=== PATIENT | female | born 1935 | race Caucasian/White ===

== ENCOUNTER 2021-02-11 09:53 | Emergency (ER) | payer MEDICARE ==
[2021-02-11 10:18] VITALS: BP 152/62; PULSE 78
[2021-02-11] MEDS ORDERED: Sodium Chloride 0.9% 10 ML Syringe FLUSH PRN (10:49)
--- NOTE | 2021-02-11 10:49 | EDM.PDOC ---
ED HPI GENERAL MEDICAL PROBLEM - General Chief Complaint: General Stated Complaint: WEAKNESS WHEN TRYING TO GET UP AND IN R ARM Time Seen by Provider: 02/11/21 10:40 Source of Information: Reports: Patient, Family, RN Notes Reviewed History Limitations: Reports: No Limitations - History of Present Illness INITIAL COMMENTS - FREE TEXT/NARRATIVE: 86-year-old female presents emergency department day complaint of weakness increasing shortness of breath and weight gain as well as leg edema. She has a known history of coronary artery disease as well as congestive heart failure she states the symptoms have progressively gotten worse over the last 2 weeks she used to be on Lasix 40 mg daily this has been cut back to 20 mg daily about 6 months prior Lower Back Pain Score (Numeric/FACES): 8 - Related Data Allergies Allergy/AdvReac Type Severity Reaction Status Date / Time shellfish derived Allergy Hives Verified 02/11/21 10:25 enviromental Allergy Other Uncoded 02/11/21 10:25 Home Meds: Home Meds Simvastatin 40 mg PO ACLUNCH 05/01/14 [History] cycloSPORINE [Restasis] 1 drop EYEBOTH BID 05/01/14 [History] Aspirin 81 mg PO DAILY 03/02/15 [History] Furosemide 20 mg PO DAILY 03/02/15 [History] Magnesium Chloride [Mag-64] 64 mg PO TID 03/02/15 [History] Metoprolol Tartrate 12.5 mg PO BID 03/02/15 [History] Potassium Chloride 10 meq PO BID 03/02/15 [History] metFORMIN HCl [Metformin HCl] 500 mg PO BID 03/03/15 [History] Acetaminophen 1 - 2 tab PO Q6H PRN 02/08/19 [History] Calcium Citrate/Vitamin D3 [Calcium Citrate + D] 2 tab PO BID 02/08/19 [History] Cholecalciferol (Vitamin D3) [Vitamin D3] 2,000 unit PO DAILY 02/08/19 [History] Insulin Detemir [Levemir Flextouch] 30 units SQ ACBREAKFAST 02/08/19 [History] Losartan Potassium 12.5 tab PO DAILY 02/08/19 [History] Past Medical History HEENT History: Reports: Impaired Vision Cardiovascular History: Reports: Bypass, CAD, High Cholesterol, Hypertension Other Gastrointestinal History: colon ca 1977 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: Musculoskeletal History: Reports: Back Pain, Chronic Endocrine/Metabolic History: Reports: Diabetes, Type II, Obesity/BMI 30+ Oncologic (Cancer) History: Reports: Colon - Infectious Disease History Infectious Disease History: Reports: Chicken Pox, Measles, Mumps - Past Surgical History Head Surgeries/Procedures: Reports: None HEENT Surgical History: Reports: Cataract Surgery Cardiovascular Surgical History: Reports: Coronary Artery Bypass GI Surgical History: Reports: Appendectomy Endocrine Surgical History: Reports: None Musculoskeletal Surgical History: Reports: None Oncologic Surgical History: Reports: None Dermatological Surgical History: Reports: None Social & Family History - Tobacco Use Tobacco Use Status *Q: Never Tobacco User Second Hand Smoke Exposure: No - Caffeine Use Caffeine Use: Reports: Coffee, Soda - Recreational Drug Use Recreational Drug Use: No ED ROS GENERAL - Review of Systems Review Of Systems: See Below Constitutional: Reports: No Symptoms HEENT: Reports: No Symptoms Respiratory: Reports: Shortness of Breath Cardiovascular: Reports: Dyspnea on Exertion, Edema. Denies: Chest Pain GI/Abdominal: Reports: No Symptoms ED EXAM, GENERAL - Physical Exam Exam: See Below Exam Limited By: No Limitations General Appearance: Alert, WD/WN, No Apparent Distress Respiratory/Chest: No Respiratory Distress, Chest Non-Tender, Decreased Breath Sounds, Crackles Cardiovascular: Regular Rate, Rhythm, No Murmur GI/Abdominal: Soft, Non-Tender Extremities: Pedal Edema Course - Vital Signs Last Recorded V/S: Last Vital Signs Temp 97.5 F 02/11/21 10:29 Pulse 78 02/11/21 10:29 Resp 18 02/11/21 10:29 BP 152/62 H 02/11/21 10:29 Pulse Ox 90 L 02/11/21 10:29 - Orders/Labs/Meds Orders: Active Orders 24 hr Category Date Time Status Peripheral IV Care [RC] . DIRECTED Care 02/11/21 10:49 Active Sodium Chloride 0.9% [Saline Flush] Med 02/11/21 10:49 Active 10 ml FLUSH ASDIRECTED PRN Peripheral IV Insertion Adult [OM.PC] Urgent Oth 02/11/21 10:49 Ordered Medication Orders Sodium Chloride (Sodium Chloride 0.9% 10 Ml Syringe) 10 ml FLUSH ASDIRECTED PRN PRN Reason: Keep Vein Open Last Admin: 02/11/21 12:54 Dose: 10 ml Documented by: PREILOR Labs: Laboratory Tests 02/11/21 02/11/21 Range/Units 11:07 11:07 WBC 6.9 (4.5-11.0) K/uL RBC 4.46 (3.30-5.50) M/uL Hgb 13.4 (12.0-15.0) g/dL Hct 44.3 (36.0-48.0) % MCV 99 H (80-98) fL MCH 30 (27-31) pg MCHC 30 L (32-36) % Plt Count 214 (150-400) K/uL Add Manual Diff Yes Neutrophils % (Manual) 76 H (36-66) % Band Neutrophils % 1 L (5-11) % Lymphocytes % (Manual) 16 L (24-44) % Monocytes % (Manual) 7 H (2-6) % Eosinophils % (Manual) 0 L (2-4) % Basophils % (Manual) 0 (0-1) % Nucleated RBCs 1 Sodium 138 L (140-148) mmol/L Potassium 4.9 (3.6-5.2) mmol/L Chloride 103 (100-108) mmol/L Carbon Dioxide 24 (21-32) mmol/L Anion Gap 15.9 H (5.0-14.0) mmol/L BUN 29 H (7-18) mg/dL Creatinine 1.2 H (0.6-1.0) mg/dL Est Cr Clr Drug Dosing 27.60 mL/min Estimated GFR (MDRD) 43 L (>60) Glucose 123 H (74-106) mg/dL Calcium 8.8 (8.5-10.1) mg/dL Total Bilirubin 0.7 D (0.2-1.0) mg/dL AST 49 H D (15-37) U/L ALT 11 L (12-78) U/L Alkaline Phosphatase 325 H D (46-116) U/L Troponin I 0.020 (0.000-0.056) ng/mL NT-Pro-B Natriuret Pep 37740 H (5-450) pg/mL Total Protein 6.4 (6.4-8.2) g/dL Albumin 2.7 L (3.4-5.0) g/dL Globulin 3.7 H (2.3-3.5) g/dL Albumin/Globulin Ratio 0.7 L (1.2-2.2) Meds: Medications Generic Name Dose Route Start Last Admin Trade Name Fremaggy PRN Reason Stop Dose Admin Sodium Chloride 10 ml 02/11/21 10:49 02/11/21 12:54 Sodium Chloride 0.9% 10 Ml Syringe FLUSH 10 ml ASDIRECTED PRN Administration Keep Vein Open Discontinued Medications Generic Name Dose Route Start Last Admin Trade Name Jacobo PRN Reason Stop Dose Admin Furosemide 60 mg 02/11/21 11:44 02/11/21 12:53 Furosemide 40 Mg/4 Ml Vial IVPUSH 02/11/21 11:45 60 mg ONETIME ONE Administration Departure - Departure Time of Disposition: 14:05 Disposition: Home, Self-Care 01 Condition: Fair Clinical Impression: Acute exacerbation of congestive heart failure Qualifiers: Heart failure type: unspecified Qualified Code(s): I50.9 - Heart failure, unspecified - Discharge Information Instructions: Heart Failure, Self Care, [id number] Referrals: Magan Cabrera MD [Primary Care Provider] - Forms: ED Department Discharge Additional Instructions: Please report to the registration desk tomorrow for outpatient medication treatment nursing staff will call me and I will come and chat with you at that time Sepsis Event Note (ED) - Evaluation Sepsis Screening Result: No Definite Risk - Focused Exam Vital Signs: Vital Signs Temp Pulse Resp BP Pulse Ox 02/11/21 10:29 97.5 F 78 18 152/62 H 90 L 02/11/21 10:17 97.5 F 78 18 152/62 H 90 L - My Orders Last 24 Hours: My Active Orders 02/11/21 10:49 Peripheral IV Care [RC] . DIRECTED Sodium Chloride 0.9% [Saline Flush] 10 ml FLUSH ASDIRECTED PRN Peripheral IV Insertion Adult [OM.PC] Urgent - Assessment/Plan Last 24 Hours: My Active Orders 02/11/21 10:49 Peripheral IV Care [RC] . DIRECTED Sodium Chloride 0.9% [Saline Flush] 10 ml FLUSH ASDIRECTED PRN Peripheral IV Insertion Adult [OM.PC] Urgent Plan: Assessment Acuity = acute Site and laterality = exacerbation congestive heart failure Etiology = unknown Manifestations = shortness of breath weight gain Location of injury = Home Lab values = CBC unremarkable creatinine elevated 1.2 consistent chronic renal failure stage G3 B BNP markedly elevated 18,362 albumin low 2.7 consistent with hypoalbuminemia alk phos elevated 325 chest x-ray demonstrates cardiomegaly Plan She had good success with 60 mg IV Lasix I did offer hospital admission for the ongoing weakness and treatment of her congestive heart failure she preferred to go home and try outpatient treatment. Therefore we will leave the IV in place she will return to either the ED or the outpatient surgery center for another dose of IV Lasix I will reassess her at that time and adjust medications accordingly This note was dictated using [employer] voice recognition software please call with any questions on syntax or grammar.
[2021-02-11] MEDS ORDERED: Furosemide 40 MG/4 ML VIAL IVPUSH ONE (11:44)
--- NOTE | 2021-02-11 12:23 | CR ---
CHEST: Portable 02/11/2021 at 11:20 AM CLINICAL HISTORY:SOB COMPARISON:2011 FINDINGS: The heart is enlarged. Pulmonary vascularity is normal. There is mild generalized interstitial prominence which is felt to be chronic. There is blunting the right costophrenic angle which may represent some minimal right effusion. Impression: Limited study Mild cardiomegaly. Generalized interstitial prominence. Much of this is chronic.
== END 2021-02-11 14:31 | disposition home or self-care (01) ==
LOC: JP.ED 09:53
DX: I11.0 Hypertensive heart disease with heart failure (principal); I50.9 Heart failure, unspecified; I25.10 Atherosclerotic heart disease of native coronary artery without angina pectoris; E11.9 Type 2 diabetes mellitus without complications; E78.00 Pure hypercholesterolemia, unspecified; E66.9 Obesity, unspecified; Z68.36 Body mass index [BMI] 36.0-36.9, adult; Z91.013 Allergy to seafood; Z91.048 Other nonmedicinal substance allergy status; Z79.82 Long term (current) use of aspirin; Z79.4 Long term (current) use of insulin; Z79.899 Other long term (current) drug therapy
CPT/HCPCS: 36415; 71045; 80053; 83880; 84484; 85025; 96374; 99285; J1940

== ENCOUNTER 2021-02-20 12:29 | Inpatient (IN) | payer MEDICARE ==
[2021-02-20] MEDS ORDERED: Sodium Chloride 0.9% 10 ML Syringe FLUSH PRN (13:01)
[2021-02-20] MEDS ORDERED: Glucose Gel 15 GM in 37.5 GM Tube PO PRN (13:01)
[2021-02-20] MEDS ORDERED: Ondansetron 4 MG/2 ML SDV IV PRN (13:01)
[2021-02-20] MEDS ORDERED: Polyethylene Glycol 3350 Powder 17 GM Packet PO PRN (13:01)
[2021-02-20] MEDS ORDERED: 50% Dextrose in Water 50 ML Syringe IV PRN (13:01)
[2021-02-20] MEDS ORDERED: Albuterol 0.083% 2.5 MG/3 ML Neb Soln NEB PRN (13:01)
--- NOTE | 2021-02-20 13:08 | PCM.HP.2 ---
H&P History of Present Illness - General Date of Service: 02/20/21 Admit Problem/Dx: Admission Diagnosis/Problem Admission Diagnosis/Problem CHF, Congestive heart failure Source of Information: Patient, Provider, RN Notes Reviewed History Limitations: Reports: No Limitations - History of Present Illness Initial Comments - Free Text/Narative: Ms. Angulo is an 86-year-old woman who was admitted as a direct admission from the clinic with increased peripheral edema and evidence of pulmonary edema on chest x-ray, having failed outpatient management. She has had difficulty with progressive peripheral edema now extending into her thighs. Chest x-ray obtained last week at the clinic did suggest congestive heart failure as well but she denies significant symptoms of shortness of breath, PND, or orthopnea. Her dose of oral diuretic therapy was increased, unfortunately edema has worsened despite more aggressive therapy. Her weight is up approximately 20 pounds from her baseline and renal function has declined over the past few weeks. She denies any symptoms of infection specifically no fever chills or productive cough. - Related Data Allergies/Adverse Reactions: Allergies Allergy/AdvReac Type Severity Reaction Status Date / Time shellfish derived Allergy Hives Verified 02/11/21 10:25 enviromental Allergy Other Uncoded 02/11/21 10:25 Home Medications: Home Meds Simvastatin 40 mg PO ACLUNCH 05/01/14 [History] cycloSPORINE [Restasis] 1 drop EYEBOTH BID 05/01/14 [History] Aspirin 81 mg PO DAILY 03/02/15 [History] Furosemide 40 mg PO BID 03/02/15 [History] Magnesium Chloride [Mag-64] 64 mg PO TID 03/02/15 [History] Metoprolol Tartrate 12.5 mg PO BID 03/02/15 [History] Potassium Chloride 10 meq PO DAILY 03/02/15 [History] metFORMIN HCl [Metformin HCl] 500 mg PO BID 03/03/15 [History] Acetaminophen 1 - 2 tab PO Q6H PRN 02/08/19 [History] Calcium Citrate/Vitamin D3 [Calcium Citrate + D] 2 tab PO BID 02/08/19 [History] Cholecalciferol (Vitamin D3) [Vitamin D3] 2,000 unit PO DAILY 02/08/19 [History] Insulin Detemir [Levemir Flextouch] 30 units SQ ACBREAKFAST 02/08/19 [History] Losartan Potassium 12.5 mg PO DAILY 02/08/19 [History] Past Medical History HEENT History: Reports: Impaired Vision Cardiovascular History: Reports: Bypass, CAD, High Cholesterol, Hypertension Other Gastrointestinal History: colon ca 1977 Genitourinary History: Reports: None 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: Musculoskeletal History: Reports: Back Pain, Chronic Endocrine/Metabolic History: Reports: Diabetes, Type II, Obesity/BMI 30+ Oncologic (Cancer) History: Reports: Colon - Infectious Disease History Infectious Disease History: Reports: Chicken Pox, Measles, Mumps - Past Surgical History Head Surgeries/Procedures: Reports: None HEENT Surgical History: Reports: Cataract Surgery Cardiovascular Surgical History: Reports: Coronary Artery Bypass GI Surgical History: Reports: Appendectomy Endocrine Surgical History: Reports: None Musculoskeletal Surgical History: Reports: None Oncologic Surgical History: Reports: None Dermatological Surgical History: Reports: None Social & Family History - Caffeine Use Caffeine Use: Reports: Coffee, Soda H&P Review of Systems - Review of Systems: Review Of Systems: See Below General: Reports: Malaise, Weakness, Fatigue. Denies: Fever, Chills HEENT: Reports: No Symptoms Pulmonary: Reports: No Symptoms Cardiovascular: Reports: Dyspnea on Exertion, Edema. Denies: Chest Pain, Palpitations, Orthopnea, PND, Lightheadedness, Syncope Gastrointestinal: Reports: No Symptoms Genitourinary: Reports: No Symptoms Musculoskeletal: Reports: No Symptoms Skin: Reports: No Symptoms Psychiatric: Reports: No Symptoms Neurological: Reports: No Symptoms Hematologic/Lymphatic: Reports: No Symptoms Immunologic: Reports: No Symptoms Exam - Exam Exam: See Below - Vital Signs Vital Signs: Last Vital Signs Temp 97.6 F 02/20/21 12:47 Pulse 72 02/20/21 12:47 Resp 24 H 02/20/21 12:47 BP 107/31 L 02/20/21 12:47 Pulse Ox 94 L 02/20/21 12:47 Weight: 200 lb 13.458 oz - Exam Quality Assessment: DVT Prophylaxis General: Alert, Oriented, Cooperative, Mild Distress HEENT: Conjunctiva Clear, Hearing Intact, Mucosa Moist & [place], Normal Nasal Septum, Posterior Pharynx Clear, Pupils Equal Neck: Supple, Trachea Midline, +2 Carotid Pulse wo Bruit Lungs: Normal Respiratory Effort, Decreased Breath Sounds. No: Rales, Rhonchi, Wheezing Cardiovascular: Regular Rate, Regular Rhythm, Normal S1, Normal S2. No: Systolic Murmur, Diastolic Murmur GI/Abdominal Exam: Soft, Non-Tender, No Organomegaly, No Distention Extremities: Non-Tender, Pedal Edema Skin: Warm, Dry, Intact Neurological: Cranial Nerves Intact, Strength Equal Bilateral, Normal Speech, Normal Tone, Sensation Intact. No: Focal Deficit Neuro Extensive - Mental Status: Alert, Oriented x3, Normal Mood/Affect, Normal Cognition, Memory Intact - Patient Data Result Diagrams: 02/20/21 13:40 02/20/21 13:40 Sepsis Event Note - Focused Exam Vital Signs: Vital Signs Temp Pulse Resp BP Pulse Ox 02/20/21 12:47 97.6 F 72 24 H 107/31 L 94 L *Q Meaningful Use (ADM) - VTE Risk Assess *Q Each Risk Factor Represents 1 Point: Swollen Legs, Current, Obesity ( BMI > 25 kg/m2), Congestive heart failure (CHF) Total Score 1 Point Risk Factors: 3 Each Risk Factor Represents 2 Points: None, Malignancy (present or previous) Total Score 2 Point Risk Factors: 2 Each Risk Factor Represents 3 Points: Age 75 Years or Greater Total Score 3 Point Risk Factors: 3 Each Risk Factor Represents 5 Points: None Total Score 5 Point Risk Factors: 0 Venous Thromboembolism Risk Factor Score *Q: 8 Problem List Initiated/Reviewed/Updated: Yes Orders Last 24hrs: Active Orders 24 hr Category Date Time Status Patient Status [ADT] Routine ADT 02/20/21 13:02 Ordered Ambulate [RC] QID Care 02/20/21 13:02 Ordered Communication Order [RC] STAT Care 02/20/21 13:02 Ordered Diabetes Education [RC] Click to Edit Care 02/20/21 13:02 Ordered EKG Documentation Completion [RC] ASDIRECTED Care 02/20/21 13:06 Ordered Height and Weight [RC] DAILY Care 02/20/21 13:02 Ordered Intake and Output [RC] QSHIFT Care 02/20/21 13:02 Ordered Notify Provider Vital Signs [RC] ASDIRECTED Care 02/20/21 13:02 Ordered Notify Provider [RC] PRN Care 02/20/21 13:02 Ordered Oxygen Therapy [RC] PRN Care 02/20/21 13:02 Ordered RT Aerosol Therapy [RC] ASDIRECTED Care 02/20/21 13:05 Ordered Up With Assistance [RC] ASDIRECTED Care 02/20/21 13:01 Ordered Up to Chair [RC] QID Care 02/20/21 13:02 Ordered VTE/DVT Education [RC] Per Unit Routine Care 02/20/21 13:02 Ordered Vital Signs [RC] Q4H Care 02/20/21 13:02 Ordered PT Evaluation and Treatment [CONS] Routine Cons 02/20/21 13:01 Ordered 2 Gram Sodium Diet [DIET] Diet 02/20/21 Lunch Ordered Chest 2V [CR] Stat Exams 02/20/21 13:01 Ordered BASIC METABOLIC PANEL,BMP [CHEM] Timed Lab 02/21/21 05:00 Ordered CBC WITH AUTO DIFF [HEME] Stat Lab 02/20/21 13:01 Ordered COMPREHENSIVE METABOLIC PN,CMP [CHEM] Stat Lab 02/20/21 13:01 Ordered GLUCOSE POC LAB TO COLLECT JPM [POC] QIDACANDBED Lab 02/20/21 16:30 Ordered GLUCOSE POC LAB TO COLLECT JPM [POC] QIDACANDBED Lab 02/20/21 21:00 Ordered GLUCOSE POC LAB TO COLLECT JPM [POC] QIDACANDBED Lab 02/21/21 07:30 Ordered GLUCOSE POC LAB TO COLLECT JPM [POC] QIDACANDBED Lab 02/21/21 11:30 Ordered GLUCOSE POC LAB TO COLLECT JPM [POC] QIDACANDBED Lab 02/21/21 16:30 Ordered GLUCOSE POC LAB TO COLLECT JPM [POC] QIDACANDBED Lab 02/21/21 21:00 Ordered GLUCOSE POC LAB TO COLLECT JPM [POC] QIDACANDBED Lab 02/22/21 07:30 Ordered GLUCOSE POC LAB TO COLLECT JPM [POC] QIDACANDBED Lab 02/22/21 11:30 Ordered GLUCOSE POC LAB TO COLLECT JPM [POC] QIDACANDBED Lab 02/22/21 16:30 Ordered GLUCOSE POC LAB TO COLLECT JPM [POC] QIDACANDBED Lab 02/22/21 21:00 Ordered GLUCOSE POC LAB TO COLLECT JPM [POC] QIDACANDBED Lab 02/23/21 07:30 Ordered GLUCOSE POC LAB TO COLLECT JPM [POC] QIDACANDBED Lab 02/23/21 11:30 Ordered GLUCOSE POC LAB TO COLLECT JPM [POC] QIDACANDBED Lab 02/23/21 16:30 Ordered GLUCOSE POC LAB TO COLLECT JPM [POC] QIDACANDBED Lab 02/23/21 21:00 Ordered GLUCOSE POC LAB TO COLLECT JPM [POC] QIDACANDBED Lab 02/24/21 07:30 Ordered GLUCOSE POC LAB TO COLLECT JPM [POC] QIDACANDBED Lab 02/24/21 11:30 Ordered GLUCOSE POC LAB TO COLLECT JPM [POC] QIDACANDBED Lab 02/24/21 16:30 Ordered GLUCOSE POC LAB TO COLLECT JPM [POC] QIDACANDBED Lab 02/24/21 21:00 Ordered GLUCOSE POC LAB TO COLLECT JPM [POC] QIDACANDBED Lab 02/25/21 07:30 Ordered GLUCOSE POC LAB TO COLLECT JPM [POC] QIDACANDBED Lab 02/25/21 11:30 Ordered MAGNESIUM [CHEM] Stat Lab 02/20/21 13:01 Ordered MAGNESIUM [CHEM] Timed Lab 02/21/21 05:00 Ordered Acetaminophen [TylenoL] Med 02/20/21 13:01 Ordered 650 mg PO Q4H PRN Albuterol [Proventil Neb Soln] Med 02/20/21 13:01 Ordered 2.5 mg NEB Q4H PRN Bumetanide [Bumex] Med 02/20/21 13:07 Once 2 mg IVPUSH ONETIME ONE Dextrose 50% in Water Med 02/20/21 13:01 Ordered 50 ml IV ONETIME PRN Dextrose [Glutose 15] Med 02/20/21 13:01 Ordered 15 gm PO ONETIME PRN Enoxaparin [Lovenox] Med 02/20/21 13:15 Ordered 40 mg SUBCUT DAILY Insulin Detemir [Levemir Flextouch] Med 02/21/21 07:30 Ordered 30 units SQ ACBREAKFAST Insulin Lispro [HumaLOG] Med 02/20/21 17:00 Ordered See Protocol SUBCUT QIDACANDBED Losartan [Cozaar] Med 02/21/21 09:00 Ordered 12.5 tab PO DAILY Magnesium Chloride [Mag-64] Med 02/20/21 14:00 Ordered 64 mg PO TID Metoprolol Tartrate [Lopressor] Med 02/20/21 21:00 Ordered 12.5 mg PO BID Ondansetron [Zofran] Med 02/20/21 13:01 Ordered 4 mg IV Q4H PRN Simvastatin [Simvastatin] Med 02/21/21 11:00 Ordered 40 mg PO ACLUNCH Sodium Chloride 0.9% [Saline Flush] Med 02/20/21 13:01 Ordered 10 ml FLUSH ASDIRECTED PRN cycloSPORINE [Restasis] Med 02/20/21 21:00 Ordered 1 drop EYEBOTH BID metFORMIN [Glucophage] Med 02/20/21 21:00 Ordered 500 mg PO BID polyethylene glycoL 3350 [MiraLAX] Med 02/20/21 13:01 Ordered 17 gm PO DAILY PRN Saline Lock Insert [OM.PC] Routine Oth 02/20/21 13:01 Ordered Resuscitation Status Routine Resus Stat 02/20/21 13:01 Ordered EKG 12 Lead [EK] Stat Ther 02/20/21 13:01 Ordered Assessment/Plan Comment:: ASSESSMENT AND PLAN PROBABLE CONGESTIVE HEART FAILURE-recent progressive increase in peripheral edema and evidence of pulmonary edema noted on chest x-ray. Most of her symptoms are related to the increase in peripheral edema, she does note shortness of breath with exertion. -2 g sodium diet -IV Bumex now, reassess in a.m. -Echocardiogram when available Tuesday or as outpatient CHRONIC KIDNEY DISEASE STAGE III -Closely monitor urine output and renal function TYPE 2 DIABETES MELLITUS -Continue outpatient medications and long-acting insulin -4 times daily glucometers -Low-dose sliding scale Humalog MAINTENANCE ISSUES -DVT prophylaxis; Lovenox 40 mg subcu daily -GI prophylaxis; not indicated -[place] catheter; not indicated -Nutrition; 2 g sodium diet -Nicotine dependence; not required CODE STATUS-FULL CODE ADMISSION STATUS-patient will be admitted to inpatient status, expect at least a 2 night hospital stay for evaluation and management of problems as outlined above. At the time of this admission I do not reasonably expected evaluation and management of this problem will require more than a 96 hour hospital stay. DISPOSITION-anticipate discharge to home after the hospital stay. PRIMARY CARE PROVIDER-Dr. Cabrera - Mortality Measure Prognosis:: Good
[2021-02-20] MEDS ORDERED: Enoxaparin 40 MG/0.4 ML Syringe SUBCUT SCH (13:15)
[2021-02-20] MEDS ORDERED: Bumetanide 1 MG/4 ML MDV IVPUSH ONE (13:45)
[2021-02-20] MEDS ORDERED: Hypromellose 0.3% Ophth Soln 15 ML Bottle EYEBOTH PRN (13:57)
[2021-02-20] MEDS ORDERED: Non-Formulary Medication 1 Each (Magnesium Chloride [Mag-64] 64 MG Tab.Er) PO SCH (14:00)
--- NOTE | 2021-02-20 14:38 | CR ---
CHEST: 2 view CLINICAL HISTORY:Dyspnea COMPARISON:02/11/2021 FINDINGS: Study is limited due to patient's large body habitus. Heart is enlarged. Pulmonary vascular areas cephalized. There is a small right effusion. There are atherosclerotic changes in the aorta. IMPRESSION: Cardiac megaly Vascular congestion suggests pulmonary venous hypertension Small right pleural effusion also seen on 02/11/2021
[2021-02-20] MEDS ORDERED: Bumetanide 1 MG/4 ML MDV ONE (15:14)
[2021-02-20] MEDS: Enoxaparin 30 MG/0.3 ML Syringe SUBCUT SCH (16:39)
[2021-02-20] MEDS: Insulin Lispro 100 Unit/ML 3 ML KwikPen SUBCUT SCH ×2 (16:40→21:18)
[2021-02-20] MEDS: metFORMIN 500 MG Tab PO SCH (16:42)
[2021-02-20] MEDS: Sodium Chloride 0.9% 1,000 ML IV SCH (17:04)
[2021-02-20] MEDS: Acetaminophen 325 MG Tab PO PRN (20:07)
[2021-02-20] MEDS ORDERED: Non-Formulary Medication 1 Each (Cyclosporine [Restasis] 1 EACH Amp) EYEBOTH SCH (21:00)
[2021-02-20] MEDS ORDERED: Nystatin Topical Powder 15 GM Bottle TOP SCH (21:00)
[2021-02-20] MEDS ORDERED: Magnesium Oxide 400 MG Tab PO SCH (21:00)
[2021-02-20] MEDS: Metoprolol Tartrate 25 MG Tab PO SCH (21:20)
[2021-02-21] MEDS: Sodium Chloride 0.9% 1,000 ML IV SCH (03:05)
[2021-02-21] MEDS: Acetaminophen 325 MG Tab PO PRN ×4 (07:24→19:33)
[2021-02-21] MEDS: Insulin Lispro 100 Unit/ML 3 ML KwikPen SUBCUT SCH ×4 (07:27→20:11)
[2021-02-21] MEDS ORDERED: INSULIN DETEMIR SQ SCH (07:30)
[2021-02-21] MEDS ORDERED: Insulin Glargine,Human Rec. Analog 100 Units/ML 3 ML Pen SUBCUT SCH (07:30)
[2021-02-21] MEDS: metFORMIN 500 MG Tab PO SCH (08:32)
[2021-02-21] MEDS: Insulin Glargine,Human Rec. Analog 100 Units/ML 3 ML Pen SUBCUT SCH (08:33)
[2021-02-21] MEDS: Magnesium Oxide 400 MG Tab PO SCH (08:34)
[2021-02-21] MEDS: traMADol 50 MG Tab PO SCH (08:35)
[2021-02-21] MEDS: Nystatin Topical Powder 15 GM Bottle TOP SCH ×3 (08:35→20:20)
[2021-02-21] MEDS: Losartan 25 MG Tab PO SCH (08:39)
[2021-02-21] MEDS: Metoprolol Tartrate 25 MG Tab PO SCH ×2 (08:40→20:19)
[2021-02-21] MEDS: Bumetanide 2.5 MG/10 ML MDV IVPUSH SCH ×2 (08:44→20:20)
--- NOTE | 2021-02-21 10:16 | PCM.PN ---
- General Info Date of Service: 02/21/21 Subjective Update: Ms. Angulo has remained fairly stable since admission yesterday. Because of abnormalities noted on labs she did receive some IV fluids through the night for hydration. Lactic acid level has improved. She remains fairly weak and relatively inactive, she does have longstanding low back pain which causes difficulty with transfers and ambulation. Functional Status: Reports: Tolerating Diet, Urinating - Review of Systems General: Reports: Weakness, Fatigue. Denies: Fever, Chills Pulmonary: Reports: No Symptoms Cardiovascular: Reports: Dyspnea on Exertion, Edema. Denies: Chest Pain, Palpitations, Orthopnea, PND Gastrointestinal: Reports: No Symptoms Genitourinary: Reports: No Symptoms - Patient Data Vitals - Most Recent: Last Vital Signs Temp 97.3 F 02/21/21 07:07 Pulse 62 02/21/21 08:40 Resp 16 02/21/21 07:07 BP 109/57 L 02/21/21 08:40 Pulse Ox 95 02/21/21 07:07 Weight - Most Recent: 204 lb 12.951 oz I&O - Last 24 Hours: Intake & Output 02/20/21 02/21/21 02/21/21 22:59 06:59 14:59 Intake Total 470 1508 969 Output Total 1300 400 Balance -830 1108 969 Lab Results Last 24 Hours: Laboratory Results - last 24 hr 02/20/21 02/20/21 02/20/21 Range/Units 13:40 13:40 14:51 WBC 9.5 (4.5-11.0) K/uL RBC 4.55 (3.30-5.50) M/uL Hgb 14.4 (12.0-15.0) g/dL Hct 44.7 (36.0-48.0) % MCV 98 (80-98) fL MCH 32 H (27-31) pg MCHC 32 (32-36) % Plt Count 170 (150-400) K/uL Add Manual Diff Yes Neutrophils % (Manual) 76 H (36-66) % Band Neutrophils % 4 L (5-11) % Lymphocytes % (Manual) 10 L (24-44) % Monocytes % (Manual) 10 H (2-6) % Sodium 133 L (140-148) mmol/L Potassium 5.1 (3.6-5.2) mmol/L Chloride 101 (100-108) mmol/L Carbon Dioxide 17 L (21-32) mmol/L Anion Gap 20.1 H (5.0-14.0) mmol/L BUN 43 H (7-18) mg/dL Creatinine 1.6 H (0.6-1.0) mg/dL Est Cr Clr Drug Dosing 20.70 mL/min Estimated GFR (MDRD) 31 L (>60) Glucose 122 H (74-106) mg/dL POC Glucose (74-106) mg/dL Lactic Acid 4.1 H (0.4-2.0) mmol/L Calcium 8.5 (8.5-10.1) mg/dL Magnesium 1.8 (1.8-2.4) mg/dL Total Bilirubin 0.9 (0.2-1.0) mg/dL AST 96 H D (15-37) U/L ALT 11 L (12-78) U/L Alkaline Phosphatase 353 H (46-116) U/L Total Protein 6.2 L (6.4-8.2) g/dL Albumin 2.5 L (3.4-5.0) g/dL Globulin 3.7 H (2.3-3.5) g/dL Albumin/Globulin Ratio 0.7 L (1.2-2.2) Procalcitonin ng/mL 02/20/21 02/20/21 02/20/21 Range/Units 14:51 16:21 21:09 WBC (4.5-11.0) K/uL RBC (3.30-5.50) M/uL Hgb (12.0-15.0) g/dL Hct (36.0-48.0) % MCV (80-98) fL MCH (27-31) pg MCHC (32-36) % Plt Count (150-400) K/uL Add Manual Diff Neutrophils % (Manual) (36-66) % Band Neutrophils % (5-11) % Lymphocytes % (Manual) (24-44) % Monocytes % (Manual) (2-6) % Sodium (140-148) mmol/L Potassium (3.6-5.2) mmol/L Chloride (100-108) mmol/L Carbon Dioxide (21-32) mmol/L Anion Gap (5.0-14.0) mmol/L BUN (7-18) mg/dL Creatinine (0.6-1.0) mg/dL Est Cr Clr Drug Dosing mL/min Estimated GFR (MDRD) (>60) Glucose (74-106) mg/dL POC Glucose 93 72 L (74-106) mg/dL Lactic Acid (0.4-2.0) mmol/L Calcium (8.5-10.1) mg/dL Magnesium (1.8-2.4) mg/dL Total Bilirubin (0.2-1.0) mg/dL AST (15-37) U/L ALT (12-78) U/L Alkaline Phosphatase (46-116) U/L Total Protein (6.4-8.2) g/dL Albumin (3.4-5.0) g/dL Globulin (2.3-3.5) g/dL Albumin/Globulin Ratio (1.2-2.2) Procalcitonin 0.37 ng/mL 02/20/21 02/21/21 02/21/21 Range/Units 21:15 04:15 04:15 WBC (4.5-11.0) K/uL RBC (3.30-5.50) M/uL Hgb (12.0-15.0) g/dL Hct (36.0-48.0) % MCV (80-98) fL MCH (27-31) pg MCHC (32-36) % Plt Count (150-400) K/uL Add Manual Diff Neutrophils % (Manual) (36-66) % Band Neutrophils % (5-11) % Lymphocytes % (Manual) (24-44) % Monocytes % (Manual) (2-6) % Sodium 135 L (140-148) mmol/L Potassium 4.6 (3.6-5.2) mmol/L Chloride 102 (100-108) mmol/L Carbon Dioxide 20 L (21-32) mmol/L Anion Gap 17.6 H (5.0-14.0) mmol/L BUN 41 H (7-18) mg/dL Creatinine 1.5 H (0.6-1.0) mg/dL Est Cr Clr Drug Dosing 22.08 mL/min Estimated GFR (MDRD) 33 L (>60) Glucose 94 (74-106) mg/dL POC Glucose (74-106) mg/dL Lactic Acid 2.7 H 2.4 H (0.4-2.0) mmol/L Calcium 8.5 (8.5-10.1) mg/dL Magnesium 1.8 (1.8-2.4) mg/dL Total Bilirubin (0.2-1.0) mg/dL AST (15-37) U/L ALT (12-78) U/L Alkaline Phosphatase (46-116) U/L Total Protein (6.4-8.2) g/dL Albumin (3.4-5.0) g/dL Globulin (2.3-3.5) g/dL Albumin/Globulin Ratio (1.2-2.2) Procalcitonin ng/mL 02/21/21 Range/Units 04:15 WBC (4.5-11.0) K/uL RBC (3.30-5.50) M/uL Hgb (12.0-15.0) g/dL Hct (36.0-48.0) % MCV (80-98) fL MCH (27-31) pg MCHC (32-36) % Plt Count (150-400) K/uL Add Manual Diff Neutrophils % (Manual) (36-66) % Band Neutrophils % (5-11) % Lymphocytes % (Manual) (24-44) % Monocytes % (Manual) (2-6) % Sodium (140-148) mmol/L Potassium (3.6-5.2) mmol/L Chloride (100-108) mmol/L Carbon Dioxide (21-32) mmol/L Anion Gap (5.0-14.0) mmol/L BUN (7-18) mg/dL Creatinine (0.6-1.0) mg/dL Est Cr Clr Drug Dosing mL/min Estimated GFR (MDRD) (>60) Glucose (74-106) mg/dL POC Glucose (74-106) mg/dL Lactic Acid (0.4-2.0) mmol/L Calcium (8.5-10.1) mg/dL Magnesium (1.8-2.4) mg/dL Total Bilirubin (0.2-1.0) mg/dL AST (15-37) U/L ALT (12-78) U/L Alkaline Phosphatase (46-116) U/L Total Protein (6.4-8.2) g/dL Albumin (3.4-5.0) g/dL Globulin (2.3-3.5) g/dL Albumin/Globulin Ratio (1.2-2.2) Procalcitonin 0.44 ng/mL Med Orders - Current: Current Medications Acetaminophen (Acetaminophen 325 Mg Tab) 650 mg PO Q4H PRN PRN Reason: Pain (Mild 1-3)/fever Last Admin: 02/21/21 07:24 Dose: 650 mg Documented by: Albuterol (Albuterol 0.083% 2.5 Mg/3 Ml Neb Soln) 2.5 mg NEB Q4H PRN PRN Reason: Shortness Of Breath/wheezing Artificial Tears (Hypromellose 0.3% Ophth Soln 15 Ml Bottle) 0 ml EYEBOTH QID PRN PRN Reason: DRY EYES Atorvastatin Calcium (Atorvastatin 20 Mg Tab) 20 mg PO DAILY@1200 RICHIE Bumetanide (Bumetanide 2.5 Mg/10 Ml Mdv) 2 mg IVPUSH Q12H [facility] Last Admin: 02/21/21 08:44 Dose: 2 mg Documented by: Dextrose (Glucose Gel 15 Gm In 37.5 Gm Tube) 15 gm PO ONETIME PRN PRN Reason: Hypoglycemia Dextrose/Water (50% Dextrose In Water 50 Ml Syringe) 50 ml IV ONETIME PRN PRN Reason: Hypoglycemia Enoxaparin Sodium (Enoxaparin 30 Mg/0.3 Ml Syringe) 30 mg SUBCUT Q24H [facility] Last Admin: 02/20/21 16:39 Dose: 30 mg Documented by: Insulin Glargine (Insulin Glargine,Human Rec. Analog 100 Units/Ml 3 Ml Pen) 25 units SUBCUT ACBREAKFAST [facility] Last Admin: 02/21/21 08:33 Dose: 12 units Documented by: Insulin Human Lispro (Insulin Lispro 100 Unit/Ml 3 Ml Kwikpen) 0 unit SUBCUT QIDACANDBED [facility]; Protocol Last Admin: 02/21/21 07:27 Dose: Not Given Documented by: Losartan Potassium (Losartan 25 Mg Tab) 12.5 mg PO DAILY [facility] Last Admin: 02/21/21 08:39 Dose: 12.5 mg Documented by: Magnesium Oxide (Magnesium Oxide 400 Mg Tab) 400 mg PO DAILY [facility] Last Admin: 02/21/21 08:34 Dose: 400 mg Documented by: Metformin HCl (Metformin 500 Mg Tab) 500 mg PO BIDMEALS [facility] Last Admin: 02/21/21 08:32 Dose: 500 mg Documented by: Metoprolol Tartrate (Metoprolol Tartrate 25 Mg Tab) 12.5 mg PO BID [facility] Last Admin: 02/21/21 08:40 Dose: 12.5 mg Documented by: Nystatin (Nystatin Topical Powder 15 Gm Bottle) 0 gm TOP TID [facility] Last Admin: 02/21/21 08:35 Dose: 1 applic Documented by: Ondansetron HCl (Ondansetron 4 Mg/2 Ml Sdv) 4 mg IV Q4H PRN PRN Reason: Nausea/Vomiting Polyethylene Glycol (Polyethylene Glycol 3350 Powder 17 Gm Packet) 17 gm PO DAILY PRN PRN Reason: Constipation Sodium Chloride (Sodium Chloride 0.9% 10 Ml Syringe) 10 ml FLUSH ASDIRECTED PRN PRN Reason: Keep Vein Open Tramadol HCl (Tramadol 50 Mg Tab) 50 mg PO DAILY [facility] Last Admin: 02/21/21 08:35 Dose: 50 mg Documented by: Discontinued Medications Bumetanide (Bumetanide 1 Mg/4 Ml Mdv) 2 mg IVPUSH ONETIME ONE Stop: 02/20/21 13:46 Last Admin: 02/20/21 14:58 Dose: 2 mg Documented by: Bumetanide (Bumetanide 1 Mg/4 Ml Mdv) Confirm Administered Dose 1 mg .ROUTE .STK-MED ONE Stop: 02/20/21 15:15 Last Admin: 02/20/21 16:23 Dose: Not Given Documented by: Sodium Chloride (Normal Saline) 1,000 mls @ 100 mls/hr IV ASDIRECTED [facility] Last Admin: 02/21/21 03:05 Dose: 100 mls/hr Documented by: Magnesium Oxide (Magnesium Oxide 400 Mg Tab) 400 mg PO BID [facility] Nystatin (Nystatin Topical Powder 15 Gm Bottle) 0 gm TOP TID [facility] Last Admin: 02/20/21 21:24 Dose: 1 dose Documented by: - Exam Quality Assessment: DVT Prophylaxis General: Alert, Oriented, Cooperative, Mild Distress Lungs: Clear to Auscultation, Normal Respiratory Effort, Decreased Breath Sounds Cardiovascular: Regular Rate, Regular Rhythm, No Murmurs GI/Abdominal Exam: Soft, Non-Tender, No Organomegaly, No Distention Extremities: Non-Tender, Pedal Edema - Patient Data Lab Results Last 24 hrs: Laboratory Results - last 24 hr 02/20/21 02/20/21 02/20/21 Range/Units 13:40 13:40 14:51 WBC 9.5 (4.5-11.0) K/uL RBC 4.55 (3.30-5.50) M/uL Hgb 14.4 (12.0-15.0) g/dL Hct 44.7 (36.0-48.0) % MCV 98 (80-98) fL MCH 32 H (27-31) pg MCHC 32 (32-36) % Plt Count 170 (150-400) K/uL Add Manual Diff Yes Neutrophils % (Manual) 76 H (36-66) % Band Neutrophils % 4 L (5-11) % Lymphocytes % (Manual) 10 L (24-44) % Monocytes % (Manual) 10 H (2-6) % Sodium 133 L (140-148) mmol/L Potassium 5.1 (3.6-5.2) mmol/L Chloride 101 (100-108) mmol/L Carbon Dioxide 17 L (21-32) mmol/L Anion Gap 20.1 H (5.0-14.0) mmol/L BUN 43 H (7-18) mg/dL Creatinine 1.6 H (0.6-1.0) mg/dL Est Cr Clr Drug Dosing 20.70 mL/min Estimated GFR (MDRD) 31 L (>60) Glucose 122 H (74-106) mg/dL POC Glucose (74-106) mg/dL Lactic Acid 4.1 H (0.4-2.0) mmol/L Calcium 8.5 (8.5-10.1) mg/dL Magnesium 1.8 (1.8-2.4) mg/dL Total Bilirubin 0.9 (0.2-1.0) mg/dL AST 96 H D (15-37) U/L ALT 11 L (12-78) U/L Alkaline Phosphatase 353 H (46-116) U/L Total Protein 6.2 L (6.4-8.2) g/dL Albumin 2.5 L (3.4-5.0) g/dL Globulin 3.7 H (2.3-3.5) g/dL Albumin/Globulin Ratio 0.7 L (1.2-2.2) Procalcitonin ng/mL 02/20/21 02/20/21 02/20/21 Range/Units 14:51 16:21 21:09 WBC (4.5-11.0) K/uL RBC (3.30-5.50) M/uL Hgb (12.0-15.0) g/dL Hct (36.0-48.0) % MCV (80-98) fL MCH (27-31) pg MCHC (32-36) % Plt Count (150-400) K/uL Add Manual Diff Neutrophils % (Manual) (36-66) % Band Neutrophils % (5-11) % Lymphocytes % (Manual) (24-44) % Monocytes % (Manual) (2-6) % Sodium (140-148) mmol/L Potassium (3.6-5.2) mmol/L Chloride (100-108) mmol/L Carbon Dioxide (21-32) mmol/L Anion Gap (5.0-14.0) mmol/L BUN (7-18) mg/dL Creatinine (0.6-1.0) mg/dL Est Cr Clr Drug Dosing mL/min Estimated GFR (MDRD) (>60) Glucose (74-106) mg/dL POC Glucose 93 72 L (74-106) mg/dL Lactic Acid (0.4-2.0) mmol/L Calcium (8.5-10.1) mg/dL Magnesium (1.8-2.4) mg/dL Total Bilirubin (0.2-1.0) mg/dL AST (15-37) U/L ALT (12-78) U/L Alkaline Phosphatase (46-116) U/L Total Protein (6.4-8.2) g/dL Albumin (3.4-5.0) g/dL Globulin (2.3-3.5) g/dL Albumin/Globulin Ratio (1.2-2.2) Procalcitonin 0.37 ng/mL 02/20/21 02/21/21 02/21/21 Range/Units 21:15 04:15 04:15 WBC (4.5-11.0) K/uL RBC (3.30-5.50) M/uL Hgb (12.0-15.0) g/dL Hct (36.0-48.0) % MCV (80-98) fL MCH (27-31) pg MCHC (32-36) % Plt Count (150-400) K/uL Add Manual Diff Neutrophils % (Manual) (36-66) % Band Neutrophils % (5-11) % Lymphocytes % (Manual) (24-44) % Monocytes % (Manual) (2-6) % Sodium 135 L (140-148) mmol/L Potassium 4.6 (3.6-5.2) mmol/L Chloride 102 (100-108) mmol/L Carbon Dioxide 20 L (21-32) mmol/L Anion Gap 17.6 H (5.0-14.0) mmol/L BUN 41 H (7-18) mg/dL Creatinine 1.5 H (0.6-1.0) mg/dL Est Cr Clr Drug Dosing 22.08 mL/min Estimated GFR (MDRD) 33 L (>60) Glucose 94 (74-106) mg/dL POC Glucose (74-106) mg/dL Lactic Acid 2.7 H 2.4 H (0.4-2.0) mmol/L Calcium 8.5 (8.5-10.1) mg/dL Magnesium 1.8 (1.8-2.4) mg/dL Total Bilirubin (0.2-1.0) mg/dL AST (15-37) U/L ALT (12-78) U/L Alkaline Phosphatase (46-116) U/L Total Protein (6.4-8.2) g/dL Albumin (3.4-5.0) g/dL Globulin (2.3-3.5) g/dL Albumin/Globulin Ratio (1.2-2.2) Procalcitonin ng/mL 02/21/21 Range/Units 04:15 WBC (4.5-11.0) K/uL RBC (3.30-5.50) M/uL Hgb (12.0-15.0) g/dL Hct (36.0-48.0) % MCV (80-98) fL MCH (27-31) pg MCHC (32-36) % Plt Count (150-400) K/uL Add Manual Diff Neutrophils % (Manual) (36-66) % Band Neutrophils % (5-11) % Lymphocytes % (Manual) (24-44) % Monocytes % (Manual) (2-6) % Sodium (140-148) mmol/L Potassium (3.6-5.2) mmol/L Chloride (100-108) mmol/L Carbon Dioxide (21-32) mmol/L Anion Gap (5.0-14.0) mmol/L BUN (7-18) mg/dL Creatinine (0.6-1.0) mg/dL Est Cr Clr Drug Dosing mL/min Estimated GFR (MDRD) (>60) Glucose (74-106) mg/dL POC Glucose (74-106) mg/dL Lactic Acid (0.4-2.0) mmol/L Calcium (8.5-10.1) mg/dL Magnesium (1.8-2.4) mg/dL Total Bilirubin (0.2-1.0) mg/dL AST (15-37) U/L ALT (12-78) U/L Alkaline Phosphatase (46-116) U/L Total Protein (6.4-8.2) g/dL Albumin (3.4-5.0) g/dL Globulin (2.3-3.5) g/dL Albumin/Globulin Ratio (1.2-2.2) Procalcitonin 0.44 ng/mL Result Diagrams: 02/20/21 13:40 02/21/21 04:15 Sepsis Event Note - Evaluation Sepsis Screening Result: No Definite Risk - Focused Exam Vital Signs: Vital Signs Temp Pulse Pulse Resp BP BP Pulse Ox 02/21/21 08:40 62 109/57 L 02/21/21 08:39 109/57 L 02/21/21 07:07 97.3 F 101 H 16 122/51 L 95 02/21/21 03:00 97.8 F 84 16 121/64 96 02/21/21 00:00 96.9 F 62 18 96/55 L 96 - Problem List Review Problem List Initiated/Reviewed/Updated: Yes - My Orders Last 24 Hours: My Active Orders 02/20/21 Lunch 2 Gram Sodium Diet [DIET] 02/20/21 13:01 Up With Assistance [RC] ASDIRECTED PT Evaluation and Treatment [CONS] Routine Acetaminophen [TylenoL] 650 mg PO Q4H PRN Albuterol [Proventil Neb Soln] 2.5 mg NEB Q4H PRN Dextrose 50% in Water 50 ml IV ONETIME PRN Dextrose [Glutose 15] 15 gm PO ONETIME PRN Ondansetron [Zofran] 4 mg IV Q4H PRN Sodium Chloride 0.9% [Saline Flush] 10 ml FLUSH ASDIRECTED PRN polyethylene glycoL 3350 [MiraLAX] 17 gm PO DAILY PRN Saline Lock Insert [OM.PC] Routine Resuscitation Status Routine EKG 12 Lead [EK] Stat 02/20/21 13:02 Patient Status [ADT] Routine Ambulate [RC] QID Diabetes Education [RC] Click to Edit Height and Weight [RC] DAILY Intake and Output [RC] QSHIFT Notify Provider Vital Signs [RC] ASDIRECTED Notify Provider [RC] PRN Oxygen Therapy [RC] PRN Up to Chair [RC] QID VTE/DVT Education [RC] Per Unit Routine Vital Signs [RC] Q4H 02/20/21 13:05 RT Aerosol Therapy [RC] ASDIRECTED 02/20/21 13:57 Hypromellose [GenTeal Mild to Moderate Ophth Soln] 0 ml EYEBOTH QID PRN 02/20/21 15:00 Enoxaparin [Lovenox] 30 mg SUBCUT Q24H 02/20/21 17:00 Insulin Lispro [HumaLOG] See Protocol SUBCUT QIDACANDBED metFORMIN [Glucophage] 500 mg PO BIDMEALS 02/20/21 17:35 Communication Order [RC] ASDIRECTED 02/20/21 21:00 Blood Glucose Check, Bedside [RC] QIDACANDBED GLUCOSE POC LAB TO COLLECT JPM [POC] QIDACANDBED Metoprolol Tartrate [Lopressor] 12.5 mg PO BID 02/21/21 07:30 Insulin Glarg,Human.Rec.Analog [LantUS Solostar] 25 units SUBCUT ACBREAKFAST 02/21/21 08:06 Convert IV to Saline Lock [OM.PC] Routine 02/21/21 08:30 Bumetanide [Bumex] 2 mg IVPUSH Q12H 02/21/21 09:00 Losartan [Cozaar] 12.5 mg PO DAILY Magnesium Oxide 400 mg PO DAILY Nystatin [Nystop] 0 gm TOP TID traMADol [Ultram] 50 mg PO DAILY 02/21/21 12:00 atorvaSTATin [Lipitor] 20 mg PO DAILY@1200 02/22/21 05:00 BASIC METABOLIC PANEL,BMP [CHEM] Timed MAGNESIUM [CHEM] Timed - Plan Plan:: ASSESSMENT AND PLAN PROBABLE CONGESTIVE HEART FAILURE-recent progressive increase in peripheral edema and evidence of pulmonary edema noted on chest x-ray. Stable since admission -2 g sodium diet -IV Bumex 2 mg every 12 hours -Echocardiogram when available Tuesday or as outpatient CHRONIC KIDNEY DISEASE STAGE III -Closely monitor urine output and renal function TYPE 2 DIABETES MELLITUS -Continue outpatient medications and long-acting insulin -4 times daily glucometers -Low-dose sliding scale Humalog LACTIC ACIDOSIS-likely secondary to dehydration and has improved with IV fluids. No evidence of sepsis or significant infection thus far MAINTENANCE ISSUES -DVT prophylaxis; Lovenox 40 mg subcu daily -GI prophylaxis; not indicated -Langston catheter; not indicated -Nutrition; 2 g sodium diet -Nicotine dependence; not required CODE STATUS-FULL CODE ADMISSION STATUS-patient will be admitted to inpatient status, expect at least a 2 night hospital stay for evaluation and management of problems as outlined above. At the time of this admission I do not reasonably expected evaluation and management of this problem will require more than a 96 hour hospital stay. DISPOSITION-anticipate discharge to home after the hospital stay. PRIMARY CARE PROVIDER-Dr. Cabrera
[2021-02-21] MEDS ORDERED: Non-Formulary Medication 1 Each (Simvastatin [Simvastatin] 40 MG Tablet) PO SCH (11:00)
[2021-02-21] MEDS: atorvaSTATin 20 MG Tab PO SCH (11:23)
[2021-02-21] MEDS: Enoxaparin 30 MG/0.3 ML Syringe SUBCUT SCH (15:25)
[2021-02-22] MEDS: Insulin Lispro 100 Unit/ML 3 ML KwikPen SUBCUT SCH ×4 (07:57→21:11)
[2021-02-22] MEDS: Nystatin Topical Powder 15 GM Bottle TOP SCH ×3 (08:16→21:54)
[2021-02-22] MEDS: Magnesium Oxide 400 MG Tab PO SCH (08:17)
[2021-02-22] MEDS: Metoprolol Tartrate 25 MG Tab PO SCH ×2 (08:17→21:53)
[2021-02-22] MEDS: Losartan 25 MG Tab PO SCH (08:18)
[2021-02-22] MEDS: traMADol 50 MG Tab PO SCH (08:18)
[2021-02-22] MEDS: Bumetanide 2.5 MG/10 ML MDV IVPUSH SCH ×2 (08:19→21:52)
[2021-02-22] MEDS: Trolamine Salicylate/Aloe Vera 10% Crm 85 GM Tube TOP PRN (08:20)
[2021-02-22] MEDS: Insulin Glargine,Human Rec. Analog 100 Units/ML 3 ML Pen SUBCUT SCH (08:49)
[2021-02-22] MEDS: Acetaminophen 325 MG Tab PO PRN ×4 (09:11→23:54)
[2021-02-22] MEDS: atorvaSTATin 20 MG Tab PO SCH (11:34)
--- NOTE | 2021-02-22 13:00 | PCM.PN ---
- General Info Date of Service: 02/22/21 Subjective Update: Ms. Angulo is remained stable since yesterday. With current diuretic therapy there has been improvement in her peripheral edema. She remains very weak and requires assistance for transfers and ambulation. Because of generalized weakness she does not feel as though she be able to function safely at home and is requesting custodial placement. Functional Status: Reports: Tolerating Diet, Urinating - Review of Systems General: Reports: Weakness, Fatigue. Denies: Fever, Chills Pulmonary: Reports: Shortness of Breath. Denies: Pleuritic Chest Pain, Cough, Sputum, Hemoptysis, Wheezing Cardiovascular: Reports: Dyspnea on Exertion. Denies: Chest Pain, Palpitations, Orthopnea, PND, Edema, Lightheadedness Gastrointestinal: Reports: No Symptoms Genitourinary: Reports: No Symptoms - Patient Data Vitals - Most Recent: Last Vital Signs Temp 96.7 F L 02/22/21 11:41 Pulse 82 02/22/21 11:41 Resp 16 02/22/21 11:41 BP 101/51 L 02/22/21 11:41 Pulse Ox 94 L 02/22/21 11:41 Weight - Most Recent: 204 lb 15.773 oz I&O - Last 24 Hours: Intake & Output 02/21/21 02/22/21 02/22/21 22:59 06:59 14:59 Intake Total 120 120 Output Total 250 350 350 Balance -130 -350 -230 Lab Results Last 24 Hours: Laboratory Results - last 24 hr 02/21/21 02/22/21 Range/Units 13:35 04:10 Sodium 134 L (140-148) mmol/L Potassium 4.5 (3.6-5.2) mmol/L Chloride 102 (100-108) mmol/L Carbon Dioxide 20 L (21-32) mmol/L Anion Gap 16.5 H (5.0-14.0) mmol/L BUN 43 H (7-18) mg/dL Creatinine 1.4 H (0.6-1.0) mg/dL Est Cr Clr Drug Dosing 23.66 mL/min Estimated GFR (MDRD) 36 L (>60) Glucose 99 (74-106) mg/dL Calcium 8.4 L (8.5-10.1) mg/dL Magnesium 1.9 (1.8-2.4) mg/dL Urine Color Yellow (YELLOW) Urine Appearance Clear (CLEAR) Urine pH 5.0 (5.0-8.0) Ur Specific [place] 1.010 (1.008-1.030) Urine Protein Negative (NEGATIVE) mg/dL Urine Glucose (UA) Negative (NEGATIVE) mg/dL Urine Ketones Negative (NEGATIVE) mg/dL Urine Occult Blood Negative (NEGATIVE) Urine Nitrite Negative (NEGATIVE) Urine Bilirubin Negative (NEGATIVE) Urine Urobilinogen 0.2 (0.2-1.0) EU/dL Ur Leukocyte Esterase Trace H (NEGATIVE) Urine RBC 0-5 (0-5) Urine WBC 5-10 H (0-5) Ur Epithelial Cells Rare Amorphous Sediment Rare Urine Bacteria Not seen Urine Mucus Rare Med Orders - Current: Current Medications Acetaminophen (Acetaminophen 325 Mg Tab) 650 mg PO Q4H PRN PRN Reason: Pain (Mild 1-3)/fever Last Admin: 02/22/21 09:11 Dose: 650 mg Documented by: Albuterol (Albuterol 0.083% 2.5 Mg/3 Ml Neb Soln) 2.5 mg NEB Q4H PRN PRN Reason: Shortness Of Breath/wheezing Artificial Tears (Hypromellose 0.3% Ophth Soln 15 Ml Bottle) 0 ml EYEBOTH QID PRN PRN Reason: DRY EYES Atorvastatin Calcium (Atorvastatin 20 Mg Tab) 20 mg PO DAILY@1200 COUNTS INCLUDE 234 BEDS AT THE [facility] Last Admin: 02/22/21 11:34 Dose: 20 mg Documented by: Bumetanide (Bumetanide 2.5 Mg/10 Ml Mdv) 2 mg IVPUSH Q12H COUNTS INCLUDE 234 BEDS AT THE [facility] Last Admin: 02/22/21 08:19 Dose: 2 mg Documented by: Dextrose (Glucose Gel 15 Gm In 37.5 Gm Tube) 15 gm PO ONETIME PRN PRN Reason: Hypoglycemia Dextrose/Water (50% Dextrose In Water 50 Ml Syringe) 50 ml IV ONETIME PRN PRN Reason: Hypoglycemia Enoxaparin Sodium (Enoxaparin 30 Mg/0.3 Ml Syringe) 30 mg SUBCUT Q24H COUNTS INCLUDE 234 BEDS AT THE [facility] Last Admin: 02/21/21 15:25 Dose: 30 mg Documented by: Insulin Glargine (Insulin Glargine,Human Rec. Analog 100 Units/Ml 3 Ml Pen) 25 units SUBCUT ACBREAKFAST COUNTS INCLUDE 234 BEDS AT THE [facility] Last Admin: 02/22/21 08:49 Dose: 12 units Documented by: Insulin Human Lispro (Insulin Lispro 100 Unit/Ml 3 Ml Kwikpen) 0 unit SUBCUT QIDACANDBED COUNTS INCLUDE 234 BEDS AT THE [facility]; Protocol Last Admin: 02/22/21 11:32 Dose: Not Given Documented by: Losartan Potassium (Losartan 25 Mg Tab) 12.5 mg PO DAILY COUNTS INCLUDE 234 BEDS AT THE [facility] Last Admin: 02/22/21 08:18 Dose: 12.5 mg Documented by: Magnesium Oxide (Magnesium Oxide 400 Mg Tab) 400 mg PO DAILY COUNTS INCLUDE 234 BEDS AT THE [facility] Last Admin: 02/22/21 08:17 Dose: 400 mg Documented by: Metformin HCl (Metformin 500 Mg Tab) 500 mg PO BIDMEALS COUNTS INCLUDE 234 BEDS AT THE [facility] Last Admin: 02/21/21 08:32 Dose: 500 mg Documented by: Metoprolol Tartrate (Metoprolol Tartrate 25 Mg Tab) 12.5 mg PO BID COUNTS INCLUDE 234 BEDS AT THE [facility] Last Admin: 02/22/21 08:17 Dose: 12.5 mg Documented by: Nystatin (Nystatin Topical Powder 15 Gm Bottle) 0 gm TOP TID COUNTS INCLUDE 234 BEDS AT THE [facility] Last Admin: 02/22/21 08:16 Dose: 1 applic Documented by: Ondansetron HCl (Ondansetron 4 Mg/2 Ml Sdv) 4 mg IV Q4H PRN PRN Reason: Nausea/Vomiting Polyethylene Glycol (Polyethylene Glycol 3350 Powder 17 Gm Packet) 17 gm PO DAILY PRN PRN Reason: Constipation Sodium Chloride (Sodium Chloride 0.9% 10 Ml Syringe) 10 ml FLUSH ASDIRECTED PRN PRN Reason: Keep Vein Open Tramadol HCl (Tramadol 50 Mg Tab) 50 mg PO DAILY COUNTS INCLUDE 234 BEDS AT THE [facility] Last Admin: 02/22/21 08:18 Dose: 50 mg Documented by: Trolamine Salicylate (Trolamine Salicylate/Aloe Vera 10% Crm 85 Gm Tube) 0 gm TOP Q4H PRN PRN Reason: Pain Last Admin: 02/22/21 08:20 Dose: 1 applic Documented by: Discontinued Medications Bumetanide (Bumetanide 1 Mg/4 Ml Mdv) 2 mg IVPUSH ONETIME ONE Stop: 02/20/21 13:46 Last Admin: 02/20/21 14:58 Dose: 2 mg Documented by: Bumetanide (Bumetanide 1 Mg/4 Ml Mdv) Confirm Administered Dose 1 mg .ROUTE .STK-MED ONE Stop: 02/20/21 15:15 Last Admin: 02/20/21 16:23 Dose: Not Given Documented by: Sodium Chloride (Normal Saline) 1,000 mls @ 100 mls/hr IV ASDIRECTED COUNTS INCLUDE 234 BEDS AT THE [facility] Last Admin: 02/21/21 03:05 Dose: 100 mls/hr Documented by: Magnesium Oxide (Magnesium Oxide 400 Mg Tab) 400 mg PO BID COUNTS INCLUDE 234 BEDS AT THE [facility] Nystatin (Nystatin Topical Powder 15 Gm Bottle) 0 gm TOP TID COUNTS INCLUDE 234 BEDS AT THE [facility] Last Admin: 02/20/21 21:24 Dose: 1 dose Documented by: - Exam Quality Assessment: DVT Prophylaxis General: Alert, Oriented, Cooperative, Mild Distress Lungs: Clear to Auscultation, Normal Respiratory Effort, Decreased Breath Sounds Cardiovascular: Regular Rate, Regular Rhythm, No Murmurs GI/Abdominal Exam: Soft, Non-Tender, No Organomegaly, No Distention Extremities: Non-Tender, Pedal Edema Skin: Warm, Dry - Patient Data Lab Results Last 24 hrs: Laboratory Results - last 24 hr 02/21/21 02/22/21 Range/Units 13:35 04:10 Sodium 134 L (140-148) mmol/L Potassium 4.5 (3.6-5.2) mmol/L Chloride 102 (100-108) mmol/L Carbon Dioxide 20 L (21-32) mmol/L Anion Gap 16.5 H (5.0-14.0) mmol/L BUN 43 H (7-18) mg/dL Creatinine 1.4 H (0.6-1.0) mg/dL Est Cr Clr Drug Dosing 23.66 mL/min Estimated GFR (MDRD) 36 L (>60) Glucose 99 (74-106) mg/dL Calcium 8.4 L (8.5-10.1) mg/dL Magnesium 1.9 (1.8-2.4) mg/dL Urine Color Yellow (YELLOW) Urine Appearance Clear (CLEAR) Urine pH 5.0 (5.0-8.0) Ur Specific [place] 1.010 (1.008-1.030) Urine Protein Negative (NEGATIVE) mg/dL Urine Glucose (UA) Negative (NEGATIVE) mg/dL Urine Ketones Negative (NEGATIVE) mg/dL Urine Occult Blood Negative (NEGATIVE) Urine Nitrite Negative (NEGATIVE) Urine Bilirubin Negative (NEGATIVE) Urine Urobilinogen 0.2 (0.2-1.0) EU/dL Ur Leukocyte Esterase Trace H (NEGATIVE) Urine RBC 0-5 (0-5) Urine WBC 5-10 H (0-5) Ur Epithelial Cells Rare Amorphous Sediment Rare Urine Bacteria Not seen Urine Mucus Rare Result Diagrams: 02/20/21 13:40 02/22/21 04:10 Sepsis Event Note - Evaluation Sepsis Screening Result: No Definite Risk - Focused Exam Vital Signs: Vital Signs Temp Pulse Pulse Resp BP BP Pulse Ox 02/22/21 11:41 96.7 F L 82 16 101/51 L 94 L 02/22/21 08:18 141/69 H 02/22/21 08:17 92 141/69 H 02/22/21 08:08 97.3 F 92 16 141/69 H 93 L 02/22/21 03:00 97.6 F 76 16 119/60 95 - Problem List Review Problem List Initiated/Reviewed/Updated: Yes - My Orders Last 24 Hours: My Active Orders 02/21/21 12:00 atorvaSTATin [Lipitor] 20 mg PO DAILY@1200 02/23/21 05:00 BASIC METABOLIC PANEL,BMP [CHEM] Timed - Plan Plan:: ASSESSMENT AND PLAN PROBABLE CONGESTIVE HEART FAILURE-recent progressive increase in peripheral edema and evidence of pulmonary edema noted on chest x-ray. Stable since admission -2 g sodium diet -IV Bumex 2 mg every 12 hours -Echocardiogram tomorrow -Keep legs elevated -Torres wrap to both lower extremities CHRONIC KIDNEY DISEASE STAGE III -Closely monitor urine output and renal function TYPE 2 DIABETES MELLITUS -Continue outpatient medications and long-acting insulin -4 times daily glucometers -Low-dose sliding scale Humalog LACTIC ACIDOSIS-secondary to dehydration, resolved MAINTENANCE ISSUES -DVT prophylaxis; Lovenox 40 mg subcu daily -GI prophylaxis; not indicated -Langston catheter; not indicated -Nutrition; 2 g sodium diet -Nicotine dependence; not required CODE STATUS-FULL CODE ADMISSION STATUS-patient will be admitted to inpatient status, expect at least a 2 night hospital stay for evaluation and management of problems as outlined above. At the time of this admission I do not reasonably expected evaluation and management of this problem will require more than a 96 hour hospital stay. DISPOSITION-anticipate discharge to home after the hospital stay. PRIMARY CARE PROVIDER-Dr. Cabrera
[2021-02-22] MEDS: Enoxaparin 30 MG/0.3 ML Syringe SUBCUT SCH (15:26)
[2021-02-23] MEDS: Acetaminophen 325 MG Tab PO PRN ×2 (04:37→13:42)
[2021-02-23] MEDS: Insulin Lispro 100 Unit/ML 3 ML KwikPen SUBCUT SCH ×4 (09:05→19:47)
[2021-02-23] MEDS: Bumetanide 2.5 MG/10 ML MDV IVPUSH SCH ×2 (09:07→19:35)
[2021-02-23] MEDS: Metoprolol Tartrate 25 MG Tab PO SCH ×2 (09:07→21:13)
[2021-02-23] MEDS: Insulin Glargine,Human Rec. Analog 100 Units/ML 3 ML Pen SUBCUT SCH (09:08)
[2021-02-23] MEDS: Magnesium Oxide 400 MG Tab PO SCH (09:08)
[2021-02-23] MEDS: Losartan 25 MG Tab PO SCH (09:10)
[2021-02-23] MEDS: traMADol 50 MG Tab PO SCH (09:14)
[2021-02-23] MEDS: Nystatin Topical Powder 15 GM Bottle TOP SCH ×2 (13:38→21:12)
[2021-02-23] MEDS: Trolamine Salicylate/Aloe Vera 10% Crm 85 GM Tube TOP PRN ×2 (13:39→20:36)
[2021-02-23] MEDS: atorvaSTATin 20 MG Tab PO SCH (13:42)
[2021-02-23] MEDS: Enoxaparin 30 MG/0.3 ML Syringe SUBCUT SCH (15:44)
--- NOTE | 2021-02-23 15:57 | PCM.PN ---
- General Info Date of Service: 02/23/21 Subjective Update: There were no acute events overnight. Patient continues to feel mildly short of breath especially with activity. Her edema involving the legs below the knee moscoso s improved but she still has a fair amount of swelling involving the thigh areas. She has not had any fevers. She thinks her strength is a little bit better today. Kidney function is stable. - Patient Data Vitals - Most Recent: Last Vital Signs Temp 36.3 C 02/23/21 14:15 Pulse 45 L 02/23/21 14:15 Resp 18 02/23/21 14:15 BP 95/53 L 02/23/21 14:15 Pulse Ox 95 02/23/21 14:15 Weight - Most Recent: 92.6 kg I&O - Last 24 Hours: Intake & Output 02/23/21 02/23/21 02/23/21 06:59 14:59 22:59 Intake Total 240 350 Output Total 350 400 Balance -350 -160 350 Lab Results Last 24 Hours: Laboratory Results - last 24 hr 02/23/21 Range/Units 04:15 Sodium 135 L (140-148) mmol/L Potassium 4.5 (3.6-5.2) mmol/L Chloride 101 (100-108) mmol/L Carbon Dioxide 22 (21-32) mmol/L Anion Gap 16.5 H (5.0-14.0) mmol/L BUN 46 H (7-18) mg/dL Creatinine 1.4 H (0.6-1.0) mg/dL Est Cr Clr Drug Dosing 23.66 mL/min Estimated GFR (MDRD) 36 L (>60) Glucose 98 (74-106) mg/dL Calcium 8.5 (8.5-10.1) mg/dL Med Orders - Current: Current Medications Acetaminophen (Acetaminophen 325 Mg Tab) 650 mg PO Q4H PRN PRN Reason: Pain (Mild 1-3)/fever Last Admin: 02/23/21 13:42 Dose: 650 mg Documented by: Albuterol (Albuterol 0.083% 2.5 Mg/3 Ml Neb Soln) 2.5 mg NEB Q4H PRN PRN Reason: Shortness Of Breath/wheezing Artificial Tears (Hypromellose 0.3% Ophth Soln 15 Ml Bottle) 0 ml EYEBOTH QID PRN PRN Reason: DRY EYES Atorvastatin Calcium (Atorvastatin 20 Mg Tab) 20 mg PO DAILY@1200 [facility] Last Admin: 02/23/21 13:42 Dose: 20 mg Documented by: Bumetanide (Bumetanide 2.5 Mg/10 Ml Mdv) 2 mg IVPUSH Q12H [facility] Last Admin: 02/23/21 09:07 Dose: 2 mg Documented by: Dextrose (Glucose Gel 15 Gm In 37.5 Gm Tube) 15 gm PO ONETIME PRN PRN Reason: Hypoglycemia Dextrose/Water (50% Dextrose In Water 50 Ml Syringe) 50 ml IV ONETIME PRN PRN Reason: Hypoglycemia Enoxaparin Sodium (Enoxaparin 30 Mg/0.3 Ml Syringe) 30 mg SUBCUT Q24H [facility] Last Admin: 02/23/21 15:44 Dose: 30 mg Documented by: Insulin Glargine (Insulin Glargine,Human Rec. Analog 100 Units/Ml 3 Ml Pen) 25 units SUBCUT ACBREAKFAST [facility] Last Admin: 02/23/21 09:08 Dose: 25 units Documented by: Insulin Human Lispro (Insulin Lispro 100 Unit/Ml 3 Ml Kwikpen) 0 unit SUBCUT QIDACANDBED [facility]; Protocol Last Admin: 02/23/21 13:27 Dose: Not Given Documented by: Losartan Potassium (Losartan 25 Mg Tab) 12.5 mg PO DAILY [facility] Last Admin: 02/23/21 09:10 Dose: 12.5 mg Documented by: Magnesium Oxide (Magnesium Oxide 400 Mg Tab) 400 mg PO DAILY [facility] Last Admin: 02/23/21 09:08 Dose: 400 mg Documented by: Metformin HCl (Metformin 500 Mg Tab) 500 mg PO BIDMEALS [facility] Last Admin: 02/21/21 08:32 Dose: 500 mg Documented by: Metoprolol Tartrate (Metoprolol Tartrate 25 Mg Tab) 12.5 mg PO BID [facility] Last Admin: 02/23/21 09:07 Dose: 12.5 mg Documented by: Nystatin (Nystatin Topical Powder 15 Gm Bottle) 0 gm TOP TID [facility] Last Admin: 02/23/21 13:38 Dose: 1 applic Documented by: Ondansetron HCl (Ondansetron 4 Mg/2 Ml Sdv) 4 mg IV Q4H PRN PRN Reason: Nausea/Vomiting Polyethylene Glycol (Polyethylene Glycol 3350 Powder 17 Gm Packet) 17 gm PO DAILY PRN PRN Reason: Constipation Sodium Chloride (Sodium Chloride 0.9% 10 Ml Syringe) 10 ml FLUSH ASDIRECTED PRN PRN Reason: Keep Vein Open Spironolactone (Spironolactone 25 Mg Tab) 25 mg PO DAILY [facility] Spironolactone (Spironolactone 25 Mg Tab) 25 mg PO ONETIME ONE Stop: 02/23/21 20:01 Tramadol HCl (Tramadol 50 Mg Tab) 50 mg PO DAILY [facility] Last Admin: 02/23/21 09:14 Dose: 50 mg Documented by: Trolamine Salicylate (Trolamine Salicylate/Aloe Vera 10% Crm 85 Gm Tube) 0 gm TOP Q4H PRN PRN Reason: Pain Last Admin: 02/23/21 13:39 Dose: 1 applic Documented by: Discontinued Medications Bumetanide (Bumetanide 1 Mg/4 Ml Mdv) 2 mg IVPUSH ONETIME ONE Stop: 02/20/21 13:46 Last Admin: 02/20/21 14:58 Dose: 2 mg Documented by: Bumetanide (Bumetanide 1 Mg/4 Ml Mdv) Confirm Administered Dose 1 mg .ROUTE .STK-MED ONE Stop: 02/20/21 15:15 Last Admin: 02/20/21 16:23 Dose: Not Given Documented by: Sodium Chloride (Normal Saline) 1,000 mls @ 100 mls/hr IV ASDIRECTED [facility] Last Admin: 02/21/21 03:05 Dose: 100 mls/hr Documented by: Magnesium Oxide (Magnesium Oxide 400 Mg Tab) 400 mg PO BID [facility] Nystatin (Nystatin Topical Powder 15 Gm Bottle) 0 gm TOP TID [facility] Last Admin: 02/20/21 21:24 Dose: 1 dose Documented by: - Exam Quality Assessment: No: Supplemental Oxygen General: Alert, Oriented, Cooperative, No Acute Distress Neck: JVD Lungs: Normal Respiratory Effort, Decreased Breath Sounds (Mild both bases) Cardiovascular: Regular Rate, Regular Rhythm, No Murmurs. No: Gallops GI/Abdominal Exam: Soft, No Distention Extremities: Pedal Edema (Pitting edema which is mild to the knee and moderate from the knee to the proximal thigh). No: Increased Warmth Skin: Warm, Dry Psy/Mental Status: Alert, Normal Affect - Patient Data Lab Results Last 24 hrs: Laboratory Results - last 24 hr 02/23/21 Range/Units 04:15 Sodium 135 L (140-148) mmol/L Potassium 4.5 (3.6-5.2) mmol/L Chloride 101 (100-108) mmol/L Carbon Dioxide 22 (21-32) mmol/L Anion Gap 16.5 H (5.0-14.0) mmol/L BUN 46 H (7-18) mg/dL Creatinine 1.4 H (0.6-1.0) mg/dL Est Cr Clr Drug Dosing 23.66 mL/min Estimated GFR (MDRD) 36 L (>60) Glucose 98 (74-106) mg/dL Calcium 8.5 (8.5-10.1) mg/dL Result Diagrams: 02/20/21 13:40 02/23/21 04:15 Sepsis Event Note - Evaluation Sepsis Screening Result: No Definite Risk - Focused Exam Vital Signs: Vital Signs Temp Pulse Pulse Resp BP BP Pulse Ox 02/23/21 14:15 36.3 C 45 L 18 95/53 L 95 02/23/21 11:00 36.1 C 18 102/52 L 94 L 02/23/21 09:10 120/57 L 02/23/21 09:07 66 120/57 L 02/23/21 07:45 35.7 C L 66 20 120/57 L 95 - Problem List Review Problem List Initiated/Reviewed/Updated: Yes - My Orders Last 24 Hours: My Active Orders 02/23/21 20:00 Spironolactone [Aldactone] 25 mg PO ONETIME ONE 02/24/21 05:00 BASIC METABOLIC PANEL,BMP [CHEM] Timed 02/24/21 09:00 Spironolactone [Aldactone] 25 mg PO DAILY - Plan Plan:: ASSESSMENT AND PLAN HFpEF-Echo showed normal ejection fraction and no significant valve abnormalit ies. She does have elevated right-sided heart pressures which have increased compared to 2 years ago. Still has evidence for volume overload but is not hypoxic. -2 g sodium diet -IV Bumex 2 mg every 12 hours -Start spironolactone -Keep legs elevated -Torres wrap to both lower extremities Suspected pulmonary hypertension-significant elevation of pulmonary pressures. She would probably fit into the group 2 with heart failure and tricuspid regurgitation. -Management as above CHRONIC KIDNEY DISEASE STAGE III-kidney function stable with diuresis so far -Closely monitor urine output and renal function TYPE 2 DIABETES MELLITUS-sugars have been well controlled. -Continue outpatient medications and long-acting insulin -4 times daily glucometers -Low-dose sliding scale Humalog LACTIC ACIDOSIS-secondary to dehydration, resolved. MAINTENANCE ISSUES -DVT prophylaxis; enoxaparin -GI prophylaxis; not indicated -Langston catheter; not indicated -Nutrition; 2 g sodium diet DISPOSITION-anticipate discharge to home after the hospital stay. Edison Green MD
[2021-02-23] MEDS ORDERED: Spironolactone 25 MG Tab PO ONE (20:00)
[2021-02-24] MEDS: Insulin Lispro 100 Unit/ML 3 ML KwikPen SUBCUT SCH ×4 (07:39→21:07)
--- NOTE | 2021-02-24 08:05 | PCM.EKG ---
#1 Interpretation EKG Date: 02/20/21 Time: 13:32 Rhythm: NSR (with a few PAC's) Rate (Beats/Min): 82 [place]: RAD-Right [place]arrison Deviation P-Wave: Present QRS: Normal ST-T: Depressed (V2-V6, II) QT: Normal Comparison: NA - No Prior EKG
[2021-02-24] MEDS: Metoprolol Tartrate 25 MG Tab PO SCH ×2 (08:14→21:09)
[2021-02-24] MEDS: Losartan 25 MG Tab PO SCH (08:16)
[2021-02-24] MEDS: Nystatin Topical Powder 15 GM Bottle TOP SCH ×3 (08:17→21:09)
[2021-02-24] MEDS: Magnesium Oxide 400 MG Tab PO SCH (08:18)
[2021-02-24] MEDS: Bumetanide 2.5 MG/10 ML MDV IVPUSH SCH ×2 (08:19→11:23)
[2021-02-24] MEDS: traMADol 50 MG Tab PO SCH (08:24)
[2021-02-24] MEDS: Insulin Glargine,Human Rec. Analog 100 Units/ML 3 ML Pen SUBCUT SCH (08:34)
[2021-02-24] MEDS ORDERED: Spironolactone 25 MG Tab PO SCH ×2 (09:00→21:00)
--- NOTE | 2021-02-24 09:21 | PCM.PN ---
- General Info Date of Service: 02/24/21 Subjective Update: No acute events overnight. She did have mild bradycardia while she was sleeping. She reports that she slept okay. She feels tired and weak but otherwise okay. No dyspnea at rest but short of breath with any activity. No chest pain. Decent response to diuresis with slow improvement in her edema. Kidney function is stable. Blood pressures have been good. Blood sugars have been excellent. - Review of Systems General: Reports: Weakness Cardiovascular: Reports: Dyspnea on Exertion, Edema - Patient Data Vitals - Most Recent: Last Vital Signs Temp 36.2 C 02/24/21 07:00 Pulse 107 H 02/24/21 08:14 Resp 18 02/24/21 07:00 BP 117/55 L 02/24/21 08:16 Pulse Ox 90 L 02/24/21 07:00 Weight - Most Recent: 92.6 kg I&O - Last 24 Hours: Intake & Output 02/23/21 02/24/21 02/24/21 22:59 06:59 14:59 Intake Total 650 420 Output Total 450 350 Balance 200 70 Lab Results Last 24 Hours: Laboratory Results - last 24 hr 02/24/21 Range/Units 05:45 Sodium 135 L (140-148) mmol/L Potassium 4.5 (3.6-5.2) mmol/L Chloride 101 (100-108) mmol/L Carbon Dioxide 22 (21-32) mmol/L Anion Gap 16.5 H (5.0-14.0) mmol/L BUN 48 H (7-18) mg/dL Creatinine 1.5 H (0.6-1.0) mg/dL Est Cr Clr Drug Dosing 21.89 mL/min Estimated GFR (MDRD) 33 L (>60) Glucose 116 H (74-106) mg/dL Calcium 8.6 (8.5-10.1) mg/dL Med Orders - Current: Current Medications Acetaminophen (Acetaminophen 325 Mg Tab) 650 mg PO Q4H PRN PRN Reason: Pain (Mild 1-3)/fever Last Admin: 02/23/21 13:42 Dose: 650 mg Documented by: Albuterol (Albuterol 0.083% 2.5 Mg/3 Ml Neb Soln) 2.5 mg NEB Q4H PRN PRN Reason: Shortness Of Breath/wheezing Artificial Tears (Hypromellose 0.3% Ophth Soln 15 Ml Bottle) 0 ml EYEBOTH QID PRN PRN Reason: DRY EYES Atorvastatin Calcium (Atorvastatin 20 Mg Tab) 20 mg PO DAILY@1200 [facility] Last Admin: 02/23/21 13:42 Dose: 20 mg Documented by: Bumetanide (Bumetanide 1 Mg Tab) 2 mg PO Q12H [facility] Dextrose (Glucose Gel 15 Gm In 37.5 Gm Tube) 15 gm PO ONETIME PRN PRN Reason: Hypoglycemia Dextrose/Water (50% Dextrose In Water 50 Ml Syringe) 50 ml IV ONETIME PRN PRN Reason: Hypoglycemia Enoxaparin Sodium (Enoxaparin 30 Mg/0.3 Ml Syringe) 30 mg SUBCUT Q24H [facility] Last Admin: 02/23/21 15:44 Dose: 30 mg Documented by: Insulin Glargine (Insulin Glargine,Human Rec. Analog 100 Units/Ml 3 Ml Pen) 25 units SUBCUT ACBREAKFAST [facility] Last Admin: 02/24/21 08:34 Dose: 25 units Documented by: Insulin Human Lispro (Insulin Lispro 100 Unit/Ml 3 Ml Kwikpen) 0 unit SUBCUT QIDACANDBED [facility]; Protocol Last Admin: 02/24/21 07:39 Dose: Not Given Documented by: Losartan Potassium (Losartan 25 Mg Tab) 12.5 mg PO DAILY [facility] Last Admin: 02/24/21 08:16 Dose: 12.5 mg Documented by: Magnesium Oxide (Magnesium Oxide 400 Mg Tab) 400 mg PO DAILY [facility] Last Admin: 02/24/21 08:18 Dose: 400 mg Documented by: Metformin HCl (Metformin 500 Mg Tab) 500 mg PO BIDMEALS [facility] Last Admin: 02/21/21 08:32 Dose: 500 mg Documented by: Metoprolol Tartrate (Metoprolol Tartrate 25 Mg Tab) 12.5 mg PO BID [facility] Last Admin: 02/24/21 08:14 Dose: 12.5 mg Documented by: Nystatin (Nystatin Topical Powder 15 Gm Bottle) 0 gm TOP TID [facility] Last Admin: 02/24/21 08:17 Dose: 1 applic Documented by: Ondansetron HCl (Ondansetron 4 Mg/2 Ml Sdv) 4 mg IV Q4H PRN PRN Reason: Nausea/Vomiting Polyethylene Glycol (Polyethylene Glycol 3350 Powder 17 Gm Packet) 17 gm PO DAILY PRN PRN Reason: Constipation Sodium Chloride (Sodium Chloride 0.9% 10 Ml Syringe) 10 ml FLUSH ASDIRECTED PRN PRN Reason: Keep Vein Open Spironolactone (Spironolactone 25 Mg Tab) 25 mg PO BID [facility] Tramadol HCl (Tramadol 50 Mg Tab) 50 mg PO DAILY [facility] Last Admin: 02/24/21 08:24 Dose: 50 mg Documented by: Trolamine Salicylate (Trolamine Salicylate/Aloe Vera 10% Crm 85 Gm Tube) 0 gm TOP Q4H PRN PRN Reason: Pain Last Admin: 02/23/21 20:36 Dose: 1 applic Documented by: Discontinued Medications Bumetanide (Bumetanide 1 Mg/4 Ml Mdv) 2 mg IVPUSH ONETIME ONE Stop: 02/20/21 13:46 Last Admin: 02/20/21 14:58 Dose: 2 mg Documented by: Bumetanide (Bumetanide 1 Mg/4 Ml Mdv) Confirm Administered Dose 1 mg .ROUTE .STK-MED ONE Stop: 02/20/21 15:15 Last Admin: 02/20/21 16:23 Dose: Not Given Documented by: Bumetanide (Bumetanide 2.5 Mg/10 Ml Mdv) 2 mg IVPUSH Q12H [facility] Last Admin: 02/23/21 19:35 Dose: 2 mg Documented by: Sodium Chloride (Normal Saline) 1,000 mls @ 100 mls/hr IV ASDIRECTED [facility] Last Admin: 02/21/21 03:05 Dose: 100 mls/hr Documented by: Magnesium Oxide (Magnesium Oxide 400 Mg Tab) 400 mg PO BID [facility] Nystatin (Nystatin Topical Powder 15 Gm Bottle) 0 gm TOP TID [facility] Last Admin: 02/20/21 21:24 Dose: 1 dose Documented by: Spironolactone (Spironolactone 25 Mg Tab) 25 mg PO DAILY [facility] Last Admin: 02/24/21 08:14 Dose: 25 mg Documented by: Spironolactone (Spironolactone 25 Mg Tab) 25 mg PO ONETIME ONE Stop: 02/23/21 20:01 Last Admin: 02/23/21 19:34 Dose: 25 mg Documented by: - Exam Quality Assessment: No: Supplemental Oxygen General: Alert, Oriented, Cooperative, No Acute Distress Neck: JVD Lungs: Normal Respiratory Effort, Crackles (both bases) Cardiovascular: Regular Rate, Regular Rhythm, No Murmurs Extremities: Pedal Edema (pitting edema to the waist bilaterally ). No: I ncreased Warmth Skin: Warm, Dry Psy/Mental Status: Alert, Normal Affect - Patient Data Lab Results Last 24 hrs: Laboratory Results - last 24 hr 02/24/21 Range/Units 05:45 Sodium 135 L (140-148) mmol/L Potassium 4.5 (3.6-5.2) mmol/L Chloride 101 (100-108) mmol/L Carbon Dioxide 22 (21-32) mmol/L Anion Gap 16.5 H (5.0-14.0) mmol/L BUN 48 H (7-18) mg/dL Creatinine 1.5 H (0.6-1.0) mg/dL Est Cr Clr Drug Dosing 21.89 mL/min Estimated GFR (MDRD) 33 L (>60) Glucose 116 H (74-106) mg/dL Calcium 8.6 (8.5-10.1) mg/dL Result Diagrams: 02/20/21 13:40 02/24/21 05:45 Sepsis Event Note - Evaluation Sepsis Screening Result: No Definite Risk - Focused Exam Vital Signs: Vital Signs Temp Pulse Pulse Resp BP BP Pulse Ox 02/24/21 08:16 117/55 L 02/24/21 08:14 107 H 117/55 L 02/24/21 07:00 36.2 C 55 L 18 117/55 L 90 L 02/24/21 03:00 36.9 C 76 16 115/62 94 L - Problem List Review Problem List Initiated/Reviewed/Updated: Yes - My Orders Last 24 Hours: My Active Orders 02/24/21 09:19 Discontinue Telemetry Monitoring [Cardiac Monitoring Discontinue] [RC] Click to Edit 02/24/21 09:30 Bumetanide [Bumex] 2 mg PO Q12H 02/24/21 21:00 Spironolactone [Aldactone] 25 mg PO BID 02/25/21 05:00 BASIC METABOLIC PANEL,BMP [CHEM] Timed - Plan Plan:: ASSESSMENT AND PLAN HFpEF-Echo showed normal ejection fraction and significant diastolic dysfunction. She also has severe tricuspid regurgitation. She does have elevated right-sided heart pressures which have increased compared to 2 years ago. Still has evidence for volume overload. Had a long discussion today with the patient and her about difficulty treating this type of heart failure along with pulmonary hypertension -2 g sodium diet -Bumex 2 mg every 12 hours -spironolactone twice daily -Keep legs elevated -Torres wrap to both lower extremities Pulmonary hypertension-significant elevation of pulmonary pressures. Probably secondary to combination of diastolic heart failure and previous coronary artery disease. She would probably fit into the group 2 with heart failure and tricuspid regurgitation. -Management as above CHRONIC KIDNEY DISEASE STAGE III-kidney function stable with diuresis so far -Closely monitor urine output and renal function TYPE 2 DIABETES MELLITUS-sugars have been well controlled. -Continue outpatient medications and long-acting insulin -4 times daily glucometers -Low-dose sliding scale Humalog LACTIC ACIDOSIS-secondary to dehydration, resolved. MAINTENANCE ISSUES -DVT prophylaxis; enoxaparin -GI prophylaxis; not indicated -Langston catheter; not indicated -Nutrition; 2 g sodium diet DISPOSITION-anticipate discharge to the care home after the hospital stay. Edison Green MD
[2021-02-24] MEDS: Bumetanide 1 MG Tab PO SCH ×2 (10:26→21:13)
[2021-02-24] MEDS: Acetaminophen 325 MG Tab PO PRN (10:55)
[2021-02-24] MEDS: Trolamine Salicylate/Aloe Vera 10% Crm 85 GM Tube TOP PRN (12:09)
[2021-02-24] MEDS: atorvaSTATin 20 MG Tab PO SCH (12:12)
[2021-02-24] MEDS: Enoxaparin 30 MG/0.3 ML Syringe SUBCUT SCH (14:45)
[2021-02-25] MEDS: Acetaminophen 325 MG Tab PO PRN ×3 (02:32→13:30)
[2021-02-25] MEDS: Trolamine Salicylate/Aloe Vera 10% Crm 85 GM Tube TOP PRN (08:15)
[2021-02-25] MEDS: Insulin Glargine,Human Rec. Analog 100 Units/ML 3 ML Pen SUBCUT SCH ×2 (08:15→09:25)
[2021-02-25] MEDS: Insulin Lispro 100 Unit/ML 3 ML KwikPen SUBCUT SCH ×4 (08:16→20:33)
[2021-02-25] MEDS: Magnesium Oxide 400 MG Tab PO SCH (09:20)
[2021-02-25] MEDS: Bumetanide 1 MG Tab PO SCH (09:21)
[2021-02-25] MEDS: traMADol 50 MG Tab PO SCH (09:23)
[2021-02-25] MEDS: Nystatin Topical Powder 15 GM Bottle TOP SCH ×4 (09:24→20:45)
[2021-02-25] MEDS: Losartan 25 MG Tab PO SCH (10:33)
[2021-02-25] MEDS: Metoprolol Tartrate 25 MG Tab PO SCH (10:34)
[2021-02-25] MEDS: Spironolactone 25 MG Tab PO SCH (11:03)
[2021-02-25] MEDS: Metoprolol Succinate 25 MG Tab.ER PO SCH (11:06)
--- NOTE | 2021-02-25 12:35 | PCM.PN ---
- General Info Date of Service: 02/25/21 Subjective Update: There were no acute events overnight. Patient thinks that she slept fairly well. Still feels weak. Still gets short of breath with any activity but comfortable at rest. She thinks her legs are less swollen today. Still feels weak and fatigued. She was able to get out of bed and take a few short steps on her own today. Creatinine slightly higher today. Blood pressure on the low side of normal. Functional Status: Reports: Pain Controlled, Tolerating Diet - Review of Systems General: Reports: Weakness Cardiovascular: Reports: Edema - Patient Data Vitals - Most Recent: Last Vital Signs Temp 36.1 C 02/25/21 07:02 Pulse 60 02/25/21 11:08 Resp 16 02/25/21 11:08 BP 111/43 L 02/25/21 11:08 Pulse Ox 94 L 02/25/21 11:08 Weight - Most Recent: 92.3 kg I&O - Last 24 Hours: Intake & Output 02/24/21 02/25/21 02/25/21 22:59 06:59 14:59 Intake Total 240 420 Output Total 300 225 650 Balance -60 -225 -230 Lab Results Last 24 Hours: Laboratory Results - last 24 hr 02/25/21 Range/Units 04:25 Sodium 136 L (140-148) mmol/L Potassium 4.6 (3.6-5.2) mmol/L Chloride 102 (100-108) mmol/L Carbon Dioxide 20 L (21-32) mmol/L Anion Gap 18.6 H (5.0-14.0) mmol/L BUN 50 H (7-18) mg/dL Creatinine 1.7 H (0.6-1.0) mg/dL Est Cr Clr Drug Dosing 19.31 mL/min Estimated GFR (MDRD) 29 L (>60) Glucose 79 (74-106) mg/dL Calcium 8.5 (8.5-10.1) mg/dL Med Orders - Current: Current Medications Acetaminophen (Acetaminophen 325 Mg Tab) 650 mg PO Q4H PRN PRN Reason: Pain (Mild 1-3)/fever Last Admin: 02/25/21 06:33 Dose: 650 mg Documented by: Albuterol (Albuterol 0.083% 2.5 Mg/3 Ml Neb Soln) 2.5 mg NEB Q4H PRN PRN Reason: Shortness Of Breath/wheezing Artificial Tears (Hypromellose 0.3% Ophth Soln 15 Ml Bottle) 0 ml EYEBOTH QID PRN PRN Reason: DRY EYES Atorvastatin Calcium (Atorvastatin 20 Mg Tab) 20 mg PO DAILY@1200 [facility] Last Admin: 02/24/21 12:12 Dose: 20 mg Documented by: Bumetanide (Bumetanide 1 Mg Tab) 2 mg PO DAILY [facility] Last Admin: 02/25/21 09:21 Dose: 2 mg Documented by: Dextrose (Glucose Gel 15 Gm In 37.5 Gm Tube) 15 gm PO ONETIME PRN PRN Reason: Hypoglycemia Dextrose/Water (50% Dextrose In Water 50 Ml Syringe) 50 ml IV ONETIME PRN PRN Reason: Hypoglycemia Enoxaparin Sodium (Enoxaparin 30 Mg/0.3 Ml Syringe) 30 mg SUBCUT Q24H [facility] Last Admin: 02/24/21 14:45 Dose: 30 mg Documented by: Insulin Glargine (Insulin Glargine,Human Rec. Analog 100 Units/Ml 3 Ml Pen) 20 units SUBCUT DAILY [facility] Last Admin: 02/25/21 09:25 Dose: 20 units Documented by: Insulin Human Lispro (Insulin Lispro 100 Unit/Ml 3 Ml Kwikpen) 0 unit SUBCUT QIDACANDBED [facility]; Protocol Last Admin: 02/25/21 11:37 Dose: Not Given Documented by: Losartan Potassium (Losartan 25 Mg Tab) 12.5 mg PO DAILY [facility] Last Admin: 02/25/21 10:33 Dose: Not Given Documented by: Magnesium Oxide (Magnesium Oxide 400 Mg Tab) 400 mg PO DAILY [facility] Last Admin: 02/25/21 09:20 Dose: 400 mg Documented by: Metoprolol Succinate (Metoprolol Succinate 25 Mg Tab.Er) 12.5 mg PO DAILY [facility] Last Admin: 02/25/21 11:06 Dose: 12.5 mg Documented by: Nystatin (Nystatin Topical Powder 15 Gm Bottle) 0 gm TOP TID [facility] Last Admin: 02/25/21 09:24 Dose: 1 applic Documented by: Ondansetron HCl (Ondansetron 4 Mg/2 Ml Sdv) 4 mg IV Q4H PRN PRN Reason: Nausea/Vomiting Polyethylene Glycol (Polyethylene Glycol 3350 Powder 17 Gm Packet) 17 gm PO DAILY PRN PRN Reason: Constipation Last Admin: 02/24/21 10:27 Dose: 17 gm Documented by: Sodium Chloride (Sodium Chloride 0.9% 10 Ml Syringe) 10 ml FLUSH ASDIRECTED PRN PRN Reason: Keep Vein Open Spironolactone (Spironolactone 25 Mg Tab) 25 mg PO DAILY [facility] Last Admin: 02/25/21 11:03 Dose: 25 mg Documented by: Tramadol HCl (Tramadol 50 Mg Tab) 50 mg PO DAILY [facility] Last Admin: 02/25/21 09:23 Dose: 50 mg Documented by: Trolamine Salicylate (Trolamine Salicylate/Aloe Vera 10% Crm 85 Gm Tube) 0 gm TOP Q4H PRN PRN Reason: Pain Last Admin: 02/25/21 08:15 Dose: 1 applic Documented by: Discontinued Medications Bumetanide (Bumetanide 1 Mg/4 Ml Mdv) 2 mg IVPUSH ONETIME ONE Stop: 02/20/21 13:46 Last Admin: 02/20/21 14:58 Dose: 2 mg Documented by: Bumetanide (Bumetanide 1 Mg/4 Ml Mdv) Confirm Administered Dose 1 mg .ROUTE .STK-MED ONE Stop: 02/20/21 15:15 Last Admin: 02/20/21 16:23 Dose: Not Given Documented by: Bumetanide (Bumetanide 2.5 Mg/10 Ml Mdv) 2 mg IVPUSH Q12H [facility] Last Admin: 02/24/21 11:23 Dose: Not Given Documented by: Bumetanide (Bumetanide 1 Mg Tab) 2 mg PO Q12H [facility] Last Admin: 02/24/21 21:13 Dose: 2 mg Documented by: Sodium Chloride (Normal Saline) 1,000 mls @ 100 mls/hr IV ASDIRECTED [facility] Last Admin: 02/21/21 03:05 Dose: 100 mls/hr Documented by: Insulin Glargine (Insulin Glargine,Human Rec. Analog 100 Units/Ml 3 Ml Pen) 25 units SUBCUT ACBREAKFAST [facility] Last Admin: 02/25/21 08:15 Dose: Not Given Documented by: Magnesium Oxide (Magnesium Oxide 400 Mg Tab) 400 mg PO BID [facility] Metformin HCl (Metformin 500 Mg Tab) 500 mg PO BIDMEALS [facility] Last Admin: 02/21/21 08:32 Dose: 500 mg Documented by: Metoprolol Tartrate (Metoprolol Tartrate 25 Mg Tab) 12.5 mg PO BID [facility] Last Admin: 02/25/21 10:34 Dose: Not Given Documented by: Nystatin (Nystatin Topical Powder 15 Gm Bottle) 0 gm TOP TID [facility] Last Admin: 02/20/21 21:24 Dose: 1 dose Documented by: Spironolactone (Spironolactone 25 Mg Tab) 25 mg PO DAILY [facility] Last Admin: 02/24/21 08:14 Dose: 25 mg Documented by: Spironolactone (Spironolactone 25 Mg Tab) 25 mg PO ONETIME ONE Stop: 02/23/21 20:01 Last Admin: 02/23/21 19:34 Dose: 25 mg Documented by: Spironolactone (Spironolactone 25 Mg Tab) 25 mg PO BID [facility] Last Admin: 02/24/21 21:08 Dose: 25 mg Documented by: - Exam Quality Assessment: No: Supplemental Oxygen General: Alert, Oriented, Cooperative, No Acute Distress Lungs: Normal Respiratory Effort, Crackles (rare both bases) Cardiovascular: Regular Rate, Regular Rhythm, No Murmurs GI/Abdominal Exam: Soft, No Distention Extremities: Pedal Edema. No: Increased Warmth Skin: Warm, Dry Psy/Mental Status: Alert, Normal Affect - Patient Data Lab Results Last 24 hrs: Laboratory Results - last 24 hr 02/25/21 Range/Units 04:25 Sodium 136 L (140-148) mmol/L Potassium 4.6 (3.6-5.2) mmol/L Chloride 102 (100-108) mmol/L Carbon Dioxide 20 L (21-32) mmol/L Anion Gap 18.6 H (5.0-14.0) mmol/L BUN 50 H (7-18) mg/dL Creatinine 1.7 H (0.6-1.0) mg/dL Est Cr Clr Drug Dosing 19.31 mL/min Estimated GFR (MDRD) 29 L (>60) Glucose 79 (74-106) mg/dL Calcium 8.5 (8.5-10.1) mg/dL Result Diagrams: 02/20/21 13:40 02/25/21 04:25 Sepsis Event Note - Evaluation Sepsis Screening Result: No Definite Risk - Focused Exam Vital Signs: Vital Signs Temp Pulse Pulse Resp BP BP Pulse Ox 02/25/21 11:08 60 16 111/43 L 94 L 02/25/21 11:06 60 111/43 L 02/25/21 09:29 54 L 97/72 02/25/21 07:02 36.1 C 88 20 118/46 L 96 02/25/21 02:55 36.0 C L 67 16 111/56 L 92 L - Problem List Review Problem List Initiated/Reviewed/Updated: Yes - My Orders Last 24 Hours: My Active Orders 02/25/21 09:00 Bumetanide [Bumex] 2 mg PO DAILY Insulin Glarg,Human.Rec.Analog [LantUS Solostar] 20 units SUBCUT DAILY Spironolactone [Aldactone] 25 mg PO DAILY 02/25/21 10:15 Metoprolol Succinate [Toprol XL] 12.5 mg PO DAILY 02/26/21 05:00 BASIC METABOLIC PANEL,BMP [CHEM] Timed - Plan Plan:: ASSESSMENT AND PLAN HFpEF-Echo showed normal ejection fraction and significant diastolic dysfunction. She also has severe tricuspid regurgitation. She does have elevated right-sided heart pressures which have increased compared to 2 years ago. Evidence for volume overload has improved. Creatinine slightly higher and blood pressures are on the low side of normal so I think we have reached the end of our diuresis -Medical management including beta-aliya -Hold ARB because of hypotension -2 g sodium diet -Bumex 2 mg daily -spironolactone daily -Keep legs elevated -Torres wrap to both lower extremities Pulmonary hypertension-significant elevation of pulmonary pressures. Probably secondary to combination of diastolic heart failure and previous coronary artery disease. She would probably fit into the group 2 with heart failure and tricuspid regurgitation. -Management as above CHRONIC KIDNEY DISEASE STAGE III-kidney function down slightly today with diuresis yesterday. -Decrease frequency of diuretics today -Closely monitor urine output and renal function TYPE 2 DIABETES MELLITUS-sugars have been well controlled though were slightly on the low side today. -Decrease long-acting insulin to 20 units -4 times daily glucometers -Low-dose sliding scale Humalog LACTIC ACIDOSIS-secondary to dehydration, resolved. MAINTENANCE ISSUES -DVT prophylaxis; enoxaparin -GI prophylaxis; not indicated -Langston catheter; not indicated -Nutrition; 2 g sodium diet DISPOSITION-anticipate discharge to the detention after the hospital stay, likely tomorrow if stable overnight Edison Green MD
[2021-02-25] MEDS: atorvaSTATin 20 MG Tab PO SCH (12:36)
[2021-02-25] MEDS: Enoxaparin 30 MG/0.3 ML Syringe SUBCUT SCH (15:18)
[2021-02-26] MEDS: Acetaminophen 325 MG Tab PO PRN ×2 (06:46→12:09)
[2021-02-26] MEDS: Insulin Lispro 100 Unit/ML 3 ML KwikPen SUBCUT SCH ×2 (08:45→11:58)
[2021-02-26] MEDS: Bumetanide 1 MG Tab PO SCH (08:46)
[2021-02-26] MEDS: Nystatin Topical Powder 15 GM Bottle TOP SCH (08:47)
[2021-02-26] MEDS: Metoprolol Succinate 25 MG Tab.ER PO SCH (08:47)
[2021-02-26] MEDS: Spironolactone 25 MG Tab PO SCH (08:48)
[2021-02-26] MEDS: Magnesium Oxide 400 MG Tab PO SCH (08:48)
[2021-02-26] MEDS: traMADol 50 MG Tab PO SCH (08:51)
[2021-02-26] MEDS ORDERED: Insulin Glargine,Human Rec. Analog 100 Units/ML 3 ML Pen SUBCUT SCH ×2 (10:15→10:45)
[2021-02-26 11:03] VITALS: BP 109/73; PULSE 69
[2021-02-26] MEDS: Insulin Glargine,Human Rec. Analog 100 Units/ML 3 ML Pen SUBCUT SCH (11:04)
--- NOTE | 2021-02-26 11:05 | PCM.DCSUM1 ---
Discharge Summary - Hospital Course Brief History: 86-year-old female with history of heart failure with preserved ejection fraction pulmonary hypertension, obesity, stage IIIb chronic kidney disease who presented with a 20 pound weight gain and evidence for congestive heart failure despite recent adjustments in her diuretics. She was directly admitted from the clinic for management of her congestive heart failure. Diagnosis: Stroke: No - Discharge Data Discharge Date: 02/26/21 Discharge Disposition: DC/Tfer to SNF 03 Condition: Fair - Referral to Home Health Primary Care Physician: PCP None - Discharge Diagnosis/Problem(s) (1) (HFpEF) heart failure with preserved ejection fraction SNOMED Code(s): 625173497 ICD Code: I50.30 - UNSPECIFIED DIASTOLIC (CONGESTIVE) HEART FAILURE Status: Acute Qualifiers: Heart failure chronicity: acute on chronic Qualified Code(s): I50.33 - Acute on chronic diastolic (congestive) heart failure (2) Pulmonary hypertension SNOMED Code(s): 68089156 ICD Code: I27.20 - PULMONARY HYPERTENSION, UNSPECIFIED Status: Chronic (3) Type 2 diabetes mellitus SNOMED Code(s): 29982700 ICD Code: E11.9 - TYPE 2 DIABETES MELLITUS WITHOUT COMPLICATIONS Status: Chronic Qualifiers: Diabetes mellitus assisted insulin use: with watermaster use Diabetes mellitus complication status: with other specified complication Qualified Code(s): E11.69 - Type 2 diabetes mellitus with other specified complication; Z79.4 - salvage determiner (current) use of insulin (4) CKD (chronic kidney disease) SNOMED Code(s): 047694577 ICD Code: N18.9 - CHRONIC KIDNEY DISEASE, UNSPECIFIED Status: Chronic Qualifiers: Chronic kidney disease stage: stage 3 (moderate) Chronic kidney disease stage 3 subtype: stage 3b (GFR 30-44) Qualified Code(s): N18.32 - Chronic kidney disease, stage 3b (5) CAD (coronary artery disease) SNOMED Code(s): 77679132 ICD Code: I25.10 - ATHSCL HEART DISEASE OF [place] CORONARY ARTERY W/O ANG PCTRS Status: Chronic Qualifiers: Coronary Disease-Associated Artery/Lesion type: [place] artery [place] vs. transplanted heart: [place] heart Associated angina: without angina Qualified Code(s): I25.10 - Atherosclerotic heart disease of [place] coronary artery without angina pectoris - Patient Summary/Data Consults: Consultations 02/20/21 13:01 PT Evaluation and Treatment [CONS] Routine Please Evaluate and Treat. PT Reason for Consult: Weakness This query below is only for informational purposes and is not editable. Hospital Course: Reinaldo presented to the clinic with a 20 pound weight gain and progressive lower extremity edema despite recent adjustments in her diuretics. Work-up in the clinic suggested congestive heart failure with some pulmonary edema noted on the chest x-ray and significant edema noted on examination. She was sent to the hospital for direct admission. At the time of admission her creatinine was note d to be 1.7 with a baseline of about 1.5. Her lactic acid initially was mildly elevated so some gentle IV fluids were given overnight before diuresis started the next day. A right-sided/diastolic congestive heart failure type picture was suspected given the massive edema but no significant hypoxia. The next morning her lactic acid level had improved so diuresis was initiated with bumetanide given every 12 hours. Over the next several days there was a slow but steady improvement in her lower extremity edema. We did also utilize Torres wraps for the lower extremity on both legs. We did perform an echocardiogram and compared it to the one from 2 years ago. This showed a normal ejection fraction but did show severe tricuspid regurgitation as well as significant elevation of her pulmonary pressures. She also had grade 3 diastolic dysfunction. We continued diuresis until her creatinine elo to 1.7. At this point we backed off to once a day. Her edema has improved quite a bit but she does still have some lower extremity edema. According to the Daily weights we have not made much progress but based on examination we have made quite a bit of progress with her edema and fluid management. I did talk to both the patient and her about the challenges of treating heart failure with preserved ejection fraction especially with pulmonary hypertension and the tricuspid regurgitation. We are currently utilizing bumetanide and spironolactone for diuretics. She is on a beta- aliya. The compression of the legs to improve the edema is also an extremely important part of the process. There is not a great fix for the problem and this concern was relayed to the patient and her as well. She is making some strides as far as her strength but remains fairly weak and can ambulate only minimally. She would benefit from subacute rehab prior to going home if she is able to make that much of an improvement. She is stable and safe for discharge to the long term at this time. We will continue the once daily diuresis as well as probably more importantly the lower extremity wrapping to improve her edema further. The plan is to recheck some labs early next week to make sure her kidney function remained stable. Also encountered during the hospital stay was some yeast dermatitis under the skin folds and this has been treated with nystatin. We did decrease her insulin slightly during the hospital stay as well. Kidney function was stable with a creatinine of 1.5 at the time of discharge. - Patient Instructions Diet: Diabetic Diet Activity: As Tolerated Showering/Bathing: May Shower Other/Special Instructions: 1. You were in the hospital for management of acute on chronic congestive heart failure with preserved ejection fraction complicated by pulmonary hypertension. Your condition has been improving with diuretic therapy provided in the hospital. I do recommend some changes to your diuretics including change from furosemide to bumetanide as well as the addition of spironolactone. We did change the dosing and formulation of your beta-aliya to help better manage her heart failure as well. 2. I have placed a referral to physical therapy and Occupational Therapy. They will provide services during your stay at the transitional care unit. 3. Code status - FULL CODE. 4. Please check a BMP on 03/02 or 03/03 depending on phlebotomy schedule. Diagnosis stage III chronic kidney disease. 5. Each morning please wrap the patient's feet, lower legs and thighs with Torres wraps to a moderate level of compression. The wraps may be removed in the evening. 6. Please perform Accu-Cheks 4 times daily and with meals either with finger poke or patient's Mojgan device. - Discharge Plan *PRESCRIPTION DRUG MONITORING PROGRAM REVIEWED*: Not Applicable *COPY OF PRESCRIPTION DRUG MONITORING REPORT IN PATIENT CHAS: Not Applicable Prescriptions/Med Rec: Spironolactone [Aldactone] 25 mg PO DAILY #30 tablet Insulin Detemir [Levemir Flextouch] 18 units SQ ACBREAKFAST #3 pen Nystatin 1 gm TP BID #60 gram Metoprolol Succinate [Toprol XL] 12.5 mg PO DAILY #30 tab.er Acetaminophen [Tylenol] 650 mg PO Q4H PRN #100 tablet PRN Reason: Pain (Mild 1-3)/fever traMADol [Ultram] 50 mg PO Q6H PRN #30 PRN Reason: Pain (Moderate 4-6) Home Medications: Home Meds Simvastatin 40 mg PO ACLUNCH 05/01/14 [History] cycloSPORINE [Restasis] 1 drop EYEBOTH BID 05/01/14 [History] Aspirin 81 mg PO DAILY 03/02/15 [History] Magnesium Chloride [Mag-64] 64 mg PO DAILY 03/02/15 [History] Calcium Citrate/Vitamin D3 [Calcium Citrate + D] 2 tab PO BID 02/08/19 [History] Cholecalciferol (Vitamin D3) [Vitamin D3] 2,000 unit PO DAILY 02/08/19 [History] Losartan Potassium 12.5 mg PO DAILY 02/08/19 [History] Acetaminophen [Tylenol] 650 mg PO Q4H PRN #100 tablet 02/26/21 [Rx] Insulin Detemir [Levemir Flextouch] 18 units SQ ACBREAKFAST #3 pen 02/26/21 [Rx] Metoprolol Succinate [Toprol XL] 12.5 mg PO DAILY #30 tab.er 02/26/21 [Rx] Nystatin 1 gm TP BID #60 gram 02/26/21 [Rx] Spironolactone [Aldactone] 25 mg PO DAILY #30 tablet 02/26/21 [Rx] traMADol [Ultram] 50 mg PO Q6H PRN #30 02/26/21 [Rx] Oxygen Therapy Mode: Room Air Patient Handouts: Metoprolol extended-release tablets, Pulmonary Hypertension, Living With Heart Failure Referrals: Lynette Grider, RN [Registered Nurse] - 03/02/21 12:00 pm (Per Lynette, may choose to reschedule appointment for later date if patient will be at [facility].) - Discharge Summary/Plan Comment DC Time >30 min.: Yes (45-new long term discharge) - Patient Data Vitals - Most Recent: Last Vital Signs Temp 36.5 C 02/26/21 11:01 Pulse 69 02/26/21 11:01 Resp 16 02/26/21 11:01 BP 109/73 02/26/21 11:01 Pulse Ox 93 L 02/26/21 11:01 Weight - Most Recent: 92.1 kg I&O - Last 24 hours: Intake & Output 02/25/21 02/26/21 02/26/21 22:59 06:59 14:59 Intake Total 360 290 Output Total 1350 450 300 Balance -990 -160 -300 Lab Results - Last 24 hrs: Laboratory Results - last 24 hr 02/26/21 Range/Units 05:00 Sodium 137 L (140-148) mmol/L Potassium 4.4 (3.6-5.2) mmol/L Chloride 102 (100-108) mmol/L Carbon Dioxide 23 (21-32) mmol/L Anion Gap 16.4 H (5.0-14.0) mmol/L BUN 48 H (7-18) mg/dL Creatinine 1.5 H (0.6-1.0) mg/dL Est Cr Clr Drug Dosing 21.89 mL/min Estimated GFR (MDRD) 33 L (>60) Glucose 144 H (74-106) mg/dL Calcium 8.6 (8.5-10.1) mg/dL Med Orders - Current: Current Medications Acetaminophen (Acetaminophen 325 Mg Tab) 650 mg PO Q4H PRN PRN Reason: Pain (Mild 1-3)/fever Last Admin: 02/26/21 06:46 Dose: 650 mg Documented by: Albuterol (Albuterol 0.083% 2.5 Mg/3 Ml Neb Soln) 2.5 mg NEB Q4H PRN PRN Reason: Shortness Of Breath/wheezing Artificial Tears (Hypromellose 0.3% Ophth Soln 15 Ml Bottle) 0 ml EYEBOTH QID PRN PRN Reason: DRY EYES Atorvastatin Calcium (Atorvastatin 20 Mg Tab) 20 mg PO DAILY@1200 [facility] Last Admin: 02/25/21 12:36 Dose: 20 mg Documented by: Bumetanide (Bumetanide 1 Mg Tab) 2 mg PO DAILY [facility] Last Admin: 02/26/21 08:46 Dose: 2 mg Documented by: Dextrose (Glucose Gel 15 Gm In 37.5 Gm Tube) 15 gm PO ONETIME PRN PRN Reason: Hypoglycemia Dextrose/Water (50% Dextrose In Water 50 Ml Syringe) 50 ml IV ONETIME PRN PRN Reason: Hypoglycemia Enoxaparin Sodium (Enoxaparin 30 Mg/0.3 Ml Syringe) 30 mg SUBCUT Q24H [facility] Last Admin: 02/25/21 15:18 Dose: 30 mg Documented by: Insulin Glargine (Insulin Glargine,Human Rec. Analog 100 Units/Ml 3 Ml Pen) 18 units SUBCUT DAILY [facility] Insulin Human Lispro (Insulin Lispro 100 Unit/Ml 3 Ml Kwikpen) 0 unit SUBCUT QIDACANDBED [facility]; Protocol Last Admin: 02/26/21 08:45 Dose: Not Given Documented by: Losartan Potassium (Losartan 25 Mg Tab) 12.5 mg PO DAILY [facility] Last Admin: 02/25/21 10:33 Dose: Not Given Documented by: Magnesium Oxide (Magnesium Oxide 400 Mg Tab) 400 mg PO DAILY [facility] Last Admin: 02/26/21 08:48 Dose: 400 mg Documented by: Metoprolol Succinate (Metoprolol Succinate 25 Mg Tab.Er) 12.5 mg PO DAILY [facility] Last Admin: 02/26/21 08:47 Dose: 12.5 mg Documented by: Nystatin (Nystatin Topical Powder 15 Gm Bottle) 0 gm TOP TID [facility] Last Admin: 02/26/21 08:47 Dose: 1 applic Documented by: Ondansetron HCl (Ondansetron 4 Mg/2 Ml Sdv) 4 mg IV Q4H PRN PRN Reason: Nausea/Vomiting Polyethylene Glycol (Polyethylene Glycol 3350 Powder 17 Gm Packet) 17 gm PO DAILY PRN PRN Reason: Constipation Last Admin: 02/24/21 10:27 Dose: 17 gm Documented by: Sodium Chloride (Sodium Chloride 0.9% 10 Ml Syringe) 10 ml FLUSH ASDIRECTED PRN PRN Reason: Keep Vein Open Spironolactone (Spironolactone 25 Mg Tab) 25 mg PO DAILY [facility] Last Admin: 02/26/21 08:48 Dose: 25 mg Documented by: Tramadol HCl (Tramadol 50 Mg Tab) 50 mg PO DAILY [facility] Last Admin: 02/26/21 08:51 Dose: 50 mg Documented by: Trolamine Salicylate (Trolamine Salicylate/Aloe Vera 10% Crm 85 Gm Tube) 0 gm TOP Q4H PRN PRN Reason: Pain Last Admin: 02/25/21 08:15 Dose: 1 applic Documented by: Discontinued Medications Bumetanide (Bumetanide 1 Mg/4 Ml Mdv) 2 mg IVPUSH ONETIME ONE Stop: 02/20/21 13:46 Last Admin: 02/20/21 14:58 Dose: 2 mg Documented by: Bumetanide (Bumetanide 1 Mg/4 Ml Mdv) Confirm Administered Dose 1 mg .ROUTE .STK-MED ONE Stop: 02/20/21 15:15 Last Admin: 02/20/21 16:23 Dose: Not Given Documented by: Bumetanide (Bumetanide 2.5 Mg/10 Ml Mdv) 2 mg IVPUSH Q12H [facility] Last Admin: 02/24/21 11:23 Dose: Not Given Documented by: Bumetanide (Bumetanide 1 Mg Tab) 2 mg PO Q12H [facility] Last Admin: 02/24/21 21:13 Dose: 2 mg Documented by: Sodium Chloride (Normal Saline) 1,000 mls @ 100 mls/hr IV ASDIRECTED [facility] Last Admin: 02/21/21 03:05 Dose: 100 mls/hr Documented by: Insulin Glargine (Insulin Glargine,Human Rec. Analog 100 Units/Ml 3 Ml Pen) 25 units SUBCUT ACBREAKFAST [facility] Last Admin: 02/25/21 08:15 Dose: Not Given Documented by: Insulin Glargine (Insulin Glargine,Human Rec. Analog 100 Units/Ml 3 Ml Pen) 20 units SUBCUT DAILY [facility] Last Admin: 02/26/21 11:04 Dose: Not Given Documented by: Magnesium Oxide (Magnesium Oxide 400 Mg Tab) 400 mg PO BID [facility] Metformin HCl (Metformin 500 Mg Tab) 500 mg PO BIDMEALS [facility] Last Admin: 02/21/21 08:32 Dose: 500 mg Documented by: Metoprolol Tartrate (Metoprolol Tartrate 25 Mg Tab) 12.5 mg PO BID [facility] Last Admin: 02/25/21 10:34 Dose: Not Given Documented by: Nystatin (Nystatin Topical Powder 15 Gm Bottle) 0 gm TOP TID [facility] Last Admin: 02/20/21 21:24 Dose: 1 dose Documented by: Spironolactone (Spironolactone 25 Mg Tab) 25 mg PO DAILY [facility] Last Admin: 02/24/21 08:14 Dose: 25 mg Documented by: Spironolactone (Spironolactone 25 Mg Tab) 25 mg PO ONETIME ONE Stop: 02/23/21 20:01 Last Admin: 02/23/21 19:34 Dose: 25 mg Documented by: Spironolactone (Spironolactone 25 Mg Tab) 25 mg PO BID [facility] Last Admin: 02/24/21 21:08 Dose: 25 mg Documented by:
[2021-02-26] MEDS: atorvaSTATin 20 MG Tab PO SCH (11:59)
== END 2021-02-26 14:45 | DRG 291 ==
LOC: JP.MS 12:29
PROVIDERS: ADMIT Hospitalist; ATTEND Hospitalist
DX: I13.0 Hypertensive heart and chronic kidney disease with heart failure and stage 1 through stage 4 chronic kidney disease, or unspecified chronic kidney disease (principal); I50.33 Acute on chronic diastolic (congestive) heart failure; I27.20 Pulmonary hypertension, unspecified; E11.22 Type 2 diabetes mellitus with diabetic chronic kidney disease; E66.9 Obesity, unspecified; N18.32 Chronic kidney disease, stage 3b; I25.10 Atherosclerotic heart disease of native coronary artery without angina pectoris; I07.1 Rheumatic tricuspid insufficiency; B37.2 Candidiasis of skin and nail; H54.7 Unspecified visual loss; E78.00 Pure hypercholesterolemia, unspecified; M54.9 Dorsalgia, unspecified; E86.0 Dehydration; G89.29 Other chronic pain; Z90.49 Acquired absence of other specified parts of digestive tract; Z91.013 Allergy to seafood; Z91.09 Other allergy status, other than to drugs and biological substances; Z98.49 Cataract extraction status, unspecified eye; Z79.82 Long term (current) use of aspirin; Z79.4 Long term (current) use of insulin; Z79.899 Other long term (current) drug therapy
CPT/HCPCS: 36415; 71046; 71046-26; 80048; 80053; 81001; 82947; 83605; 83735; 84145; 85025; 93005; 93306; 97110-GP; 97140-GP; 97161-GP; 97535-GP; A9270-GY; J1650; J1815-GY; J3490; J7030

== ENCOUNTER 2021-03-07 11:20 | Inpatient (IN) | payer MEDICARE ==
--- NOTE | 2021-03-07 11:58 | EDM.PDOC ---
ED HPI GENERAL MEDICAL PROBLEM - General Chief Complaint: Cardiovascular Problem Stated Complaint: MEDICAL EVAL VIA [facility] Time Seen by Provider: 03/07/21 11:58 Source of Information: Reports: Patient, RN Notes Reviewed History Limitations: Reports: No Limitations - History of Present Illness INITIAL COMMENTS - FREE TEXT/NARRATIVE: Reinaldo presents today for complaints of worsening weakness, fatigue, edema that is now to her waist and no significant weight loss despite diuretics. Recent hospitalization for similar complaints with ongoing weakness. Reinaldo denies fever, chills, nausea, vomiting, diarrhea or other concerns. She is DNR She is currently living in [facility]. Last hospitalization 02/20/2021. Middle Back Pain Score (Numeric/FACES): 6 - Related Data Allergies Allergy/AdvReac Type Severity Reaction Status Date / Time shellfish derived Allergy Hives Verified 03/07/21 11:34 enviromental Allergy Other Uncoded 03/07/21 11:34 Home Meds: Home Meds Simvastatin 40 mg PO ACLUNCH 05/01/14 [History] cycloSPORINE [Restasis] 1 drop EYEBOTH BID 05/01/14 [History] Aspirin 81 mg PO DAILY 03/02/15 [History] Magnesium Chloride [Mag-64] 64 mg PO DAILY 03/02/15 [History] Calcium Citrate/Vitamin D3 [Calcium Citrate + D] 2 tab PO BID 02/08/19 [History] Cholecalciferol (Vitamin D3) [Vitamin D3] 2,000 unit PO DAILY 02/08/19 [History] Losartan Potassium 12.5 mg PO DAILY 02/08/19 [History] Acetaminophen [Tylenol] 650 mg PO Q4H PRN #100 tablet 02/26/21 [Rx] Insulin Detemir [Levemir Flextouch] 18 units SQ ACBREAKFAST #3 pen 02/26/21 [Rx] Metoprolol Succinate [Toprol XL] 12.5 mg PO DAILY #30 tab.er 02/26/21 [Rx] Nystatin 1 gm TP BID #60 gram 02/26/21 [Rx] Spironolactone [Aldactone] 25 mg PO DAILY #30 tablet 02/26/21 [Rx] traMADol [Ultram] 50 mg PO Q6H PRN #30 02/26/21 [Rx] Bumetanide 2 mg PO BID 03/08/21 [History] Past Medical History HEENT History: Reports: Impaired Vision Cardiovascular History: Reports: Bypass, CAD, High Cholesterol, Hypertension Other Gastrointestinal History: colon ca 1978 Genitourinary History: Reports: None [employer]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: Musculoskeletal History: Reports: Back Pain, Chronic Endocrine/Metabolic History: Reports: Diabetes, Type II, Obesity/BMI 30+ Oncologic (Cancer) History: Reports: Colon - Infectious Disease History Infectious Disease History: Reports: Chicken Pox, Measles, Mumps - Past Surgical History Head Surgeries/Procedures: Reports: None HEENT Surgical History: Reports: Cataract Surgery Cardiovascular Surgical History: Reports: Coronary Artery Bypass GI Surgical History: Reports: Appendectomy Endocrine Surgical History: Reports: None Musculoskeletal Surgical History: Reports: None Oncologic Surgical History: Reports: None Dermatological Surgical History: Reports: None Social & Family History - Tobacco Use Tobacco Use Status *Q: Never Tobacco User - Caffeine Use Caffeine Use: Reports: None ED ROS GENERAL - Review of Systems Review Of Systems: See Below Constitutional: Reports: Malaise, Weakness, Fatigue, Decreased Appetite. Denies: Fever, Chills, Diaphoresis HEENT: Reports: No Symptoms Respiratory: Reports: Shortness of Breath (with activity). Denies: Wheezing, Pleuritic Chest Pain, Cough, Sputum, Hemoptysis Cardiovascular: Reports: No Symptoms Endocrine: Reports: Fatigue GI/Abdominal: Reports: No Symptoms : Reports: No Symptoms Musculoskeletal: Reports: No Symptoms Skin: Reports: Other (worsening edema all extremities and upu to abdomen) Neurological: Reports: Difficulty Walking, Weakness Psychiatric: Reports: No Symptoms Hematologic/Lymphatic: Reports: No Symptoms Immunologic: Reports: No Symptoms ED EXAM, GENERAL - Physical Exam Exam: See Below Exam Limited By: No Limitations General Appearance: Alert, WD/WN, Mild Distress Eye Exam: Bilateral Eye: Normal Inspection, PERRL Ears: Normal External Exam, Normal Canal, Hearing Grossly Normal, Normal TMs Throat/Mouth: Normal Inspection, Normal Lips, Normal Gums, Normal Voice, No Airway Compromise Head: Atraumatic, Normocephalic Neck: Normal Inspection, Supple, Non-Tender, Full Range of Motion. No: Lymphadenopathy (R), Lymphadenopathy (L) Respiratory/Chest: No Respiratory Distress, No Accessory Muscle Use, Decreased Breath Sounds. No: Crackles, Rales, Rhonchi, Wheezing Cardiovascular: Normal Peripheral Pulses, No Edema, No Gallop, No Rub, Irregularly Irregular, Other (murmur noted) GI/Abdominal: Normal Bowel Sounds, Distended, Other (edema to mid-abdomen, 1+ pitting). No: Guarding, Rigid, Rebound, Tender Back Exam: Normal Inspection. No: CVA Tenderness (R), CVA Tenderness (L) Extremities: Normal Capillary Refill, Other (4+ edema bilateral lower legs with weeping noted to RLE. 4+ edema RUE, 2+ edema LUE). No: Bryce's Sign, Increased Warmth Neurological: Alert, Oriented, Normal Cognition, No Motor/Sensory Deficits Psychiatric: Normal Affect, Normal Mood Skin Exam: Warm, No Rash, Other (edema as above) Lymphatic: No Adenopathy Course - Vital Signs Last Recorded V/S: Last Vital Signs Temp 36.7 C 03/07/21 20:44 Pulse 101 H 03/07/21 20:44 Resp 16 03/07/21 20:44 BP 105/26 L 03/07/21 20:44 Pulse Ox 95 03/07/21 20:44 - Orders/Labs/Meds Orders: Active Orders 24 hr Category Date Time Status Patient Status [ADT] Routine ADT 03/07/21 16:58 Active Communication Order [RC] STAT Care 03/07/21 16:58 Active Diabetes Education [RC] Click to Edit Care 03/07/21 16:58 Active Height and Weight [RC] DAILY Care 03/07/21 16:58 Active Intake and Output [RC] QSHIFT Care 03/07/21 16:58 Active Notify Provider Vital Signs [RC] ASDIRECTED Care 03/07/21 16:58 Active Notify Provider [RC] .PRN Care 03/07/21 16:58 Active Oxygen Therapy [RC] .PRN Care 03/07/21 16:58 Active Up With Assistance [RC] ASDIRECTED Care 03/07/21 16:58 Active Up to Chair [RC] QID Care 03/07/21 16:58 Active VTE/DVT Education [RC] Per Unit Routine Care 03/07/21 16:58 Active Vital Signs [RC] Q4H Care 03/07/21 16:58 Active 2 Gram Sodium Diet [DIET] Diet 03/07/21 Lunch Active Acetaminophen [TylenoL] Med 03/07/21 16:58 Active 650 mg PO Q4H PRN Aspirin [Halfprin] Med 03/08/21 09:00 Pending 81 mg PO DAILY Bumetanide [Bumex] Med 03/07/21 18:00 Active 2 mg IVPUSH Q12H Dextrose 50% in Water Med 03/07/21 16:58 Active 50 ml IV ONETIME PRN Dextrose [Glutose 15] Med 03/07/21 16:58 Active 15 gm PO ONETIME PRN LORazepam [Ativan ORAL Concentrate 1MG/0.5 ML U/D] Med 03/07/21 16:58 Active 0.5 mg BUCCAL Q2H PRN Losartan [Cozaar] Med 03/08/21 09:00 Pending 12.5 mg PO DAILY Magnesium Oxide Med 03/08/21 09:00 Pending 200 mg PO DAILY Metoprolol Succinate [Toprol XL] Med 03/08/21 09:00 Ordered 12.5 mg PO DAILY Morphine [Morphine 10 MG/0.5 ML Oral Syringe] Med 03/07/21 16:58 Active 5 mg BUCCAL Q2H PRN Nystatin [Nystop] Med 03/07/21 21:00 Ordered 1 gm TOP BID Ondansetron [Zofran] Med 03/07/21 16:58 Active 4 mg IV Q4H PRN Sodium Chloride 0.9% [Saline Flush] Med 03/07/21 16:58 Active 10 ml FLUSH ASDIRECTED PRN Spironolactone [Aldactone] Med 03/08/21 09:00 Ordered 25 mg PO DAILY cycloSPORINE [Restasis] Med 03/07/21 21:00 Pending 1 drop EYEBOTH BID polyethylene glycoL 3350 [MiraLAX] Med 03/07/21 16:58 Active 17 gm PO DAILY PRN Saline Lock Insert [OM.PC] Routine Oth 03/07/21 16:58 Ordered VTE Mechanical Contraindications [AST] Per Unit Routine Oth 03/07/21 16:58 Ordered VTE Pharmacological Contraindications [AST] Per Unit Oth 03/07/21 16:58 Order ed Routine Resuscitation Status Routine Resus Stat 03/07/21 16:04 Ordered Medication Orders Acetaminophen (Acetaminophen 325 Mg Tab) 650 mg PO Q4H PRN PRN Reason: Pain (Mild 1-3)/fever Aspirin (Aspirin 81 Mg Tab.Ec) 81 mg PO DAILY RICHIE Bumetanide (Bumetanide 2.5 Mg/10 Ml Mdv) 2 mg IVPUSH Q12H RICHIE Last Admin: 03/07/21 18:01 Dose: 2 mg Documented by: JOYCE Dextrose (Glucose Gel 15 Gm In 37.5 Gm Tube) 15 gm PO ONETIME PRN PRN Reason: Hypoglycemia Dextrose/Water (50% Dextrose In Water 50 Ml Syringe) 50 ml IV ONETIME PRN PRN Reason: Hypoglycemia Insulin Human Lispro (Insulin Lispro 100 Unit/Ml 3 Ml Kwikpen) 0 unit SUBCUT QIDACANDBED [facility]; Protocol Last Admin: 03/07/21 21:55 Dose: Not Given Documented by: Admin: 03/07/21 18:01 Dose: Not Given Documented by: JOYCE Lorazepam (Lorazepam Oral Concentrate 1mg/0.5ml U/D) 0.5 mg BUCCAL Q2H PRN PRN Reason: Anxiety Losartan Potassium (Losartan 25 Mg Tab) 12.5 mg PO DAILY [facility] Magnesium Oxide (Magnesium Oxide 400 Mg Tab) 200 mg PO DAILY [facility] Metoprolol Succinate (Metoprolol Succinate 25 Mg Tab.Er) 12.5 mg PO DAILY [facility] Morphine Sulfate (Morphine 10 Mg/0.5 Ml Oral Syringe) 5 mg BUCCAL Q2H PRN PRN Reason: Pain Last Admin: 03/07/21 21:55 Dose: 5 mg Documented by: Admin: 03/07/21 17:27 Dose: 5 mg Documented by: ARISTEO Cyclosporine [ (Restasis] Ophth Pod) 1 drop EYEBOTH BID [facility] Nystatin (Nystatin Topical Powder 15 Gm Bottle) 1 gm TOP BID [facility] Ondansetron HCl (Ondansetron 4 Mg/2 Ml Sdv) 4 mg IV Q4H PRN PRN Reason: Nausea/Vomiting Polyethylene Glycol (Polyethylene Glycol 3350 Powder 17 Gm Packet) 17 gm PO DAILY PRN PRN Reason: Constipation Sodium Chloride (Sodium Chloride 0.9% 10 Ml Syringe) 10 ml FLUSH ASDIRECTED PRN PRN Reason: Keep Vein Open Spironolactone (Spironolactone 25 Mg Tab) 25 mg PO DAILY [facility] Labs: Laboratory Tests 03/07/21 03/07/21 03/07/21 Range/Units 13:49 13:49 14:48 WBC 7.5 (4.5-11.0) K/uL RBC 4.55 (3.30-5.50) M/uL Hgb 14.2 (12.0-15.0) g/dL Hct 44.3 (36.0-48.0) % MCV 97 (80-98) fL MCH 31 (27-31) pg MCHC 32 (32-36) % Plt Count 110 L (150-400) K/uL Add Manual Diff Yes Neutrophils % (Manual) 81 H (36-66) % Band Neutrophils % 2 L (5-11) % Lymphocytes % (Manual) 8 L (24-44) % Monocytes % (Manual) 7 H (2-6) % Eosinophils % (Manual) 2 (2-4) % Anisocytosis Moderate H Sodium 136 L (140-148) mmol/L Potassium 4.7 (3.6-5.2) mmol/L Chloride 99 L (100-108) mmol/L Carbon Dioxide 24 (21-32) mmol/L Anion Gap 17.7 H (5.0-14.0) mmol/L BUN 49 H (7-18) mg/dL Creatinine 1.6 H (0.6-1.0) mg/dL Est Cr Clr Drug Dosing 24.50 mL/min Estimated GFR (MDRD) 31 L (>60) Glucose 96 (74-106) mg/dL Calcium 8.3 L (8.5-10.1) mg/dL Magnesium 2.0 (1.8-2.4) mg/dL Total Bilirubin 1.5 H D (0.2-1.0) mg/dL AST 27 (15-37) U/L ALT 14 (12-78) U/L Alkaline Phosphatase 234 H (46-116) U/L C-Reactive Protein 14.67 H (0.0-0.3) mg/dL NT-Pro-B Natriuret Pep 21016 H (5-450) pg/mL Total Protein 5.4 L (6.4-8.2) g/dL Albumin 2.2 L (3.4-5.0) g/dL Globulin 3.2 (2.3-3.5) g/dL Albumin/Globulin Ratio 0.7 L (1.2-2.2) TSH, Ultra Sensitive 1.659 (0.358-3.740) uIU/mL Urine Color Yellow (YELLOW) Urine Appearance Clear (CLEAR) Urine pH 5.0 (5.0-8.0) Ur Specific [place] <= 1.005 L (1.008-1.030) Urine Protein Negative (NEGATIVE) mg/dL Urine Glucose (UA) Negative (NEGATIVE) mg/dL Urine Ketones Negative (NEGATIVE) mg/dL Urine Occult Blood Small H (NEGATIVE) Urine Nitrite Negative (NEGATIVE) Urine Bilirubin Negative (NEGATIVE) Urine Urobilinogen 0.2 (0.2-1.0) EU/dL Ur Leukocyte Esterase Trace H (NEGATIVE) Urine RBC 0-5 (0-5) Urine WBC 5-10 H (0-5) Ur Epithelial Cells Rare Amorphous Sediment Few Urine Bacteria Moderate Urine Mucus Not seen Patient lab work reviewed, patient lab work and status discussed with Dr. Pope, he is in agreement to admit patient for CHF, CKD stage III, diabetes mellitus type two. Meds: Medications Generic Name Dose Route Start Last Admin Trade Name Freq PRN Reason Stop Dose Admin Acetaminophen 650 mg 03/07/21 16:58 Acetaminophen 325 Mg Tab PO Q4H PRN Pain (Mild 1-3)/fever Aspirin 81 mg 03/08/21 09:00 Aspirin 81 Mg Tab.Ec PO DAILY RICHIE Bumetanide 2 mg 03/07/21 18:00 03/07/21 18:01 Bumetanide 2.5 Mg/10 Ml Mdv IVPUSH 2 mg Q12H RICHIE Administration Dextrose 15 gm 03/07/21 16:58 Glucose Gel 15 Gm In 37.5 Gm Tube PO ONETIME PRN Hypoglycemia Dextrose/Water 50 ml 03/07/21 16:58 50% Dextrose In Water 50 Ml Syringe IV ONETIME PRN Hypoglycemia Insulin Human Lispro 0 unit 03/07/21 17:00 03/07/21 21:55 Insulin Lispro 100 Unit/Ml 3 Ml Kwikpen SUBCUT Not Given QIDACANDBED [facility] Protocol Lorazepam 0.5 mg 03/07/21 16:58 Lorazepam Oral Concentrate 1mg/0.5ml U/D BUCCAL Q2H PRN Anxiety Losartan Potassium 12.5 mg 03/08/21 09:00 Losartan 25 Mg Tab PO DAILY [facility] Magnesium Oxide 200 mg 03/08/21 09:00 Magnesium Oxide 400 Mg Tab PO DAILY RICHIE Metoprolol Succinate 12.5 mg 03/08/21 09:00 Metoprolol Succinate 25 Mg Tab.Er PO DAILY [facility] Morphine Sulfate 5 mg 03/07/21 16:58 03/07/21 21:55 Morphine 10 Mg/0.5 Ml Oral Syringe BUCCAL 5 mg Q2H PRN Administration Pain Cyclosporine [ 1 drop 03/07/21 21:00 Restasis] Ophth Pod EYEBOTH BID [facility] Nystatin 1 gm 03/07/21 21:00 Nystatin Topical Powder 15 Gm Bottle TOP BID [facility] Ondansetron HCl 4 mg 03/07/21 16:58 Ondansetron 4 Mg/2 Ml Sdv IV Q4H PRN Nausea/Vomiting Polyethylene Glycol 17 gm 03/07/21 16:58 Polyethylene Glycol 3350 Powder 17 Gm Packet PO DAILY PRN Constipation Sodium Chloride 10 ml 03/07/21 16:58 Sodium Chloride 0.9% 10 Ml Syringe FLUSH ASDIRECTED PRN Keep Vein Open Spironolactone 25 mg 03/08/21 09:00 Spironolactone 25 Mg Tab PO DAILY RICHIE Discontinued Medications Generic Name Dose Route Start Last Admin Trade Name Freq PRN Reason Stop Dose Admin Sodium Chloride 10 ml 03/07/21 12:28 03/07/21 13:55 Sodium Chloride 0.9% 10 Ml Syringe FLUSH 10 ml ASDIRECTED PRN Administration Keep Vein Open Tramadol HCl 50 mg 03/07/21 15:38 03/07/21 15:42 Tramadol 50 Mg Tab PO 03/07/21 15:39 50 mg ONETIME ONE Administration Departure - Departure Time of Disposition: 16:00 Disposition: Admitted As Inpatient 68 Condition: Poor Clinical Impression: CHF (congestive heart failure) Type 2 diabetes mellitus Qualifiers: Diabetes mellitus 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 insulin use: with 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 use Diabetes mellitus complication status: with other specified complication Qualified Code(s): E11.69 - Type 2 diabetes mellitus with other specified complication CKD (chronic kidney disease) Qualifiers: Chronic kidney disease stage: stage 3 (moderate) Chronic kidney disease stage 3 subtype: stage 3b (GFR 30-44) Qualified Code(s): N18.32 - Chronic kidney disease, stage 3b Sepsis Event Note (ED) - Evaluation Sepsis Screening Result: No Definite Risk - Focused Exam Vital Signs: Vital Signs Pulse BP Pulse Ox 03/07/21 15:29 48 L 116/39 L 91 L 03/07/21 14:59 88 135/29 L 94 L - Assessment/Plan Assessment:: Patient admitted as inpatient for congestive heart failure, CKD stage III and diabetes mellitus type two.
[2021-03-07] MEDS ORDERED: Sodium Chloride 0.9% 10 ML Syringe FLUSH PRN ×2 (12:28→16:58)
[2021-03-07] MEDS ORDERED: traMADol 50 MG Tab PO ONE (15:38)
--- NOTE | 2021-03-07 16:16 | PCM.HP.2 ---
H&P History of Present Illness - General Date of Service: 03/07/21 Admit Problem/Dx: Admission Diagnosis/Problem Admission Diagnosis/Problem Diastolic heart failure Source of Information: Patient, Old Records, Provider, RN Notes Reviewed History Limitations: Reports: No Limitations - History of Present Illness Initial Comments - Free Text/Narative: Ms. 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 Ms. Padma Quiros was hospitalized at this facility about 2 weeks ago and did receive diuretic therapy as well as wraps to both lower extremities. While she was here edema did improve, but did not totally resolve. Because of severe weakness she was discharged to the [facility] for restorative physical therapy and Occupational Therapy. Since being at the halfway she has had increase in her peripheral edema involving both lower extremities as well as both upper extremities. She does have underlying chronic kidney disease. Echocardiogram obtained during her last hospital stay showed evidence of significant diastolic dysfunction of the left ventricle as well as right-sided heart failure. She is very weakened and fatigued by her underlying medical problems and feels as though she is slowly dying. She does not want to consider further aggressive interventions or evaluation and would like to be kept comfortable. - Related Data Allergies/Adverse Reactions: Allergies Allergy/AdvReac Type Severity Reaction Status Date / Time shellfish derived Allergy Hives Verified 03/07/21 11:34 enviromental Allergy Other Uncoded 03/07/21 11:34 Home Medications: Home Meds Simvastatin 40 mg PO ACLUNCH 05/01/14 [History] cycloSPORINE [Restasis] 1 drop EYEBOTH BID 05/01/14 [History] Aspirin 81 mg PO DAILY 03/02/15 [History] Magnesium Chloride [Mag-64] 64 mg PO DAILY 03/02/15 [History] Calcium Citrate/Vitamin D3 [Calcium Citrate + D] 2 tab PO BID 02/08/19 [History] Cholecalciferol (Vitamin D3) [Vitamin D3] 2,000 unit PO DAILY 02/08/19 [History] Losartan Potassium 12.5 mg PO DAILY 02/08/19 [History] Acetaminophen [Tylenol] 650 mg PO Q4H PRN #100 tablet 02/26/21 [Rx] Insulin Detemir [Levemir Flextouch] 18 units SQ ACBREAKFAST #3 pen 02/26/21 [Rx] Metoprolol Succinate [Toprol XL] 12.5 mg PO DAILY #30 tab.er 02/26/21 [Rx] Nystatin 1 gm TP BID #60 gram 02/26/21 [Rx] Spironolactone [Aldactone] 25 mg PO DAILY #30 tablet 02/26/21 [Rx] traMADol [Ultram] 50 mg PO Q6H PRN #30 02/26/21 [Rx] Past Medical History HEENT History: Reports: Impaired Vision Cardiovascular History: Reports: Bypass, CAD, High Cholesterol, Hypertension Other Gastrointestinal History: colon ca 1977 Genitourinary History: Reports: None 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: Musculoskeletal History: Reports: Back Pain, Chronic Endocrine/Metabolic History: Reports: Diabetes, Type II, Obesity/BMI 30+ Oncologic (Cancer) History: Reports: Colon - Infectious Disease History Infectious Disease History: Reports: Chicken Pox, Measles, Mumps - Past Surgical History Head Surgeries/Procedures: Reports: None HEENT Surgical History: Reports: Cataract Surgery Cardiovascular Surgical History: Reports: Coronary Artery Bypass GI Surgical History: Reports: Appendectomy Endocrine Surgical History: Reports: None Musculoskeletal Surgical History: Reports: None Oncologic Surgical History: Reports: None Dermatological Surgical History: Reports: None Social & Family History - Tobacco Use Tobacco Use Status *Q: Never Tobacco User - Caffeine Use Caffeine Use: Reports: None H&P Review of Systems - Review of Systems: Review Of Systems: See Below General: Reports: Malaise, Weakness, Fatigue. Denies: Fever, Chills HEENT: Reports: No Symptoms Pulmonary: Reports: Shortness of Breath. Denies: Wheezing, Pleuritic Chest Pain, Cough, Sputum, Hemoptysis Cardiovascular: Reports: Dyspnea on Exertion, Edema. Denies: Chest Pain, Palpitations, Orthopnea, PND, Lightheadedness Gastrointestinal: Reports: No Symptoms Genitourinary: Reports: No Symptoms Musculoskeletal: Reports: Back Pain. Denies: Neck Pain, Joint Pain, Joint Swelling, Muscle Pain, Muscle Stiffness Skin: Reports: No Symptoms Psychiatric: Reports: No Symptoms Neurological: Reports: No Symptoms Hematologic/Lymphatic: Reports: No Symptoms Immunologic: Reports: No Symptoms Exam - Exam Exam: See Below - Vital Signs Vital Signs: Last Vital Signs Temp 97.7 F 03/07/21 11:46 Pulse 48 L 03/07/21 15:29 Resp 14 03/07/21 11:46 BP 116/39 L 03/07/21 15:29 Pulse Ox 91 L 03/07/21 15:29 Weight: 197 lb - Exam General: Alert, Oriented, Cooperative, Moderate Distress HEENT: Conjunctiva Clear, Hearing Intact, Mucosa Moist & [place], Normal Nasal Septum, Posterior Pharynx Clear, Pupils Equal Neck: Supple, Trachea Midline, +2 Carotid Pulse wo Bruit Lungs: Clear to Auscultation, Normal Respiratory Effort, Decreased Breath Sounds Cardiovascular: Regular Rate, Regular Rhythm, Normal S1, Normal S2. No: Systolic Murmur, Diastolic Murmur GI/Abdominal Exam: Soft, Non-Tender, No Organomegaly, No Distention Back Exam: Decreased Range of Motion, Vertebral Tenderness. No: Muscle Spasm, Paraspinal Tenderness Extremities: Pedal Edema (Anasarca upper and lower extremities). No: Redness Skin: Warm, Dry, Intact Neurological: Cranial Nerves Intact, Strength Equal Bilateral, Normal Speech, Normal Tone, Sensation Intact. No: Focal Deficit Neuro Extensive - Mental Status: Alert, Oriented x3, Normal Mood/Affect, Normal Cognition, Memory Intact - Patient Data Lab Results Last 24 hrs: Laboratory Results - last 24 hr 03/07/21 03/07/21 03/07/21 Range/Units 13:49 13:49 14:48 WBC 7.5 (4.5-11.0) K/uL RBC 4.55 (3.30-5.50) M/uL Hgb 14.2 (12.0-15.0) g/dL Hct 44.3 (36.0-48.0) % MCV 97 (80-98) fL MCH 31 (27-31) pg MCHC 32 (32-36) % Plt Count 110 L (150-400) K/uL Add Manual Diff Yes Neutrophils % (Manual) 81 H (36-66) % Band Neutrophils % 2 L (5-11) % Lymphocytes % (Manual) 8 L (24-44) % Monocytes % (Manual) 7 H (2-6) % Eosinophils % (Manual) 2 (2-4) % Anisocytosis Moderate H Sodium 136 L (140-148) mmol/L Potassium 4.7 (3.6-5.2) mmol/L Chloride 99 L (100-108) mmol/L Carbon Dioxide 24 (21-32) mmol/L Anion Gap 17.7 H (5.0-14.0) mmol/L BUN 49 H (7-18) mg/dL Creatinine 1.6 H (0.6-1.0) mg/dL Est Cr Clr Drug Dosing 24.50 mL/min Estimated GFR (MDRD) 31 L (>60) Glucose 96 (74-106) mg/dL Calcium 8.3 L (8.5-10.1) mg/dL Magnesium 2.0 (1.8-2.4) mg/dL Total Bilirubin 1.5 H D (0.2-1.0) mg/dL AST 27 (15-37) U/L ALT 14 (12-78) U/L Alkaline Phosphatase 234 H (46-116) U/L C-Reactive Protein 14.67 H (0.0-0.3) mg/dL NT-Pro-B Natriuret Pep 01488 H (5-450) pg/mL Total Protein 5.4 L (6.4-8.2) g/dL Albumin 2.2 L (3.4-5.0) g/dL Globulin 3.2 (2.3-3.5) g/dL Albumin/Globulin Ratio 0.7 L (1.2-2.2) TSH, Ultra Sensitive 1.659 (0.358-3.740) uIU/mL Urine Color Yellow (YELLOW) Urine Appearance Clear (CLEAR) Urine pH 5.0 (5.0-8.0) Ur Specific [place] <= 1.005 L (1.008-1.030) Urine Protein Negative (NEGATIVE) mg/dL Urine Glucose (UA) Negative (NEGATIVE) mg/dL Urine Ketones Negative (NEGATIVE) mg/dL Urine Occult Blood Small H (NEGATIVE) Urine Nitrite Negative (NEGATIVE) Urine Bilirubin Negative (NEGATIVE) Urine Urobilinogen 0.2 (0.2-1.0) EU/dL Ur Leukocyte Esterase Trace H (NEGATIVE) Urine RBC 0-5 (0-5) Urine WBC 5-10 H (0-5) Ur Epithelial Cells Rare Amorphous Sediment Few Urine Bacteria Moderate Urine Mucus Not seen Result Diagrams: 03/07/21 13:49 03/07/21 13:49 Sepsis Event Note - Evaluation Sepsis Screening Result: No Definite Risk - Focused Exam Vital Signs: Vital Signs Temp Pulse Resp BP Pulse Ox 03/07/21 15:29 48 L 116/39 L 91 L 03/07/21 14:59 88 135/29 L 94 L 03/07/21 11:46 97.7 F 84 14 140/36 L 97 *Q Meaningful Use (ADM) - VTE *Q VTE Mechanical Contraindications *Q: Bilateral Lower Edema VTE Pharmacological Contraindications *Q: Not Candidate LT Anticoag - VTE Risk Assess *Q Each Risk Factor Represents 1 Point: Swollen Legs, Current, Obesity ( BMI > 25 kg/m2), Congestive heart failure (CHF) Total Score 1 Point Risk Factors: 3 Each Risk Factor Represents 2 Points: None Total Score 2 Point Risk Factors: 0 Each Risk Factor Represents 3 Points: Age 75 Years or Greater Total Score 3 Point Risk Factors: 3 Each Risk Factor Represents 5 Points: None Total Score 5 Point Risk Factors: 0 Venous Thromboembolism Risk Factor Score *Q: 6 Problem List Initiated/Reviewed/Updated: Yes Orders Last 24hrs: Active Orders 24 hr Category Date Time Status Patient Status Manage Transfer [TRANSFER] Routine ADT 03/07/21 16:01 Ordered Sodium Chloride 0.9% [Saline Flush] Med 03/07/21 12:28 Active 10 ml FLUSH ASDIRECTED PRN Saline Lock Insert [OM.PC] Routine Oth 03/07/21 12:28 Ordered Resuscitation Status Routine Resus Stat 03/07/21 16:04 Ordered Medication Orders Sodium Chloride (Sodium Chloride 0.9% 10 Ml Syringe) 10 ml FLUSH ASDIRECTED PRN PRN Reason: Keep Vein Open Last Admin: 03/07/21 13:55 Dose: 10 ml Documented by: ANDREEA Assessment/Plan Comment:: ASSESSMENT AND PLAN DIASTOLIC CONGESTIVE HEART FAILURE/RIGHT HEART FAILURE-recent progressive increase in peripheral edema and evidence of pulmonary edema. Since discharge to the halfway she has had a progressive increase in peripheral edema all 4 extremities. She feels worn out by her progressive medical problems and wants to proceed with comfort cares only. She does not want to consider hospice admission. -2 g sodium diet -IV Bumex 2 mg twice daily -Medication as needed for comfort -Wrap both lower extremities daily CHRONIC KIDNEY DISEASE STAGE III TYPE 2 DIABETES MELLITUS -Hold long-acting insulin -4 times daily glucometers -Low-dose sliding scale Humalog PALLIATIVE CARE-she would like to proceed with comfort cares only, but does not want hospice admission -Morphine and lorazepam as needed for comfort MAINTENANCE ISSUES -DVT prophylaxis; not indicated -GI prophylaxis; not indicated -[place] catheter; not indicated -Nutrition; 2 g sodium diet -Nicotine dependence; not required CODE STATUS-FULL CODE ADMISSION STATUS-patient will be admitted to inpatient status, expect at least a 2 night hospital stay for evaluation and management of problems as outlined above. At the time of this admission I do not reasonably expected evaluation and management of this problem will require more than a 96 hour hospital stay. DISPOSITION-anticipate discharge to home after the hospital stay. PRIMARY CARE PROVIDER-Dr. Cabrera - Mortality Measure Prognosis:: Poor
[2021-03-07] MEDS ORDERED: 50% Dextrose in Water 50 ML Syringe IV PRN (16:58)
[2021-03-07] MEDS ORDERED: Acetaminophen 325 MG Tab PO PRN (16:58)
[2021-03-07] MEDS ORDERED: Glucose Gel 15 GM in 37.5 GM Tube PO PRN (16:58)
[2021-03-07] MEDS ORDERED: Polyethylene Glycol 3350 Powder 17 GM Packet PO PRN (16:58)
[2021-03-07] MEDS ORDERED: LORazepam ORAL Concentrate 1MG/0.5ML U/D BUCCAL PRN (16:58)
[2021-03-07] MEDS ORDERED: Ondansetron 4 MG/2 ML SDV IV PRN (16:58)
[2021-03-07] MEDS: Morphine 10 MG/0.5 ML Oral Syringe BUCCAL PRN ×2 (17:27→21:55)
[2021-03-07] MEDS: Insulin Lispro 100 Unit/ML 3 ML KwikPen SUBCUT SCH ×2 (18:01→21:55)
[2021-03-07] MEDS: Bumetanide 2.5 MG/10 ML MDV IVPUSH SCH (18:01)
[2021-03-07] MEDS ORDERED: CYCLOSPORINE EYEBOTH SCH (21:00)
[2021-03-07] MEDS ORDERED: Nystatin Topical Powder 15 GM Bottle TOP SCH (21:00)
[2021-03-08] MEDS: Bumetanide 2.5 MG/10 ML MDV IVPUSH SCH ×2 (06:17→17:08)
[2021-03-08] MEDS ORDERED: Hypromellose 0.3% Ophth Soln 15 ML Bottle EYEBOTH PRN (08:10)
[2021-03-08] MEDS: Insulin Lispro 100 Unit/ML 3 ML KwikPen SUBCUT SCH ×4 (08:40→21:38)
[2021-03-08] MEDS: Nystatin Topical Powder 15 GM Bottle TOP SCH ×2 (08:43→20:06)
[2021-03-08] MEDS ORDERED: Spironolactone 25 MG Tab PO SCH (09:00)
[2021-03-08] MEDS ORDERED: Magnesium Oxide 400 MG Tab PO SCH (09:00)
[2021-03-08] MEDS ORDERED: Metoprolol Succinate 25 MG Tab.ER PO SCH (09:00)
[2021-03-08] MEDS ORDERED: Losartan 25 MG Tab PO SCH (09:00)
[2021-03-08] MEDS ORDERED: Aspirin 81 MG Tab.EC PO SCH (09:00)
[2021-03-08] MEDS: Morphine 10 MG/0.5 ML Oral Syringe BUCCAL PRN ×2 (10:19→12:29)
--- NOTE | 2021-03-08 12:17 | PCM.PN ---
- General Info Date of Service: 03/08/21 Subjective Update: Ms. Angulo has been more comfortable since admission to the hospital, pain well controlled with use of morphine. She does experience some increasing pain with transfers and activity. Functional Status: Reports: Pain Controlled, Urinating. Denies: Tolerating Diet - Review of Systems General: Reports: Weakness, Fatigue. Denies: Fever, Chills Pulmonary: Reports: No Symptoms Cardiovascular: Reports: No Symptoms Gastrointestinal: Reports: No Symptoms Musculoskeletal: Reports: Back Pain, Leg Pain. Denies: Foot Pain, Joint Pain, Joint Swelling - Patient Data Vitals - Most Recent: Last Vital Signs Temp 96.7 F L 03/08/21 07:46 Pulse 98 03/08/21 08:46 Resp 18 03/08/21 07:46 BP 104/54 L 03/08/21 08:46 Pulse Ox 92 L 03/08/21 07:46 Weight - Most Recent: 201 lb 4.513 oz I&O - Last 24 Hours: Intake & Output 03/07/21 03/08/21 03/08/21 22:59 06:59 14:59 Intake Total 100 240 Output Total 300 Balance -200 240 Lab Results Last 24 Hours: Laboratory Results - last 24 hr 03/07/21 03/07/21 03/07/21 Range/Units 13:49 13:49 14:48 WBC 7.5 (4.5-11.0) K/uL RBC 4.55 (3.30-5.50) M/uL Hgb 14.2 (12.0-15.0) g/dL Hct 44.3 (36.0-48.0) % MCV 97 (80-98) fL MCH 31 (27-31) pg MCHC 32 (32-36) % Plt Count 110 L (150-400) K/uL Add Manual Diff Yes Neutrophils % (Manual) 81 H (36-66) % Band Neutrophils % 2 L (5-11) % Lymphocytes % (Manual) 8 L (24-44) % Monocytes % (Manual) 7 H (2-6) % Eosinophils % (Manual) 2 (2-4) % Anisocytosis Moderate H Sodium 136 L (140-148) mmol/L Potassium 4.7 (3.6-5.2) mmol/L Chloride 99 L (100-108) mmol/L Carbon Dioxide 24 (21-32) mmol/L Anion Gap 17.7 H (5.0-14.0) mmol/L BUN 49 H (7-18) mg/dL Creatinine 1.6 H (0.6-1.0) mg/dL Est Cr Clr Drug Dosing 24.50 mL/min Estimated GFR (MDRD) 31 L (>60) Glucose 96 (74-106) mg/dL POC Glucose (74-106) mg/dL Calcium 8.3 L (8.5-10.1) mg/dL Magnesium 2.0 (1.8-2.4) mg/dL Total Bilirubin 1.5 H D (0.2-1.0) mg/dL AST 27 (15-37) U/L ALT 14 (12-78) U/L Alkaline Phosphatase 234 H (46-116) U/L C-Reactive Protein 14.67 H (0.0-0.3) mg/dL NT-Pro-B Natriuret Pep 13521 H (5-450) pg/mL Total Protein 5.4 L (6.4-8.2) g/dL Albumin 2.2 L (3.4-5.0) g/dL Globulin 3.2 (2.3-3.5) g/dL Albumin/Globulin Ratio 0.7 L (1.2-2.2) TSH, Ultra Sensitive 1.659 (0.358-3.740) uIU/mL Urine Color Yellow (YELLOW) Urine Appearance Clear (CLEAR) Urine pH 5.0 (5.0-8.0) Ur Specific [place] <= 1.005 L (1.008-1.030) Urine Protein Negative (NEGATIVE) mg/dL Urine Glucose (UA) Negative (NEGATIVE) mg/dL Urine Ketones Negative (NEGATIVE) mg/dL Urine Occult Blood Small H (NEGATIVE) Urine Nitrite Negative (NEGATIVE) Urine Bilirubin Negative (NEGATIVE) Urine Urobilinogen 0.2 (0.2-1.0) EU/dL Ur Leukocyte Esterase Trace H (NEGATIVE) Urine RBC 0-5 (0-5) Urine WBC 5-10 H (0-5) Ur Epithelial Cells Rare Amorphous Sediment Few Urine Bacteria Moderate Urine Mucus Not seen 03/07/21 03/07/21 03/08/21 Range/Units 17:49 21:05 07:26 WBC (4.5-11.0) K/uL RBC (3.30-5.50) M/uL Hgb (12.0-15.0) g/dL Hct (36.0-48.0) % MCV (80-98) fL MCH (27-31) pg MCHC (32-36) % Plt Count (150-400) K/uL Add Manual Diff Neutrophils % (Manual) (36-66) % Band Neutrophils % (5-11) % Lymphocytes % (Manual) (24-44) % Monocytes % (Manual) (2-6) % Eosinophils % (Manual) (2-4) % Anisocytosis Sodium (140-148) mmol/L Potassium (3.6-5.2) mmol/L Chloride (100-108) mmol/L Carbon Dioxide (21-32) mmol/L Anion Gap (5.0-14.0) mmol/L BUN (7-18) mg/dL Creatinine (0.6-1.0) mg/dL Est Cr Clr Drug Dosing mL/min Estimated GFR (MDRD) (>60) Glucose (74-106) mg/dL POC Glucose 99 73 L 76 (74-106) mg/dL Calcium (8.5-10.1) mg/dL Magnesium (1.8-2.4) mg/dL Total Bilirubin (0.2-1.0) mg/dL AST (15-37) U/L ALT (12-78) U/L Alkaline Phosphatase (46-116) U/L C-Reactive Protein (0.0-0.3) mg/dL NT-Pro-B Natriuret Pep (5-450) pg/mL Total Protein (6.4-8.2) g/dL Albumin (3.4-5.0) g/dL Globulin (2.3-3.5) g/dL Albumin/Globulin Ratio (1.2-2.2) TSH, Ultra Sensitive (0.358-3.740) uIU/mL Urine Color (YELLOW) Urine Appearance (CLEAR) Urine pH (5.0-8.0) Ur Specific [place] (1.008-1.030) Urine Protein (NEGATIVE) mg/dL Urine Glucose (UA) (NEGATIVE) mg/dL Urine Ketones (NEGATIVE) mg/dL Urine Occult Blood (NEGATIVE) Urine Nitrite (NEGATIVE) Urine Bilirubin (NEGATIVE) Urine Urobilinogen (0.2-1.0) EU/dL Ur Leukocyte Esterase (NEGATIVE) Urine RBC (0-5) Urine WBC (0-5) Ur Epithelial Cells Amorphous Sediment Urine Bacteria Urine Mucus 03/08/21 Range/Units 11:49 WBC (4.5-11.0) K/uL RBC (3.30-5.50) M/uL Hgb (12.0-15.0) g/dL Hct (36.0-48.0) % MCV (80-98) fL MCH (27-31) pg MCHC (32-36) % Plt Count (150-400) K/uL Add Manual Diff Neutrophils % (Manual) (36-66) % Band Neutrophils % (5-11) % Lymphocytes % (Manual) (24-44) % Monocytes % (Manual) (2-6) % Eosinophils % (Manual) (2-4) % Anisocytosis Sodium (140-148) mmol/L Potassium (3.6-5.2) mmol/L Chloride (100-108) mmol/L Carbon Dioxide (21-32) mmol/L Anion Gap (5.0-14.0) mmol/L BUN (7-18) mg/dL Creatinine (0.6-1.0) mg/dL Est Cr Clr Drug Dosing mL/min Estimated GFR (MDRD) (>60) Glucose (74-106) mg/dL POC Glucose 92 (74-106) mg/dL Calcium (8.5-10.1) mg/dL Magnesium (1.8-2.4) mg/dL Total Bilirubin (0.2-1.0) mg/dL AST (15-37) U/L ALT (12-78) U/L Alkaline Phosphatase (46-116) U/L C-Reactive Protein (0.0-0.3) mg/dL NT-Pro-B Natriuret Pep (5-450) pg/mL Total Protein (6.4-8.2) g/dL Albumin (3.4-5.0) g/dL Globulin (2.3-3.5) g/dL Albumin/Globulin Ratio (1.2-2.2) TSH, Ultra Sensitive (0.358-3.740) uIU/mL Urine Color (YELLOW) Urine Appearance (CLEAR) Urine pH (5.0-8.0) Ur Specific [place] (1.008-1.030) Urine Protein (NEGATIVE) mg/dL Urine Glucose (UA) (NEGATIVE) mg/dL Urine Ketones (NEGATIVE) mg/dL Urine Occult Blood (NEGATIVE) Urine Nitrite (NEGATIVE) Urine Bilirubin (NEGATIVE) Urine Urobilinogen (0.2-1.0) EU/dL Ur Leukocyte Esterase (NEGATIVE) Urine RBC (0-5) Urine WBC (0-5) Ur Epithelial Cells Amorphous Sediment Urine Bacteria Urine Mucus Med Orders - Current: Current Medications Acetaminophen (Acetaminophen 325 Mg Tab) 650 mg PO Q4H PRN PRN Reason: Pain (Mild 1-3)/fever Artificial Tears (Hypromellose 0.3% Ophth Soln 15 Ml Bottle) 0 ml EYEBOTH QID PRN PRN Reason: DRY EYES Aspirin (Aspirin 81 Mg Tab.Ec) 81 mg PO DAILY [facility] Last Admin: 03/08/21 08:43 Dose: 81 mg Documented by: Bumetanide (Bumetanide 2.5 Mg/10 Ml Mdv) 2 mg IVPUSH Q12H [facility] Last Admin: 03/08/21 06:17 Dose: 2 mg Documented by: Dextrose (Glucose Gel 15 Gm In 37.5 Gm Tube) 15 gm PO ONETIME PRN PRN Reason: Hypoglycemia Dextrose/Water (50% Dextrose In Water 50 Ml Syringe) 50 ml IV ONETIME PRN PRN Reason: Hypoglycemia Insulin Human Lispro (Insulin Lispro 100 Unit/Ml 3 Ml Kwikpen) 0 unit SUBCUT QIDACANDBED [facility]; Protocol Last Admin: 03/08/21 12:10 Dose: Not Given Documented by: Lorazepam (Lorazepam Oral Concentrate 1mg/0.5ml U/D) 0.5 mg BUCCAL Q2H PRN PRN Reason: Anxiety Losartan Potassium (Losartan 25 Mg Tab) 12.5 mg PO DAILY [facility] Last Admin: 03/08/21 08:43 Dose: 12.5 mg Documented by: Magnesium Oxide (Magnesium Oxide 400 Mg Tab) 200 mg PO DAILY [facility] Last Admin: 03/08/21 08:42 Dose: 200 mg Documented by: Metoprolol Succinate (Metoprolol Succinate 25 Mg Tab.Er) 12.5 mg PO DAILY [facility] Last Admin: 03/08/21 08:46 Dose: 12.5 mg Documented by: Morphine Sulfate (Morphine 10 Mg/0.5 Ml Oral Syringe) 5 mg BUCCAL Q2H PRN PRN Reason: Pain Last Admin: 03/08/21 10:19 Dose: 5 mg Documented by: Nystatin (Nystatin Topical Powder 15 Gm Bottle) 0 gm TOP BID [facility] Last Admin: 03/08/21 08:43 Dose: 1 applic Documented by: Ondansetron HCl (Ondansetron 4 Mg/2 Ml Sdv) 4 mg IV Q4H PRN PRN Reason: Nausea/Vomiting Polyethylene Glycol (Polyethylene Glycol 3350 Powder 17 Gm Packet) 17 gm PO DAILY PRN PRN Reason: Constipation Sodium Chloride (Sodium Chloride 0.9% 10 Ml Syringe) 10 ml FLUSH ASDIRECTED PRN PRN Reason: Keep Vein Open Spironolactone (Spironolactone 25 Mg Tab) 25 mg PO DAILY [facility] Last Admin: 03/08/21 08:43 Dose: 25 mg Documented by: Discontinued Medications Sodium Chloride (Sodium Chloride 0.9% 10 Ml Syringe) 10 ml FLUSH ASDIRECTED PRN PRN Reason: Keep Vein Open Last Admin: 03/07/21 13:55 Dose: 10 ml Documented by: Tramadol HCl (Tramadol 50 Mg Tab) 50 mg PO ONETIME ONE Stop: 03/07/21 15:39 Last Admin: 03/07/21 15:42 Dose: 50 mg Documented by: - Exam General: Alert, Oriented, Cooperative, Mild Distress Lungs: Clear to Auscultation, Normal Respiratory Effort Cardiovascular: Regular Rate, Regular Rhythm, No Murmurs GI/Abdominal Exam: Soft, Non-Tender, No Organomegaly, No Distention Extremities: Pedal Edema - Patient Data Lab Results Last 24 hrs: Laboratory Results - last 24 hr 03/07/21 03/07/21 03/07/21 Range/Units 13:49 13:49 14:48 WBC 7.5 (4.5-11.0) K/uL RBC 4.55 (3.30-5.50) M/uL Hgb 14.2 (12.0-15.0) g/dL Hct 44.3 (36.0-48.0) % MCV 97 (80-98) fL MCH 31 (27-31) pg MCHC 32 (32-36) % Plt Count 110 L (150-400) K/uL Add Manual Diff Yes Neutrophils % (Manual) 81 H (36-66) % Band Neutrophils % 2 L (5-11) % Lymphocytes % (Manual) 8 L (24-44) % Monocytes % (Manual) 7 H (2-6) % Eosinophils % (Manual) 2 (2-4) % Anisocytosis Moderate H Sodium 136 L (140-148) mmol/L Potassium 4.7 (3.6-5.2) mmol/L Chloride 99 L (100-108) mmol/L Carbon Dioxide 24 (21-32) mmol/L Anion Gap 17.7 H (5.0-14.0) mmol/L BUN 49 H (7-18) mg/dL Creatinine 1.6 H (0.6-1.0) mg/dL Est Cr Clr Drug Dosing 24.50 mL/min Estimated GFR (MDRD) 31 L (>60) Glucose 96 (74-106) mg/dL POC Glucose (74-106) mg/dL Calcium 8.3 L (8.5-10.1) mg/dL Magnesium 2.0 (1.8-2.4) mg/dL Total Bilirubin 1.5 H D (0.2-1.0) mg/dL AST 27 (15-37) U/L ALT 14 (12-78) U/L Alkaline Phosphatase 234 H (46-116) U/L C-Reactive Protein 14.67 H (0.0-0.3) mg/dL NT-Pro-B Natriuret Pep 55350 H (5-450) pg/mL Total Protein 5.4 L (6.4-8.2) g/dL Albumin 2.2 L (3.4-5.0) g/dL Globulin 3.2 (2.3-3.5) g/dL Albumin/Globulin Ratio 0.7 L (1.2-2.2) TSH, Ultra Sensitive 1.659 (0.358-3.740) uIU/mL Urine Color Yellow (YELLOW) Urine Appearance Clear (CLEAR) Urine pH 5.0 (5.0-8.0) Ur Specific [place] <= 1.005 L (1.008-1.030) Urine Protein Negative (NEGATIVE) mg/dL Urine Glucose (UA) Negative (NEGATIVE) mg/dL Urine Ketones Negative (NEGATIVE) mg/dL Urine Occult Blood Small H (NEGATIVE) Urine Nitrite Negative (NEGATIVE) Urine Bilirubin Negative (NEGATIVE) Urine Urobilinogen 0.2 (0.2-1.0) EU/dL Ur Leukocyte Esterase Trace H (NEGATIVE) Urine RBC 0-5 (0-5) Urine WBC 5-10 H (0-5) Ur Epithelial Cells Rare Amorphous Sediment Few Urine Bacteria Moderate Urine Mucus Not seen 03/07/21 03/07/21 03/08/21 Range/Units 17:49 21:05 07:26 WBC (4.5-11.0) K/uL RBC (3.30-5.50) M/uL Hgb (12.0-15.0) g/dL Hct (36.0-48.0) % MCV (80-98) fL MCH (27-31) pg MCHC (32-36) % Plt Count (150-400) K/uL Add Manual Diff Neutrophils % (Manual) (36-66) % Band Neutrophils % (5-11) % Lymphocytes % (Manual) (24-44) % Monocytes % (Manual) (2-6) % Eosinophils % (Manual) (2-4) % Anisocytosis Sodium (140-148) mmol/L Potassium (3.6-5.2) mmol/L Chloride (100-108) mmol/L Carbon Dioxide (21-32) mmol/L Anion Gap (5.0-14.0) mmol/L BUN (7-18) mg/dL Creatinine (0.6-1.0) mg/dL Est Cr Clr Drug Dosing mL/min Estimated GFR (MDRD) (>60) Glucose (74-106) mg/dL POC Glucose 99 73 L 76 (74-106) mg/dL Calcium (8.5-10.1) mg/dL Magnesium (1.8-2.4) mg/dL Total Bilirubin (0.2-1.0) mg/dL AST (15-37) U/L ALT (12-78) U/L Alkaline Phosphatase (46-116) U/L C-Reactive Protein (0.0-0.3) mg/dL NT-Pro-B Natriuret Pep (5-450) pg/mL Total Protein (6.4-8.2) g/dL Albumin (3.4-5.0) g/dL Globulin (2.3-3.5) g/dL Albumin/Globulin Ratio (1.2-2.2) TSH, Ultra Sensitive (0.358-3.740) uIU/mL Urine Color (YELLOW) Urine Appearance (CLEAR) Urine pH (5.0-8.0) Ur Specific [place] (1.008-1.030) Urine Protein (NEGATIVE) mg/dL Urine Glucose (UA) (NEGATIVE) mg/dL Urine Ketones (NEGATIVE) mg/dL Urine Occult Blood (NEGATIVE) Urine Nitrite (NEGATIVE) Urine Bilirubin (NEGATIVE) Urine Urobilinogen (0.2-1.0) EU/dL Ur Leukocyte Esterase (NEGATIVE) Urine RBC (0-5) Urine WBC (0-5) Ur Epithelial Cells Amorphous Sediment Urine Bacteria Urine Mucus 03/08/21 Range/Units 11:49 WBC (4.5-11.0) K/uL RBC (3.30-5.50) M/uL Hgb (12.0-15.0) g/dL Hct (36.0-48.0) % MCV (80-98) fL MCH (27-31) pg MCHC (32-36) % Plt Count (150-400) K/uL Add Manual Diff Neutrophils % (Manual) (36-66) % Band Neutrophils % (5-11) % Lymphocytes % (Manual) (24-44) % Monocytes % (Manual) (2-6) % Eosinophils % (Manual) (2-4) % Anisocytosis Sodium (140-148) mmol/L Potassium (3.6-5.2) mmol/L Chloride (100-108) mmol/L Carbon Dioxide (21-32) mmol/L Anion Gap (5.0-14.0) mmol/L BUN (7-18) mg/dL Creatinine (0.6-1.0) mg/dL Est Cr Clr Drug Dosing mL/min Estimated GFR (MDRD) (>60) Glucose (74-106) mg/dL POC Glucose 92 (74-106) mg/dL Calcium (8.5-10.1) mg/dL Magnesium (1.8-2.4) mg/dL Total Bilirubin (0.2-1.0) mg/dL AST (15-37) U/L ALT (12-78) U/L Alkaline Phosphatase (46-116) U/L C-Reactive Protein (0.0-0.3) mg/dL NT-Pro-B Natriuret Pep (5-450) pg/mL Total Protein (6.4-8.2) g/dL Albumin (3.4-5.0) g/dL Globulin (2.3-3.5) g/dL Albumin/Globulin Ratio (1.2-2.2) TSH, Ultra Sensitive (0.358-3.740) uIU/mL Urine Color (YELLOW) Urine Appearance (CLEAR) Urine pH (5.0-8.0) Ur Specific [place] (1.008-1.030) Urine Protein (NEGATIVE) mg/dL Urine Glucose (UA) (NEGATIVE) mg/dL Urine Ketones (NEGATIVE) mg/dL Urine Occult Blood (NEGATIVE) Urine Nitrite (NEGATIVE) Urine Bilirubin (NEGATIVE) Urine Urobilinogen (0.2-1.0) EU/dL Ur Leukocyte Esterase (NEGATIVE) Urine RBC (0-5) Urine WBC (0-5) Ur Epithelial Cells Amorphous Sediment Urine Bacteria Urine Mucus Result Diagrams: 03/07/21 13:49 03/07/21 13:49 Sepsis Event Note - Evaluation Sepsis Screening Result: No Definite Risk - Focused Exam Vital Signs: Vital Signs Temp Pulse Pulse Resp BP BP Pulse Ox 03/08/21 08:46 98 104/54 L 03/08/21 08:43 104/54 L 03/08/21 07:46 96.7 F L 98 18 104/54 L 92 L 03/08/21 04:00 16 - Problem List Review Problem List Initiated/Reviewed/Updated: Yes - My Orders Last 24 Hours: My Active Orders 03/07/21 Lunch 2 Gram Sodium Diet [DIET] 03/07/21 16:04 Resuscitation Status Routine 03/07/21 16:58 Acetaminophen [TylenoL] 650 mg PO Q4H PRN Dextrose 50% in Water 50 ml IV ONETIME PRN Dextrose [Glutose 15] 15 gm PO ONETIME PRN LORazepam [Ativan ORAL Concentrate 1MG/0.5 ML U/D] 0.5 mg BUCCAL Q2H PRN Morphine [Morphine 10 MG/0.5 ML Oral Syringe] 5 mg BUCCAL Q2H PRN Ondansetron [Zofran] 4 mg IV Q4H PRN Sodium Chloride 0.9% [Saline Flush] 10 ml FLUSH ASDIRECTED PRN polyethylene glycoL 3350 [MiraLAX] 17 gm PO DAILY PRN 03/07/21 16:58 Patient Status [ADT] Routine Communication Order [RC] STAT Diabetes Education [RC] Click to Edit Height and Weight [RC] DAILY Intake and Output [RC] QSHIFT Notify Provider Vital Signs [RC] ASDIRECTED Notify Provider [RC] .PRN Oxygen Therapy [RC] .PRN Up With Assistance [RC] ASDIRECTED Up to Chair [RC] QID VTE/DVT Education [RC] Per Unit Routine Vital Signs [RC] Q12H Elastic Wrap [OM.PC] Routine Saline Lock Insert [OM.PC] Routine VTE Mechanical Contraindications [AST] Per Unit Routine VTE Pharmacological Contraindications [AST] Per Unit Routine 03/07/21 17:00 Insulin Lispro [HumaLOG] See Protocol SUBCUT QIDACANDBED 03/07/21 18:00 Bumetanide [Bumex] 2 mg IVPUSH Q12H 03/08/21 08:10 Hypromellose [GenTeal Mild to Moderate Ophth Soln] 0 ml EYEBOTH QID PRN 03/08/21 09:00 Aspirin [Halfprin] 81 mg PO DAILY Losartan [Cozaar] 12.5 mg PO DAILY Magnesium Oxide 200 mg PO DAILY Metoprolol Succinate [Toprol XL] 12.5 mg PO DAILY Nystatin [Nystop] 0 gm TOP BID Spironolactone [Aldactone] 25 mg PO DAILY 03/08/21 16:30 GLUCOSE POC LAB TO COLLECT JPM [POC] QIDACANDBED 03/08/21 21:00 GLUCOSE POC LAB TO COLLECT JPM [POC] QIDACANDBED 03/09/21 07:30 GLUCOSE POC LAB TO COLLECT JPM [POC] QIDACANDBED 03/09/21 11:30 GLUCOSE POC LAB TO COLLECT JPM [POC] QIDACANDBED 03/09/21 16:30 GLUCOSE POC LAB TO COLLECT JPM [POC] QIDACANDBED 03/09/21 21:00 GLUCOSE POC LAB TO COLLECT JPM [POC] QIDACANDBED 03/10/21 07:30 GLUCOSE POC LAB TO COLLECT JPM [POC] QIDACANDBED 03/10/21 11:30 GLUCOSE POC LAB TO COLLECT JPM [POC] QIDACANDBED 03/10/21 16:30 GLUCOSE POC LAB TO COLLECT JPM [POC] QIDACANDBED 03/10/21 21:00 GLUCOSE POC LAB TO COLLECT JPM [POC] QIDACANDBED 03/11/21 07:30 GLUCOSE POC LAB TO COLLECT JPM [POC] QIDACANDBED 03/11/21 11:30 GLUCOSE POC LAB TO COLLECT JPM [POC] QIDACANDBED 03/11/21 16:30 GLUCOSE POC LAB TO COLLECT JPM [POC] QIDACANDBED 03/11/21 21:00 GLUCOSE POC LAB TO COLLECT JPM [POC] QIDACANDBED 03/12/21 07:30 GLUCOSE POC LAB TO COLLECT JPM [POC] QIDACANDBED 03/12/21 11:30 GLUCOSE POC LAB TO COLLECT JPM [POC] QIDACANDBED 03/12/21 16:30 GLUCOSE POC LAB TO COLLECT JPM [POC] QIDACANDBED - Plan Plan:: ASSESSMENT AND PLAN DIASTOLIC CONGESTIVE HEART FAILURE/RIGHT HEART FAILURE-stable since admission with improved pain control on current therapy -2 g sodium diet -IV Bumex 2 mg twice daily -Medication as needed for comfort -Wrap both lower extremities daily CHRONIC KIDNEY DISEASE STAGE III TYPE 2 DIABETES MELLITUS -Hold long-acting insulin -4 times daily glucometers -Low-dose sliding scale Humalog PALLIATIVE CARE-she would like to proceed with comfort cares only, but does not want hospice admission -Morphine and lorazepam as needed for comfort MAINTENANCE ISSUES -DVT prophylaxis; not indicated -GI prophylaxis; not indicated -[place] catheter; not indicated -Nutrition; 2 g sodium diet -Nicotine dependence; not required CODE STATUS-FULL CODE ADMISSION STATUS-patient will be admitted to inpatient status, expect at least a 2 night hospital stay for evaluation and management of problems as outlined above. At the time of this admission I do not reasonably expected evaluation and management of this problem will require more than a 96 hour hospital stay. DISPOSITION-anticipate discharge to home after the hospital stay. PRIMARY CARE PROVIDER-Dr. Cabrera
--- NOTE | 2021-03-08 13:58 | PCM.DCSUM1 ---
Discharge Summary - Hospital Course Brief History: Ms. Angulo is an 86-year-old woman who was admitted through the emergency department with diastolic congestive heart failure exacerbation and progressive weakness. - Discharge Data Discharge Date: 03/09/21 Discharge Disposition: DC/Tfer to SNF 03 Condition: Poor - Referral to Home Health Primary Care Physician: PCP Unknown - Discharge Diagnosis/Problem(s) (1) (HFpEF) heart failure with preserved ejection fraction SNOMED Code(s): 488906011 ICD Code: I50.30 - UNSPECIFIED DIASTOLIC (CONGESTIVE) HEART FAILURE Status: Acute Current Visit: No Qualifiers: Heart failure chronicity: acute on chronic Qualified Code(s): I50.33 - Acute on chronic diastolic (congestive) heart failure (2) Pulmonary hypertension SNOMED Code(s): 39812170 ICD Code: I27.20 - PULMONARY HYPERTENSION, UNSPECIFIED Status: Chronic Current Visit: No (3) Low back pain SNOMED Code(s): 863530353 ICD Code: M54.5 - LOW BACK PAIN Status: Acute Current Visit: No (4) Type 2 diabetes mellitus SNOMED Code(s): 59179521 ICD Code: E11.9 - TYPE 2 DIABETES MELLITUS WITHOUT COMPLICATIONS Status: Chronic Current Visit: Yes Qualifiers: Diabetes mellitus intermediate project manager insulin use: with assisted use Diabetes mellitus complication status: with other specified complication Qualified Code(s): E11.69 - Type 2 diabetes mellitus with other specified complication; Z79.4 - custodial (current) use of insulin (5) CKD (chronic kidney disease) SNOMED Code(s): 780963671 ICD Code: N18.9 - CHRONIC KIDNEY DISEASE, UNSPECIFIED Status: Chronic Current Visit: Yes Qualifiers: Chronic kidney disease stage: stage 3 (moderate) Chronic kidney disease stage 3 subtype: stage 3b (GFR 30-44) Qualified Code(s): N18.32 - Chronic kidney disease, stage 3b - Patient Summary/Data Hospital Course: Ms. 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 Ms. Angulo was hospitalized at this facility about 2 weeks ago and did receive diuretic therapy as well as wraps to both lower extremities. While she was here edema did improve, but did not totally resolve. Because of severe weakness she [facility] and Occupational Therapy. Since being at the prison she has had increase in her peripheral edema involving both lower extremities as well as both upper extremities. She does have underlying chronic kidney disease. Echocardiogram obtained during her last hospital stay showed evidence of significant diastolic dysfunction of the left ventricle as well as right-sided heart failure. She is very weakened and fatigued by her underlying medical problems and feels as though she is slowly dying. She does not want to consider further aggressive interventions or evaluation and would like to be kept comfortable. On admission she was placed on IV Bumex twice daily. She was also started on liquid morphine and lorazepam as needed for comfort per her request. She will be discharged back to the prison with comfort cares only and ongoing use of morphine and lorazepam as needed. She will remain on diuretic therapy as well as JANINA inhibitor and metoprolol. We discussed possible hospice consult which she has refused but would like to be on comfort cares only. She does not want further hospitalizations, aggressive interventions or evaluation. She will be on a low- sodium diet and activity will be as tolerated. - Patient Instructions Diet: Low Sodium Activity: As Tolerated Other/Special Instructions: DNR/DNI, comfort cares only. - Discharge Plan *PRESCRIPTION DRUG MONITORING PROGRAM REVIEWED*: Not Applicable *COPY OF PRESCRIPTION DRUG MONITORING REPORT IN PATIENT CHAS: Not Applicable Prescriptions/Med Rec: LORazepam [Ativan ORAL Concentrate 1MG/0.5 ML U/D] 0.5 mg BUCCAL Q2H PRN #15 ml PRN Reason: Anxiety Morphine Sulfate 5 mg BUCCAL Q1H PRN #15 ml PRN Reason: Pain Home Medications: Home Meds cycloSPORINE [Restasis] 1 drop EYEBOTH BID 05/01/14 [History] Aspirin 81 mg PO DAILY 03/02/15 [History] Magnesium Chloride [Mag-64] 64 mg PO DAILY 03/02/15 [History] Losartan Potassium 12.5 mg PO DAILY 02/08/19 [History] Acetaminophen [Tylenol] 650 mg PO Q4H PRN #100 tablet 02/26/21 [Rx] Metoprolol Succinate [Toprol XL] 12.5 mg PO DAILY #30 tab.er 02/26/21 [Rx] Nystatin 1 gm TP BID #60 gram 02/26/21 [Rx] Spironolactone [Aldactone] 25 mg PO DAILY #30 tablet 02/26/21 [Rx] Bumetanide 2 mg PO BID 03/08/21 [History] LORazepam [Ativan ORAL Concentrate 1MG/0.5 ML U/D] 0.5 mg BUCCAL Q2H PRN #15 ml 03/08/21 [Rx] Morphine Sulfate 5 mg BUCCAL Q1H PRN #15 ml 03/08/21 [Rx] - Discharge Summary/Plan Comment DC Time >30 min.: No - Patient Data Vitals - Most Recent: Last Vital Signs Temp 96.7 F L 03/08/21 07:46 Pulse 98 03/08/21 08:46 Resp 18 03/08/21 07:46 BP 104/54 L 03/08/21 08:46 Pulse Ox 92 L 03/08/21 07:46 Weight - Most Recent: 201 lb 4.513 oz I&O - Last 24 hours: Intake & Output 03/07/21 03/08/21 03/08/21 22:59 06:59 14:59 Intake Total 100 240 360 Output Total 300 Balance -200 240 360 Lab Results - Last 24 hrs: Laboratory Results - last 24 hr 03/07/21 03/07/21 03/07/21 Range/Units 13:49 13:49 14:48 WBC 7.5 (4.5-11.0) K/uL RBC 4.55 (3.30-5.50) M/uL Hgb 14.2 (12.0-15.0) g/dL Hct 44.3 (36.0-48.0) % MCV 97 (80-98) fL MCH 31 (27-31) pg MCHC 32 (32-36) % Plt Count 110 L (150-400) K/uL Add Manual Diff Yes Neutrophils % (Manual) 81 H (36-66) % Band Neutrophils % 2 L (5-11) % Lymphocytes % (Manual) 8 L (24-44) % Monocytes % (Manual) 7 H (2-6) % Eosinophils % (Manual) 2 (2-4) % Anisocytosis Moderate H Sodium 136 L (140-148) mmol/L Potassium 4.7 (3.6-5.2) mmol/L Chloride 99 L (100-108) mmol/L Carbon Dioxide 24 (21-32) mmol/L Anion Gap 17.7 H (5.0-14.0) mmol/L BUN 49 H (7-18) mg/dL Creatinine 1.6 H (0.6-1.0) mg/dL Est Cr Clr Drug Dosing 24.50 mL/min Estimated GFR (MDRD) 31 L (>60) Glucose 96 (74-106) mg/dL POC Glucose (74-106) mg/dL Calcium 8.3 L (8.5-10.1) mg/dL Magnesium 2.0 (1.8-2.4) mg/dL Total Bilirubin 1.5 H D (0.2-1.0) mg/dL AST 27 (15-37) U/L ALT 14 (12-78) U/L Alkaline Phosphatase 234 H (46-116) U/L C-Reactive Protein 14.67 H (0.0-0.3) mg/dL NT-Pro-B Natriuret Pep 21176 H (5-450) pg/mL Total Protein 5.4 L (6.4-8.2) g/dL Albumin 2.2 L (3.4-5.0) g/dL Globulin 3.2 (2.3-3.5) g/dL Albumin/Globulin Ratio 0.7 L (1.2-2.2) TSH, Ultra Sensitive 1.659 (0.358-3.740) uIU/mL Urine Color Yellow (YELLOW) Urine Appearance Clear (CLEAR) Urine pH 5.0 (5.0-8.0) Ur Specific [place] <= 1.005 L (1.008-1.030) Urine Protein Negative (NEGATIVE) mg/dL Urine Glucose (UA) Negative (NEGATIVE) mg/dL Urine Ketones Negative (NEGATIVE) mg/dL Urine Occult Blood Small H (NEGATIVE) Urine Nitrite Negative (NEGATIVE) Urine Bilirubin Negative (NEGATIVE) Urine Urobilinogen 0.2 (0.2-1.0) EU/dL Ur Leukocyte Esterase Trace H (NEGATIVE) Urine RBC 0-5 (0-5) Urine WBC 5-10 H (0-5) Ur Epithelial Cells Rare Amorphous Sediment Few Urine Bacteria Moderate Urine Mucus Not seen 03/07/21 03/07/21 03/08/21 Range/Units 17:49 21:05 07:26 WBC (4.5-11.0) K/uL RBC (3.30-5.50) M/uL Hgb (12.0-15.0) g/dL Hct (36.0-48.0) % MCV (80-98) fL MCH (27-31) pg MCHC (32-36) % Plt Count (150-400) K/uL Add Manual Diff Neutrophils % (Manual) (36-66) % Band Neutrophils % (5-11) % Lymphocytes % (Manual) (24-44) % Monocytes % (Manual) (2-6) % Eosinophils % (Manual) (2-4) % Anisocytosis Sodium (140-148) mmol/L Potassium (3.6-5.2) mmol/L Chloride (100-108) mmol/L Carbon Dioxide (21-32) mmol/L Anion Gap (5.0-14.0) mmol/L BUN (7-18) mg/dL Creatinine (0.6-1.0) mg/dL Est Cr Clr Drug Dosing mL/min Estimated GFR (MDRD) (>60) Glucose (74-106) mg/dL POC Glucose 99 73 L 76 (74-106) mg/dL Calcium (8.5-10.1) mg/dL Magnesium (1.8-2.4) mg/dL Total Bilirubin (0.2-1.0) mg/dL AST (15-37) U/L ALT (12-78) U/L Alkaline Phosphatase (46-116) U/L C-Reactive Protein (0.0-0.3) mg/dL NT-Pro-B Natriuret Pep (5-450) pg/mL Total Protein (6.4-8.2) g/dL Albumin (3.4-5.0) g/dL Globulin (2.3-3.5) g/dL Albumin/Globulin Ratio (1.2-2.2) TSH, Ultra Sensitive (0.358-3.740) uIU/mL Urine Color (YELLOW) Urine Appearance (CLEAR) Urine pH (5.0-8.0) Ur Specific [place] (1.008-1.030) Urine Protein (NEGATIVE) mg/dL Urine Glucose (UA) (NEGATIVE) mg/dL Urine Ketones (NEGATIVE) mg/dL Urine Occult Blood (NEGATIVE) Urine Nitrite (NEGATIVE) Urine Bilirubin (NEGATIVE) Urine Urobilinogen (0.2-1.0) EU/dL Ur Leukocyte Esterase (NEGATIVE) Urine RBC (0-5) Urine WBC (0-5) Ur Epithelial Cells Amorphous Sediment Urine Bacteria Urine Mucus 03/08/21 Range/Units 11:49 WBC (4.5-11.0) K/uL RBC (3.30-5.50) M/uL Hgb (12.0-15.0) g/dL Hct (36.0-48.0) % MCV (80-98) fL MCH (27-31) pg MCHC (32-36) % Plt Count (150-400) K/uL Add Manual Diff Neutrophils % (Manual) (36-66) % Band Neutrophils % (5-11) % Lymphocytes % (Manual) (24-44) % Monocytes % (Manual) (2-6) % Eosinophils % (Manual) (2-4) % Anisocytosis Sodium (140-148) mmol/L Potassium (3.6-5.2) mmol/L Chloride (100-108) mmol/L Carbon Dioxide (21-32) mmol/L Anion Gap (5.0-14.0) mmol/L BUN (7-18) mg/dL Creatinine (0.6-1.0) mg/dL Est Cr Clr Drug Dosing mL/min Estimated GFR (MDRD) (>60) Glucose (74-106) mg/dL POC Glucose 92 (74-106) mg/dL Calcium (8.5-10.1) mg/dL Magnesium (1.8-2.4) mg/dL Total Bilirubin (0.2-1.0) mg/dL AST (15-37) U/L ALT (12-78) U/L Alkaline Phosphatase (46-116) U/L C-Reactive Protein (0.0-0.3) mg/dL NT-Pro-B Natriuret Pep (5-450) pg/mL Total Protein (6.4-8.2) g/dL Albumin (3.4-5.0) g/dL Globulin (2.3-3.5) g/dL Albumin/Globulin Ratio (1.2-2.2) TSH, Ultra Sensitive (0.358-3.740) uIU/mL Urine Color (YELLOW) Urine Appearance (CLEAR) Urine pH (5.0-8.0) Ur Specific [place] (1.008-1.030) Urine Protein (NEGATIVE) mg/dL Urine Glucose (UA) (NEGATIVE) mg/dL Urine Ketones (NEGATIVE) mg/dL Urine Occult Blood (NEGATIVE) Urine Nitrite (NEGATIVE) Urine Bilirubin (NEGATIVE) Urine Urobilinogen (0.2-1.0) EU/dL Ur Leukocyte Esterase (NEGATIVE) Urine RBC (0-5) Urine WBC (0-5) Ur Epithelial Cells Amorphous Sediment Urine Bacteria Urine Mucus Med Orders - Current: Current Medications Acetaminophen (Acetaminophen 325 Mg Tab) 650 mg PO Q4H PRN PRN Reason: Pain (Mild 1-3)/fever Artificial Tears (Hypromellose 0.3% Ophth Soln 15 Ml Bottle) 0 ml EYEBOTH QID PRN PRN Reason: DRY EYES Aspirin (Aspirin 81 Mg Tab.Ec) 81 mg PO DAILY [facility] Last Admin: 03/08/21 08:43 Dose: 81 mg Documented by: Bumetanide (Bumetanide 2.5 Mg/10 Ml Mdv) 2 mg IVPUSH Q12H [facility] Last Admin: 03/08/21 06:17 Dose: 2 mg Documented by: Dextrose (Glucose Gel 15 Gm In 37.5 Gm Tube) 15 gm PO ONETIME PRN PRN Reason: Hypoglycemia Dextrose/Water (50% Dextrose In Water 50 Ml Syringe) 50 ml IV ONETIME PRN PRN Reason: Hypoglycemia Insulin Human Lispro (Insulin Lispro 100 Unit/Ml 3 Ml Kwikpen) 0 unit SUBCUT QIDACANDBED [facility]; Protocol Last Admin: 03/08/21 12:10 Dose: Not Given Documented by: Lorazepam (Lorazepam Oral Concentrate 1mg/0.5ml U/D) 0.5 mg BUCCAL Q2H PRN PRN Reason: Anxiety Last Admin: 03/08/21 13:35 Dose: 0.5 mg Documented by: Losartan Potassium (Losartan 25 Mg Tab) 12.5 mg PO DAILY [facility] Last Admin: 03/08/21 08:43 Dose: 12.5 mg Documented by: Magnesium Oxide (Magnesium Oxide 400 Mg Tab) 200 mg PO DAILY [facility] Last Admin: 03/08/21 08:42 Dose: 200 mg Documented by: Metoprolol Succinate (Metoprolol Succinate 25 Mg Tab.Er) 12.5 mg PO DAILY [facility] Last Admin: 03/08/21 08:46 Dose: 12.5 mg Documented by: Morphine Sulfate (Morphine 10 Mg/0.5 Ml Oral Syringe) 5 mg BUCCAL Q2H PRN PRN Reason: Pain Last Admin: 03/08/21 12:29 Dose: 5 mg Documented by: Nystatin (Nystatin Topical Powder 15 Gm Bottle) 0 gm TOP BID [facility] Last Admin: 03/08/21 08:43 Dose: 1 applic Documented by: Ondansetron HCl (Ondansetron 4 Mg/2 Ml Sdv) 4 mg IV Q4H PRN PRN Reason: Nausea/Vomiting Polyethylene Glycol (Polyethylene Glycol 3350 Powder 17 Gm Packet) 17 gm PO DAILY PRN PRN Reason: Constipation Sodium Chloride (Sodium Chloride 0.9% 10 Ml Syringe) 10 ml FLUSH ASDIRECTED PRN PRN Reason: Keep Vein Open Spironolactone (Spironolactone 25 Mg Tab) 25 mg PO DAILY [facility] Last Admin: 03/08/21 08:43 Dose: 25 mg Documented by: Discontinued Medications Sodium Chloride (Sodium Chloride 0.9% 10 Ml Syringe) 10 ml FLUSH ASDIRECTED PRN PRN Reason: Keep Vein Open Last Admin: 03/07/21 13:55 Dose: 10 ml Documented by: Tramadol HCl (Tramadol 50 Mg Tab) 50 mg PO ONETIME ONE Stop: 03/07/21 15:39 Last Admin: 03/07/21 15:42 Dose: 50 mg Documented by: - Exam General: Reports: Alert, Oriented, Cooperative, No Acute Distress Lungs: Reports: Normal Respiratory Effort, Rales. Denies: Crackles, Rhonchi, Wheezing Cardiovascular: Reports: Regular Rate, Regular Rhythm, Murmurs GI/Abdominal Exam: Soft, Non-Tender, No Organomegaly, No Distention Extremities: Pedal Edema *Q Meaningful Use (DIS) - VTE *Q VTE Mechanical Contraindications *Q: Bilateral Lower Edema VTE Pharmacological Contraindications *Q: Not Candidate LT Anticoag
[2021-03-08 20:06] VITALS: BP 91/59; PULSE 88
[2021-03-09] MEDS: Morphine 10 MG/0.5 ML Oral Syringe BUCCAL PRN (00:09)
[2021-03-09] MEDS: Bumetanide 2.5 MG/10 ML MDV IVPUSH SCH (05:49)
== END 2021-03-09 07:16 | DRG 291 ==
LOC: JP.ED 11:20 → JP.MS 16:15
PROVIDERS: ADMIT Hospitalist; ATTEND Hospitalist
DX: I13.0 Hypertensive heart and chronic kidney disease with heart failure and stage 1 through stage 4 chronic kidney disease, or unspecified chronic kidney disease (principal); I50.9 Heart failure, unspecified; I50.33 Acute on chronic diastolic (congestive) heart failure; E11.69 Type 2 diabetes mellitus with other specified complication; I27.20 Pulmonary hypertension, unspecified; Z66 Do not resuscitate; Z51.5 Encounter for palliative care; M54.5 Low back pain; M54.9 Dorsalgia, unspecified; I50.813 Acute on chronic right heart failure; E11.22 Type 2 diabetes mellitus with diabetic chronic kidney disease; N18.32 Chronic kidney disease, stage 3b; Z88.9 Allergy status to unspecified drugs, medicaments and biological substances; H54.7 Unspecified visual loss; I25.10 Atherosclerotic heart disease of native coronary artery without angina pectoris; E78.00 Pure hypercholesterolemia, unspecified; G89.29 Other chronic pain; E66.9 Obesity, unspecified; Z85.038 Personal history of other malignant neoplasm of large intestine; Z98.49 Cataract extraction status, unspecified eye; Z79.4 Long term (current) use of insulin; Z79.82 Long term (current) use of aspirin; Z79.899 Other long term (current) drug therapy; Z91.013 Allergy to seafood; Z91.048 Other nonmedicinal substance allergy status; Z95.1 Presence of aortocoronary bypass graft; Z90.49 Acquired absence of other specified parts of digestive tract
CPT/HCPCS: 36415; 80053; 81001; 83735; 83880; 84443; 85025; 86140; A9270; 82947; 99285; J1815; J3490